=== PATIENT | female | born 1995 | race Caucasian/White ===

== ENCOUNTER 2018-03-23 12:16 | Emergency (ER) | payer BC ==
[~2018-03-23] VITALS: Ht 165.1 cm; Wt 63.6 kg
[2018-03-23 14:08] LABS: BASO % 0.4 % (0.0-1.0); EOS % 0.5 % (0.0-3.0); HEMATOCRIT 44.3 % (36.0-47.0); HEMOGLOBIN 15.2 g/dl (12.0-15.5); LYMPH # 2.3 10^3/uL (1.5-6.5); LYMPH % 26.5 % (24.0-44.0); MEAN CORPUSCULAR HEMOGLOBIN 30.9 pg (27.0-33.0); MEAN CORPUSCULAR HGB CONC 34.3 g/dl (32.0-36.5); MONO # 0.5 10^3/uL (0.0-0.8); MONO % 6.1 % (0.0-5.0); NEUTROPHILS # 5.6 10^3/uL (1.8-7.7); NEUTROPHILS % 66.3 % (36.0-66.0); PLATELET COUNT, AUTOMATED 279 10^3/uL (150-450); RED BLOOD COUNT 4.92 10^6/uL (4.00-5.40); WHITE BLOOD COUNT 8.5 10^3/uL (4.0-10.0)
--- NOTE | 2018-03-23 14:18 | REP ---
Chest two views HISTORY: Chest pain Comparison: None The lungs are clear. The heart is normal in size. The pulmonary vasculature is normal in appearance. The bony structure is intact. IMPRESSION: No acute disease. Electronically Signed by Sriram Tavares MD 03/23/2018 02:10 P
[2018-03-23 14:50] LABS: HCG, SERUM QUALITATIVE NEGATIVE (NEGATIVE)
[2018-03-23 15:16] LABS: ERYTHROCYTE SEDIMENTATION RATE 2 mm/hr (0-20)
[2018-03-23 15:44] LABS: ALBUMIN 4.4 GM/DL (3.2-5.2); ALT/SGPT 26 U/L (12-78); BILIRUBIN,DIRECT 0.1 MG/DL (0.0-0.2); BILIRUBIN,TOTAL 0.3 MG/DL (0.2-1.0); BLOOD UREA NITROGEN 12 MG/DL (7-18); C REACTIVE PROTEIN QUANTITATIV < 0.30 MG/DL (0.00-0.30); CALCIUM LEVEL 9.2 MG/DL (8.5-10.1); CARBON DIOXIDE LEVEL 24 MEQ/L (21-32); CHLORIDE LEVEL 106 MEQ/L (98-107); CK-MB VALUE MASS < 1.0 NG/ML (<3.6); CPK CREATINE PHOSPHOKINASE 85 U/L (26-192); CREATININE FOR GFR 0.84 MG/DL (0.55-1.30); GLUCOSE, FASTING 88 MG/DL (70-100); LIPASE 210 U/L (73-393); MB/CK RELATIVE INDEX 1.18 (< OR =4); POTASSIUM SERUM 4.3 MEQ/L (3.5-5.1); SODIUM LEVEL 139 MEQ/L (136-145); TOTAL PROTEIN 8.1 GM/DL (6.4-8.2); TROPONIN I < 0.02 NG/ML (< 0.10)
[2018-03-23 16:05] VITALS: BP 122/68
--- NOTE | 2018-03-24 09:01 | ECGEPIP ---
Stationary ECG Study [facility] - ED Test Date: 2018-03-23 Pat Name: ANDREA BOLAND Department: Room: - Gender: F Dairy Clerk: tk : 1995 Requested By: BYRON VERGARA Order Number: [id number] Reading MD: Zuri Lo Measurements Intervals [place] Rate: 87 P: 44 [place]: 104 QRS: 46 QRSD: 103 T: -6 QT: 371 QTc: 446 Interpretive Statements SINUS RHYTHM WITH SHORT [place] INTERVAL MODERATE ST DEPRESSION NO PRIOR FOR COMPARISON Electronically Signed On 03-24-2018 9:01:21 EST by Zuri Lo
== END 2018-03-23 16:06 | disposition home or self-care (01) ==
LOC: M ED 12:16
DX: R07.89 Other chest pain (principal); F43.10 Post-traumatic stress disorder, unspecified; F41.9 Anxiety disorder, unspecified; F32.9 Major depressive disorder, single episode, unspecified; Z82.49 Family history of ischemic heart disease and other diseases of the circulatory system; Z88.0 Allergy status to penicillin; Z88.5 Allergy status to narcotic agent; Z91.89 Other specified personal risk factors, not elsewhere classified

== ENCOUNTER → 2018-04-26 | Outpatient (REF) | payer BC ==
[2018-04-26 20:47] LABS: BACTERIA, URINE AUTO 1+ (NEGATIVE); RBC, URINE AUTO 0 /HPF (0-3); SQUAMOUS EPITHELIAL CELL UR AU 1 /HPF (0-6); WBC, URINE AUTO 0 /HPF (0-3)
[2018-04-26 22:05] LABS: CHLAMYDIA DNA AMPLIFICATION NEGATIVE (NEGATIVE); GC DNA AMPLIFICATION NEGATIVE (NEGATIVE)
== END ==
LOC: M LAB REF 19:12
PROVIDERS: ATTEND Physician Assistant
DX: R30.0 Dysuria (principal)

== ENCOUNTER → 2018-11-24 | Outpatient (REF) | payer OTHER ==
[~2018-11-24] MED LIST: ACET1TAB55 PO; PRENTAB9 PO
== END ==
LOC: M SFHCLERA 10:22
PROVIDERS: ATTEND Nurse Practitioner Family
DX: J02.9 Acute pharyngitis, unspecified (principal)

== ENCOUNTER 2018-12-02 12:43 | Emergency (ER) | payer OTHER ==
[~2018-12-02] VITALS: Ht 167.6 cm; Wt 75.0 kg
[2018-12-02 13:16] LABS: BASO % 0.5 % (0.0-1.0); EOS # 0.1 10^3/uL (0.0-0.5); EOS % 0.7 % (0.0-3.0); HEMATOCRIT 43.6 % (36.0-47.0); HEMOGLOBIN 14.9 g/dl (12.0-15.5); LYMPH # 2.5 10^3/uL (1.5-5.0); LYMPH % 29.9 % (24.0-44.0); MEAN CORPUSCULAR HGB CONC 34.2 g/dl (32.0-36.5); MEAN CORPUSCULAR VOLUME 90.8 fl (80.0-96.0); MONO # 0.6 10^3/uL (0.0-0.8); MONO % 6.9 % (0.0-5.0); NEUTROPHILS # 5.3 10^3/uL (1.5-8.5); NEUTROPHILS % 61.8 % (36.0-66.0); PLATELET COUNT, AUTOMATED 329 10^3/uL (150-450); WHITE BLOOD COUNT 8.5 10^3/uL (4.0-10.0)
--- NOTE | 2018-12-02 14:14 | REP ---
Vaginal bleeding. PRIORS: None. Transvesical and transvaginal imaging was obtained. The uterus measures 7.1 x 4.4 x 4.8 cm. Within the endometrial cavity, there is an anechoic structure with increased echoes surrounding it, consistent with a decidual reaction. The mean gestational sac diameter is consistent with a 5 week 3 day gestational age. A tiny anechoic structure is seen within the gestational sac, consistent with a yolk sac. Doppler interrogation shows no evidence of cardiac activity. The right ovary measures 3.2 x 1.7 x 2.1 cm and is within normal limits with a 2 cm sized dominant follicle. The right ovarian RI is 0.45. The left ovary measures 2.5 x 1.5 x 1.2 cm and is within normal limits. Left ovarian RI is 0.54. There is a trace amount of free fluid in the pelvis, which is most probably physiologic. IMPRESSION: Early OB ultrasound, as described above. Electronically Signed by Kane Jasso DO 12/02/2018 03:20 P
[2018-12-02 14:21] LABS: BLOOD UREA NITROGEN 13 MG/DL (7-18); CALCIUM LEVEL 9.4 MG/DL (8.5-10.1); CARBON DIOXIDE LEVEL 27 MEQ/L (21-32); CHLORIDE LEVEL 103 MEQ/L (98-107); CREATININE FOR GFR 0.84 MG/DL (0.55-1.30); GLOMERULAR FILTRATION RATE > 60.0 (>60); GLUCOSE, FASTING 92 MG/DL (70-100); HCG, SERUM QUANTITATIVE 1986 MIU/ML; POTASSIUM SERUM 4.1 MEQ/L (3.5-5.1); SODIUM LEVEL 137 MEQ/L (136-145)
[2018-12-02 14:45] VITALS: BP 130/82
[2018-12-02 17:03] LABS: CHLAMYDIA DNA AMPLIFICATION NEGATIVE (NEGATIVE); GC DNA AMPLIFICATION NEGATIVE (NEGATIVE)
[2018-12-02] MEDS ORDERED: PRENTAB9 PO (18:34)
[2018-12-02] MEDS ORDERED: ACET1TAB55 PO (18:37)
== END 2018-12-02 15:29 | disposition home or self-care (01) ==
LOC: M ED 12:43
DX: O20.0 Threatened abortion (principal); Z3A.01 Less than 8 weeks gestation of pregnancy; Z88.0 Allergy status to penicillin; Z88.5 Allergy status to narcotic agent; Z91.041 Radiographic dye allergy status

== ENCOUNTER 2018-12-02 17:59 | Emergency (ER) | payer OTHER ==
[~2018-12-02] VITALS: Ht 167.6 cm; Wt 75.0 kg
[2018-12-02] MEDS ORDERED: PRENTAB9 PO (18:34)
[2018-12-02] MEDS ORDERED: ACET1TAB55 PO (18:37)
[2018-12-02 19:15] VITALS: BP 137/80
== END 2018-12-02 19:22 | disposition home or self-care (01) ==
LOC: M ED 17:59
DX: O20.0 Threatened abortion (principal); Z88.0 Allergy status to penicillin; Z88.5 Allergy status to narcotic agent; Z91.041 Radiographic dye allergy status

== ENCOUNTER 2018-12-08 21:48 | Emergency (ER) | payer OTHER ==
[~2018-12-08] VITALS: Ht 167.6 cm; Wt 72.7 kg
[2018-12-08 22:23] LABS: BASO # 0.1 10^3/uL (0.0-0.2); BASO % 0.6 % (0.0-1.0); EOS # 0.2 10^3/uL (0.0-0.5); EOS % 1.7 % (0.0-3.0); HEMOGLOBIN 14.3 g/dl (12.0-15.5); LYMPH # 3.7 10^3/uL (1.5-5.0); LYMPH % 42.1 % (24.0-44.0); MEAN CORPUSCULAR VOLUME 91.1 fl (80.0-96.0); MONO # 0.8 10^3/uL (0.0-0.8); MONO % 9.6 % (0.0-5.0); NEUTROPHILS % 45.8 % (36.0-66.0); PLATELET COUNT, AUTOMATED 329 10^3/uL (150-450); RED BLOOD COUNT 4.61 10^6/uL (4.00-5.40); WHITE BLOOD COUNT 8.7 10^3/uL (4.0-10.0)
--- NOTE | 2018-12-08 23:21 | REPVR ---
PROCEDURE INFORMATION: Exam: US , Transvaginal Exam date and time: 12/08/2018 10:43 PM Clinical history: 23 years old, female; Lmp or gestational age (in weeks): 10/14/18; Other: Vaginal bleeding for approx 1 week TECHNIQUE: Imaging protocol: Real-time transvaginal obstetrical ultrasound of the maternal pelvis and a first trimester with image documentation. Transvaginal imaging was used for better evaluation of the fetus and adnexa. COMPARISON: No relevant prior studies available. FINDINGS: GESTATION: Gestation: No gestational sac demonstrated. This patient would be 8 weeks using LMP of 10/14/2018 MATERNAL: Uterus: Uterus measures 8.1 x 3.5 x 4.4 cm. Endometrial echocomplex measures 3.5 mm. Right adnexa: Right ovary measures 2.9 but 1.9 x 2 cm. Normal flow. Resistive index 0.56 Left adnexa: Left ovary measures 2.4 x 1.7 x 1.3 cm. Normal flow. Resistive index 0.5. Intraperitoneal: Minimal free fluid in the cul-de-sac. IMPRESSION: Empty uterus in a patient with vaginal bleeding with an estimated gestational age of 8 weeks based on LMP. Finding may indicate very early IUP prior to visualization of a gestational sac or fetus. Correlation with serial beta-hCG levels and follow ultrasound recommended in order to exclude ectopic verses very early or early failure. Electronically signed by: Eze Crawford On 12/08/2018 23:20:51 PM
[2018-12-09 00:23] VITALS: BP 130/6
== END 2018-12-09 00:24 | disposition home or self-care (01) ==
LOC: M ED 21:48
DX: O03.9 Complete or unspecified spontaneous abortion without complication (principal); E28.2 Polycystic ovarian syndrome; F33.9 Major depressive disorder, recurrent, unspecified; F41.9 Anxiety disorder, unspecified; F43.10 Post-traumatic stress disorder, unspecified; Z3A.08 8 weeks gestation of pregnancy; Z88.0 Allergy status to penicillin; Z88.5 Allergy status to narcotic agent; Z88.8 Allergy status to other drugs, medicaments and biological substances

== ENCOUNTER 2019-05-29 09:11 | Emergency (ER) | payer BC, OTHER ==
[~2019-05-29] VITALS: Ht 165.1 cm; Wt 75.0 kg
[2019-05-29] MEDS ORDERED: phenergan (09:19)
[2019-05-29 13:19] VITALS: BP 113/66
== END 2019-05-29 13:21 | disposition home or self-care (01) ==
LOC: M ED 09:11
DX: O99.350 Diseases of the nervous system complicating pregnancy, unspecified trimester (principal); R56.9 Unspecified convulsions; Z3A.25 25 weeks gestation of pregnancy; Z88.0 Allergy status to penicillin; Z88.6 Allergy status to analgesic agent; Z88.8 Allergy status to other drugs, medicaments and biological substances

== ENCOUNTER 2019-06-07 15:51 | Outpatient (CLI) | payer BC, OTHER ==
[~2019-06-07] VITALS: Ht 165.1 cm; Wt 79.2 kg
[~2019-06-07 15:51] MED LIST changes: +phenergan
[2019-06-07 16:24] VITALS: BP 141/69
[2019-06-07 16:44] VITALS: BP 130/76
--- NOTE | 2019-06-07 17:09 | IPN ---
DATE: 06/07/2019 A 23-year-old 3, para 0-0-2-0 female at 26 weeks gestation presents with 2 weeks of lower abdominal cramping. Pain starts in her midabdomen and radiates down low near the groin. It has gotten worse in the last 2 days. The pain is worse when she is standing upright. It is improved when she is laying down. She denies pain with urination. She just moved here from [place]. She has not had care in 6 weeks. OBJECTIVE: Blood pressure 141/69, pulse 84. She is in no apparent distress. Head and neck exam: Normal. Lungs: Clear. Heart: Regular rate and rhythm. Abdomen: Nontender, gravid. heart tones: Category 1. Contractions: None. Sterile Vaginal Exam: Long, closed, posterior. Positive tenderness over pubic bone to palpation. ASSESSMENT: A 23-year-old 3, para 0-0-2-0 female at 26 plus weeks gestation, presents with abdominal pain. The biggest cause of pain is pubic joint diastasis. PLAN: Patient will rest, take Tylenol as needed. She will followup with Dr. Amaro on 06/26/2019 as scheduled.
[2019-06-08] MEDS ORDERED: ACET-897 PO (05:05)
[2019-06-08] MEDS ORDERED: PYRI1TAB5 PO (08:08)
== END 2019-06-07 17:04 | disposition home or self-care (01) ==
LOC: M LDO 15:51
PROVIDERS: ATTEND Specialist
DX: O26.892 Other specified pregnancy related conditions, second trimester (principal); R10.2 Pelvic and perineal pain; Z3A.26 26 weeks gestation of pregnancy
CPT/HCPCS: 59025; G0378; G0463

== ENCOUNTER 2019-06-08 04:37 | Outpatient (CLI) | payer BC, OTHER ==
[~2019-06-08] VITALS: Ht 165.1 cm; Wt 79.8 kg
[2019-06-08 04:56] VITALS: BP 129/85
[2019-06-08] MEDS ORDERED: ACET-897 PO (05:05)
[2019-06-08] MEDS ORDERED: LACTATED RINGER'S 1000 ML IV STA (06:02)
[2019-06-08] MEDS ORDERED: LR 1,000 ML IV SCH (06:02)
[2019-06-08 06:16] LABS: BASO % 0.3 % (0.0-1.0); EOS # 0.1 10^3/uL (0.0-0.5); EOS % 0.7 % (0.0-3.0); HEMATOCRIT 33.7 % (36.0-47.0); HEMOGLOBIN 11.6 g/dl (12.0-15.5); LYMPH # 2.5 10^3/uL (1.5-5.0); LYMPH % 16.4 % (24.0-44.0); MEAN CORPUSCULAR HGB CONC 34.4 g/dl (32.0-36.5); MEAN CORPUSCULAR VOLUME 92.8 fl (80.0-96.0); MONO # 1.3 10^3/uL (0.0-0.8); MONO % 8.5 % (0.0-5.0); NEUTROPHILS % 73.3 % (36.0-66.0); PLATELET COUNT, AUTOMATED 272 10^3/uL (150-450); RED BLOOD COUNT 3.63 10^6/uL (4.00-5.40)
--- NOTE | 2019-06-08 06:50 | REPVR ---
PROCEDURE INFORMATION: Exam: US Retroperitoneal Limited, Kidneys Exam date and time: 06/08/2019 6:34 AM Age: 23 years old Clinical indication: Abdominal pain; ; Additional info: Hematuria, abdominal pain TECHNIQUE: Imaging protocol: Real-time ultrasound of the retroperitoneum with image documentation. Examination was focused on the kidneys. COMPARISON: No relevant prior studies available. FINDINGS: Right kidney: The right kidney measures 10.4 cm in sagittal dimension. There is no renal mass. There is no hydronephrosis. Left kidney: The left kidney measures 10.9 cm in sagittal dimension. There is mild hydronephrosis which may be physiologic. There is no renal mass or perinephric collection. Bladder: The bladder is decompressed. IMPRESSION: Mild left hydronephrosis which may be physiologic, but correlation with clinical history recommended. Electronically signed by: Santi James On 06/08/2019 06:50:01 AM
[2019-06-08] MEDS ORDERED: cefTRIAXone SOD 1 GM in D5W MINI-BAG PLUS 50 ML IV ONE (08:00)
[2019-06-08] MEDS ORDERED: PHENAZOPYRIDINE 100 MG TAB PO SCH (08:00)
[2019-06-08] MEDS ORDERED: PYRI1TAB5 PO (08:08)
[2019-06-08] MEDS ORDERED: PHENAZOPYRIDINE 100 MG TAB As Ordered ONE (08:57)
--- NOTE | 2019-06-08 11:02 | IPN ---
DATE OF EVALUATION: 06/08/2019 23-year-old, (G) 3, para (P) 0-0-2-0, female at 26 and 6/7 weeks gestation who presents with lower abdominal cramping. She feels the pain is in her urethra. She has urinary urgency, but voids very little if she tries to void. She was up most of the night with pain upon urination. She has mild abdominal cramping. She was reportedly treated intensely for urinary tract infections in [place]. However, she claims the infections never completely resolved. OBJECTIVE: Blood pressure 129/85. Pulse 120. Temperature 98. Respiratory rate 18. She is in no apparent distress. Head and Neck Exam: Normal. Lungs: Clear. Heart: Regular. Abdomen: Nontender, soft, gravid. heart tones Category 1. Contractions: None. Pelvic Exam: Patient refused. Extremities: Nontender. LABS: Urinalysis 2+ blood, 1+ leukocyte esterase, 2+ bacteria. ASSESSMENT: 23-year-old, G3, P0, female at 26 and 6/7 weeks gestation with probable urinary tract infection, possible renal nephrolithiasis. PLAN: Plan to obtain renal ultrasound. Will treat for presumed urinary tract infection (UTI) with IV Rocephin. Consider Pyridium to help with symptoms. Await results of urine culture.
== END 2019-06-08 10:30 | disposition home or self-care (01) ==
LOC: M LDO 04:37
PROVIDERS: ATTEND Specialist
DX: O26.892 Other specified pregnancy related conditions, second trimester (principal); R39.89 Other symptoms and signs involving the genitourinary system; N13.39 Other hydronephrosis; Z3A.26 26 weeks gestation of pregnancy
CPT/HCPCS: 76775; 81001; 85025; 87086; 96374; G0378; G0463; J0696

== ENCOUNTER 2019-06-11 21:24 | Outpatient (CLI) | payer BC, OTHER ==
[~2019-06-11] VITALS: Ht 165.1 cm; Wt 80.5 kg
[~2019-06-11 21:24] MED LIST changes: +ACET-897 PO; +PYRI1TAB5 PO
[2019-06-11 21:46] VITALS: BP 133/94
--- NOTE | 2019-06-11 23:36 | REPVR ---
PROCEDURE INFORMATION: Exam: US Abdomen Complete Exam date and time: 06/11/2019 11:15 PM Age: 23 years old Clinical indication: Abdominal pain; Acute; ; Additional info: Severe luq pain with hisotry of pancreatitis TECHNIQUE: Imaging protocol: Real-time ultrasound of the abdomen with image documentation. COMPARISON: RENAL US 06/08/2019 6:18 AM FINDINGS: Liver: The liver demonstrates no focal defects. Gallbladder: Status post cholecystectomy. Common bile duct: The common bile duct measures 3 mm. Pancreas: The pancreas is normal. Right kidney: The right kidney is normal measuring 10.8 cm with no hydronephrosis. Left kidney: The left kidney measures 11.0 cm with mild hydronephrosis. There is a nonobstructing left renal calculus. Spleen: The spleen is normal measuring 9.8 cm. Bladder: The visualized urinary bladder is incompletely filled. Inferior vena cava: Single intrauterine fetus with heartbeat 147 bpm. IMPRESSION: 1. Single live intrauterine fetus. 2. Status post cholecystectomy. 3. Mild left hydronephrosis with nonobstructing left renal calculus. 4. Otherwise negative abdominal sonogram. Electronically signed by: Jeramy Rousseau On 06/11/2019 23:36:51 PM
[2019-06-11] MEDS ORDERED: traMADol 50 MG TAB PO ONE (23:45)
[2019-06-11] MEDS ORDERED: PROMETHAZINE 25 MG TAB PO ONE (23:45)
[2019-06-12 03:19] VITALS: BP 124/73
[2019-06-12 07:15] VITALS: BP 135/77
[2019-06-12 07:40] VITALS: BP 138/81
[2019-06-12] MEDS ORDERED: traMADol 50 MG TAB PO ONE ×2 (09:00→15:30)
[2019-06-12] MEDS ORDERED: TAMSULOSIN 0.4 MG CAP PO SCH (09:00)
[2019-06-12] MEDS ORDERED: PROMETHAZINE 25 MG TAB PO ONE ×2 (09:00→16:30)
--- NOTE | 2019-06-12 09:25 | IPNPDOC ---
Text Note Date of Service The patient was seen on 06/12/19. NOTE Subjective: Patient is a at 27.3 weeks gestation with an DANIELA of 09/08/19. She has an appointment with Dr. Amaro in the first week in June. She has been in and out of L&D 4 times in the last week. She presents with complaints of severe LUQ pain that has been occurring for some time but started to get severe yesterday. She reports pain to be a 10/10 and can be some what managed with Phenergan, Ultram, and Tylenol. When she arrived to unit her pain was a 4 out of 10 but when she moves she reports it to be a 7/10. She reports pain is worse when she eats and she can't eat without getting the severe pain and nausea. She is also complaining of LLQ pain as cramping and left flank pain. The flank pain she reports is uncomfortable and is about a 4 but at times it gets to a 10. She was diagnosed yesterday with mild hydronephrosis with kidney stones that are not obstructive in her left kidney. Patient was able to eat a regular breakfast this morning and keep it down. She has received 2 doses of pain medication. Medical history: pancreatitis due to cholelithiasis, kidney stones, PCOS, CHTN but not on medication, asthma but not using an inhaler, heart murmur Surgical history: D&C for missed AB, gallbladder, wisdom teeth Family history: melanoma, HTN, brain tumor, breast cancer, cervical cancer. Social history: Just moved from [place]. Denies being a smoker. Denies history of alcohol or drug abuse. Objective: VS and ultrasounds: see below. FHR 130, moderate variability no decelerations. Contractions none. A+Ox3. Respiratory rate is regular with no use of accessory muscles. Abdomen: Fundus size is appropriate for gestation. Non- tender to palpation. +CVA tenderness left sided. Assessment: IUP at 27.3, kidney stones, LUQ pain, left sided flank pain and LLQ pain. Plan: Patient has multiple allergies and adverse reactions to medications and has declined most medications that were recommended to help with her pain. She was reordered Ultram 100 mg and Phenergan 25 mg PO to help with nausea and pain. Flomax ordered. Patient declined it as she states it causes her to pass out. Will continue to monitor for improvement. VS,Fishbone, I+O VS, Fishbone, I+O Vital Signs Date Time Temp Pulse Resp B/P (MAP) Pulse Ox O2 Delivery O2 Flow Rate FiO2 06/12/19 08:22 18 Room Air 06/12/19 07:40 106 138/81 (100) 06/12/19 07:15 98.6 06/12/19 03:19 98 NAME: ANDREA CLIFFORD DATE OF : 1995 BUSINESS NUMBER: [id number] AGE: 23 SEX: F REPORT #: [id number] ROOM: [facility] TECHNOLOGIST: [facility] DOCTOR: CARLOS ALBERTO ROQUE CNM Ordered for Date&Time: 06/11/19 914 cc: [~ rep ct ivnm] Service Date&Time: 06/11/19 7959 EXAMINATION REQUESTED: ABD COMPLETE US REASON FOR PATIENT VISIT: ABD PAIN REASON FOR EXAMINATION: severe LUQ pain with hisotry of pancreatitis PROCEDURE INFORMATION: Exam: US Abdomen Complete Exam date and time: 06/11/2019 11:15 PM Age: 23 years old Clinical indication: Abdominal pain; Acute; ; Additional info: Severe luq pain with hisotry of pancreatitis TECHNIQUE: Imaging protocol: Real-time ultrasound of the abdomen with image documentation. COMPARISON: RENAL US 06/08/2019 6:18 AM FINDINGS: Liver: The liver demonstrates no focal defects. Gallbladder: Status post cholecystectomy. Common bile duct: The common bile duct measures 3 mm. Pancreas: The pancreas is normal. Right kidney: The right kidney is normal measuring 10.8 cm with no hydronephrosis. Left kidney: The left kidney measures 11.0 cm with mild hydronephrosis. There is a nonobstructing left renal calculus. Spleen: The spleen is normal measuring 9.8 cm. Bladder: The visualized urinary bladder is incompletely filled. Inferior vena cava: Single intrauterine fetus with heartbeat 147 bpm. IMPRESSION: 1. Single live intrauterine fetus. 2. Status post cholecystectomy. 3. Mild left hydronephrosis with nonobstructing left renal calculus. 4. Otherwise negative abdominal sonogram. Electronically signed by: Domnigo Rousseau On 06/11/2019 23:36:51 PM DD: DOMINGO ROUSSEAU MD 06/11/19 4926 DT: VR 06/11/196 DS: LISA 06/11/196 cc: [~ rep ct ivnm] Service Date&Time: 06/08/19 0634 EXAMINATION REQUESTED: RENAL US REASON FOR PATIENT VISIT: PAIN IN URETHRA REASON FOR EXAMINATION: hematuria, abdominal pain PROCEDURE INFORMATION: Exam: US Retroperitoneal Limited, Kidneys Exam date and time: 06/08/2019 6:34 AM Age: 23 years old Clinical indication: Abdominal pain; ; Additional info: Hematuria, abdominal pain TECHNIQUE: Imaging protocol: Real-time ultrasound of the retroperitoneum with image documentation. Examination was focused on the kidneys. COMPARISON: No relevant prior studies available. FINDINGS: Right kidney: The right kidney measures 10.4 cm in sagittal dimension. There is no renal mass. There is no hydronephrosis. Left kidney: The left kidney measures 10.9 cm in sagittal dimension. There is mild hydronephrosis which may be physiologic. There is no renal mass or perinephric collection. Bladder: The bladder is decompressed. IMPRESSION: Mild left hydronephrosis which may be physiologic, but correlation with clinical history recommended. Electronically signed by: Santi James On 06/08/2019 06:50:01 AM CARLOS ALBERTO ROQUE CNM Jun 12, 2019 09:25
[2019-06-12 10:06] VITALS: BP 127/73
[2019-06-12] MEDS ORDERED: LACTATED RINGER'S 1000 ML IV STA (14:50)
[2019-06-12] MEDS ORDERED: LR 1,000 ML IV SCH (14:50)
[2019-06-12] MEDS ORDERED: traMADol 50 MG TAB PO PRN (15:00)
[2019-06-12] MEDS ORDERED: PROMETHAZINE INJ 25 MG/ML VIAL (J2550) IV PRN (15:00)
[2019-06-12 17:47] VITALS: BP 149/83
[2019-06-12 19:20] VITALS: BP 125/80
[2019-06-12] MEDS ORDERED: TRAM50TA2 PO (20:27)
[2019-06-12] MEDS ORDERED: PROM12.56 PO (20:29)
== END 2019-06-12 20:41 | disposition home or self-care (01) ==
LOC: M LDO 21:24
PROVIDERS: ATTEND Advanced Practice Midwife
DX: O26.892 Other specified pregnancy related conditions, second trimester (principal); Z3A.27 27 weeks gestation of pregnancy; R10.32 Left lower quadrant pain; N13.30 Unspecified hydronephrosis; N20.0 Calculus of kidney; O99.282 Endocrine, nutritional and metabolic diseases complicating pregnancy, second trimester; E28.2 Polycystic ovarian syndrome; Z90.49 Acquired absence of other specified parts of digestive tract; Z79.899 Other long term (current) drug therapy; Z91.041 Radiographic dye allergy status; Z88.0 Allergy status to penicillin; Z88.5 Allergy status to narcotic agent; Z88.3 Allergy status to other anti-infective agents; Z91.013 Allergy to seafood; Z91.048 Other nonmedicinal substance allergy status; Z88.8 Allergy status to other drugs, medicaments and biological substances
CPT/HCPCS: 59025; 76700; G0378; G0463

== ENCOUNTER → 2019-06-28 | Outpatient (CLI) | payer BC, OTHER ==
[~2019-06-28] MED LIST changes: +PROM12.56 PO; +TRAM50TA2 PO
[2019-06-28 14:04] LABS: HEMOGLOBIN 11.8 g/dl (12.0-15.5); MEAN CORPUSCULAR HEMOGLOBIN 30.9 pg (27.0-33.0); MEAN CORPUSCULAR HGB CONC 33.7 g/dl (32.0-36.5); MEAN CORPUSCULAR VOLUME 91.6 fl (80.0-96.0); PLATELET COUNT, AUTOMATED 297 10^3/uL (150-450); RED BLOOD COUNT 3.82 10^6/uL (4.00-5.40); WHITE BLOOD COUNT 16.4 10^3/uL (4.0-10.0)
[2019-06-28 14:10] LABS: CREATININE 24 HOUR, URINE 980.9 MG/24HR (600-1800); CREATININE, URINE 85.3 MG/DL; TOTAL PROTEIN 24 HOUR URINE 264.5 MG/24HR (50-150)
[2019-06-28 14:23] LABS: ALBUMIN 2.9 GM/DL (3.2-5.2); ALT/SGPT 18 U/L (12-78); BILIRUBIN,TOTAL 0.2 MG/DL (0.2-1.0); BLOOD UREA NITROGEN 8 MG/DL (7-18); CALCIUM LEVEL 9.1 MG/DL (8.5-10.1); CARBON DIOXIDE LEVEL 24 MEQ/L (21-32); CHLORIDE LEVEL 107 MEQ/L (98-107); GLOMERULAR FILTRATION RATE > 60.0 (>60); GLUCOSE CHALLENGE TEST 1 HOUR 99 MG/DL (LESS THAN 140); GLUCOSE, FASTING 99 MG/DL (70-100); POTASSIUM SERUM 3.7 MEQ/L (3.5-5.1); SODIUM LEVEL 138 MEQ/L (136-145); TOTAL PROTEIN 6.8 GM/DL (6.4-8.2)
== END ==
LOC: M LAB 12:17
PROVIDERS: ATTEND Obstetrics & Gynecology
DX: Z34.83 Encounter for supervision of other normal pregnancy, third trimester (principal)

== ENCOUNTER → 2019-07-18 | Outpatient (CLI) | payer BC, OTHER | LOC: M LABSMTC 11:53 | PROVIDERS: ATTEND Family Medicine | DX: Z11.59 Encounter for screening for other viral diseases (principal); Z20.828 Contact with and (suspected) exposure to other viral communicable diseases ==

== ENCOUNTER → 2019-08-07 | Outpatient (REF) | payer BC | LOC: M LAB REF 16:32 | PROVIDERS: ATTEND Obstetrics & Gynecology | DX: Z34.83 Encounter for supervision of other normal pregnancy, third trimester (principal) ==

== ENCOUNTER → 2019-08-15 | Outpatient (REF) | payer BC | LOC: M LAB REF 16:02 | PROVIDERS: ATTEND Obstetrics & Gynecology | DX: N39.0 Urinary tract infection, site not specified (principal) ==

== ENCOUNTER 2019-09-13 15:18 | Inpatient (IN) | payer BC, OTHER ==
[~2019-09-13] VITALS: Ht 165.1 cm; Wt 94.9 kg
[2019-09-13] VITALS (35 sets, daily range): BP systolic 97–137; BP diastolic 50–86
[2019-09-13] MEDS ORDERED: LACTATED RINGER'S 1000 ML IV STA (15:28)
[2019-09-13] MEDS ORDERED: LR 1,000 ML IV ONE (15:30)
[2019-09-13] MEDS: LR 1,000 ML IV SCH ×4 (16:17→22:02)
[2019-09-13] MEDS ORDERED: OXYTOCIN 30 UNITS IN 0.9% NaCl 500ML IV BAG (J2590) As Ordered ONE (16:49)
[2019-09-13] MEDS ORDERED: OXYTOCIN DRIP 30 UNITS in IV 1 EA IV SCH (17:00)
[2019-09-13] MEDS ORDERED: BUTORPHANOL 2 MG/ML INJ (J0595) IV ONE (17:00)
[2019-09-13] MEDS ORDERED: PROMETHAZINE INJ 25 MG/ML VIAL (J2550) IM ONE (17:00)
[2019-09-13 19:22] LABS: HEMATOCRIT 36.1 % (36.0-47.0); HEMOGLOBIN 11.9 g/dl (12.0-15.5); MEAN CORPUSCULAR HEMOGLOBIN 29.7 pg (27.0-33.0); PLATELET COUNT, AUTOMATED 232 10^3/uL (150-450); RED BLOOD COUNT 4.01 10^6/uL (4.00-5.40); WHITE BLOOD COUNT 15.2 10^3/uL (4.0-10.0)
[2019-09-13] MEDS ORDERED: FENTANYL 2MCG/ML ROPIVACAINE 0.2% IN 0.9% NACL 100ML IVBAG As Ordered ONE (20:25)
[2019-09-13] MEDS ORDERED: REFRIGERATOR IV KEYS XX PRN (21:53)
[2019-09-13] MEDS ORDERED: EPIDURAL COMMENT XX SCH (21:53)
[2019-09-13] MEDS ORDERED: ePHEDrine SULFATE 25 MG/5 ML(5MG/ML) SYRINGE IV PRN (21:53)
[2019-09-13] MEDS ORDERED: EPIDURAL/PCA KEYS XX PRN (21:53)
[2019-09-13] MEDS ORDERED: diphenhydrAMINE 50MG/ML VIAL (J1200) IV PRN (21:53)
[2019-09-13] MEDS ORDERED: ONDANSETRON 4MG/2ML VIAL IV PRN (21:53)
[2019-09-13] MEDS ORDERED: LACTATED RINGER'S 1000 ML IV PRN (21:53)
[2019-09-13] MEDS ORDERED: NALOXONE INJ 0.4MG/1ML VIAL (J2310 PER 1MG) IV PRN (21:53)
[2019-09-14] VITALS (43 sets, daily range): BP systolic 100–154; BP diastolic 50–80
[2019-09-14] MEDS ORDERED: FENTANYL 2MCG/ML ROPIVACAINE 0.2% IN 0.9% NACL 100ML IVBAG As Ordered ONE (03:39)
[2019-09-14] MEDS: FENTANYL/ROPIVACAINE/NACL BAG 100 ML EPIDURAL SCH ×2 (03:47→09:08)
[2019-09-14] MEDS: LR 1,000 ML IV SCH (05:18)
[2019-09-14 11:25] LABS: CORD GAS ABE A -5.6; CORD GAS HCO3 A 22.5 MEQ/L; CORD GAS O2 SAT A 16.3 %; CORD GAS PCO2 A 54.7 mmHg; CORD GAS PH A 7.233 UNITS; CORD GAS PO2 A 13.3 mmHg; CORD GAS SBC A 18.2 MEQ/L; CORD GAS TCO2 A 24.2 MEQ/L
[2019-09-14] MEDS ORDERED: OXYTOCIN DRIP 30 UNITS in IV 1 EA IV SCH (11:25)
[2019-09-14 11:26] LABS: CORD GAS ABE V -3.9; CORD GAS HCO3 V 22.4 MEQ/L; CORD GAS O2 SAT V 54.1 %; CORD GAS PCO2 V 45.2 mmHg; CORD GAS PH V 7.313 UNITS; CORD GAS SBC V 20.3 MEQ/L; CORD GAS TCO2 V 23.8 MEQ/L
[2019-09-14] MEDS ORDERED: ACETAMINOPHEN TAB 650MG DOSE (2X325MG) PO PRN (11:30)
[2019-09-14] MEDS ORDERED: RHOGAM 300 MCG (1500 IU) INJ (J2790) IM SCH (11:30)
[2019-09-14] MEDS ORDERED: METHYLERGONOVINE MALEATE 0.2 MG TAB PO PRN (11:30)
[2019-09-14] MEDS ORDERED: MEASLES,MUMPS,RUBELLA VACCINE INJ (MMR-II) (90707) SC SCH (11:30)
[2019-09-14] MEDS ORDERED: DIBUCAINE 1% OINTMENT 30GM TOP PRN (11:30)
[2019-09-14] MEDS ORDERED: IBUPROFEN 600MG TAB PO PRN (11:30)
[2019-09-14] MEDS ORDERED: MOM 30ML SUSPENSION UDC PO PRN (11:30)
[2019-09-14] MEDS ORDERED: DOCUSATE SODIUM 100 MG CAP PO PRN (11:30)
[2019-09-14] MEDS ORDERED: ANUSOL HC CREAM 30GM TOP PRN (11:30)
[2019-09-14] MEDS: IBUPROFEN 800 MG TAB PO PRN ×2 (11:51→20:55)
[2019-09-14] MEDS: ACETAMINOPHEN 500 MG TAB PO PRN (17:50)
[2019-09-14] MEDS: DOCUSATE SODIUM 100 MG CAP PO SCH (20:20)
[2019-09-15] MEDS: ACETAMINOPHEN 500 MG TAB PO PRN ×3 (01:10→21:11)
[2019-09-15] MEDS: IBUPROFEN 800 MG TAB PO PRN ×2 (05:59→14:07)
[2019-09-15 06:00] VITALS: BP 122/60
--- NOTE | 2019-09-15 07:21 | IPNPDOC ---
Text Note Date of Service The patient was seen on 09/15/19. NOTE PP#1 Feels well. Adequate pain management. . Voiding VSS, afebrile, normotensive Breasts soft, nipples intact Fundus firm, NT, down 1 FB Lochia rubra light without odor Perineum intact PP#1 Routine care. Anticipate D/C in am VS,Fishbone, I+O VS, Fishbone, I+O Vital Signs Date Time Temp Pulse Resp B/P (MAP) Pulse Ox O2 Delivery O2 Flow Rate FiO2 09/15/19 06:00 97.8 95 18 122/60 (80) I&O- Last 24 Hours up to 6 AM 09/15/19 06:00 Intake Total 2032.3 ml Output Total 2200 ml Balance -167.7 ml Zina Washburn CNM Sep 15, 2019 07:21
[2019-09-15 08:05] VITALS: BP 122/60
--- NOTE | 2019-09-15 09:48 | HPE ---
DATE OF ADMISSION: 09/13/2019 Tr is a 23-year-old female 3, para 0-0-2-0 with an estimated date of confinement (EDC) of 09/11/2019, estimated gestational age (EGA) 40-2/7 weeks gestation who is being admitted after presenting to the office with complaint of contractions and bleeding. Upon evaluation, she was found to be in labor. At this point, a decision was made for admission. Her record reviewed. The patient is a late transfer to our office at approximately 28 weeks gestation. Her care with us was essentially unremarkable. lab: Blood type is A+, rubella immune, hepatitis negative, HIV negative, GC/chlamydia negative, 1-hour sugar testing was within normal limits. Her GBS is negative. PAST MEDICAL HISTORY: The patient gave a history of questionable high blood pressure, but has not been on antihypertensive meds all throughout the and did well. The patient also gave a vague history of possible seizures. Upon further evaluation, she was not found to have a seizure disorder and has not been on any meds. The patient does have a history of asthma for which she has not been hospitalized during this and not taking any medication. PAST SURGICAL HISTORY: Significant for cholecystectomy, dilation and curettage (D and C), wisdom tooth extraction. SOCIAL HISTORY: She is . Denies any alcohol, drug or cigarette smoking. FAMILY HISTORY: Significant for high blood pressure. MEDICATIONS: vitamin. ALLERGIES: To PENICILLIN, SHELLFISH, IODINE, CONTRAST DYE and METOCLOPRAMIDE. PHYSICAL EXAMINATION: Normal appearing female in no acute distress. Abdomen: Soft, nontender, nondistended. Extremities: No clubbing, cyanosis or edema. Vaginal exam: 3-4 cm dilated, 80% effaced, fetus at -2 station and vertex position. Tracing reviewed, category one tracing, contractions every 3-5 minutes. ASSESSMENT; Intrauterine at 40-2/7 weeks gestation, in labor, GBS negative. PLAN: Admit to labor and delivery. Routine labs sent. Pain management discussed. The patient wants no pain meds at this point; will continue to monitor. Anticipate delivery.
[2019-09-15] MEDS: DOCUSATE SODIUM 100 MG CAP PO SCH ×2 (10:16→21:10)
[2019-09-15] MEDS: PRENATAL VITAMINS CHEWABLE TABLET PO SCH (10:16)
[2019-09-15 18:01] VITALS: BP 123/83
[2019-09-16] MEDS: ACETAMINOPHEN 500 MG TAB PO PRN (05:48)
[2019-09-16 06:00] VITALS: BP 120/76
[2019-09-16] MEDS: PRENATAL VITAMINS CHEWABLE TABLET PO SCH (08:31)
[2019-09-16] MEDS: DOCUSATE SODIUM 100 MG CAP PO SCH (08:31)
[2019-09-16] MEDS: IBUPROFEN 800 MG TAB PO PRN (13:21)
--- NOTE | 2019-09-16 16:52 | DN ---
DATE: 09/14/2019 Tr is a 23-year-old female, 3, para 0-0-2-0, who was admitted at 40-2/7 weeks gestation. She progressed to fully dilated after Pitocin augmentation and artificial rupture of membranes. She then pushed and delivered a live female infant in a left occiput anterior position. scores 8 and 9. weight 8 pounds 5 ounces. Placenta delivered spontaneously intact. Three-vessel cord. Perineum, vagina and cervix inspected. Second-degree midline perineal laceration noted which was repaired using 2-0 Chromic. Estimated blood loss 300 mL. Both mother and baby in stable condition.
== END 2019-09-16 18:25 | disposition home or self-care (01) | DRG 560 ==
LOC: M LDI 15:18 → M OBS 09-14 13:42
PROVIDERS: ADMIT Obstetrics & Gynecology; ATTEND Obstetrics & Gynecology
PROC: 10E0XZZ Delivery of Products of Conception, External Approach (ICD-10-PCS; principal; 2019-09-14)
PROC: 0KQM0ZZ Repair Perineum Muscle, Open Approach (ICD-10-PCS; 2019-09-14)
PROC: 10907ZC Drainage of Amniotic Fluid, Therapeutic from Products of Conception, Via Natural or Artificial Opening (ICD-10-PCS; 2019-09-14)
DX: O48.0 Post-term pregnancy (principal); O70.1 Second degree perineal laceration during delivery; Z37.0 Single live birth; Z3A.40 40 weeks gestation of pregnancy

== ENCOUNTER 2019-12-05 13:12 | Emergency (ER) | payer BC, OTHER ==
[~2019-12-05] VITALS: Ht 165.1 cm; Wt 83.2 kg
[2019-12-05 13:12] VITALS: BP 153/81
[~2019-12-05 13:12] MED LIST changes: +CLEO300C2 PO
[2019-12-05] MEDS ORDERED: AZIT-12 PO (14:23)
== END 2019-12-05 14:29 | disposition home or self-care (01) ==
LOC: M ED 13:12
DX: J01.90 Acute sinusitis, unspecified (principal); I10 Essential (primary) hypertension; J45.909 Unspecified asthma, uncomplicated; E28.2 Polycystic ovarian syndrome; Z88.0 Allergy status to penicillin; Z88.2 Allergy status to sulfonamides; Z88.8 Allergy status to other drugs, medicaments and biological substances; Z88.6 Allergy status to analgesic agent; Z91.013 Allergy to seafood; Z91.048 Other nonmedicinal substance allergy status

== ENCOUNTER → 2020-02-11 | Outpatient (REF) | payer BC, OTHER ==
[~2020-02-11] MED LIST changes: +AZIT-12 PO
[2020-02-11 12:27] LABS: BASO % 0.4 % (0.0-1.0); EOS # 0.1 10^3/uL (0.0-0.5); EOS % 1.4 % (0.0-3.0); HEMATOCRIT 42.6 % (36.0-47.0); HEMOGLOBIN 14.1 g/dl (12.0-15.5); LYMPH # 2.4 10^3/uL (1.5-5.0); LYMPH % 33.9 % (24.0-44.0); MEAN CORPUSCULAR HEMOGLOBIN 29.3 pg (27.0-33.0); MEAN CORPUSCULAR HGB CONC 33.1 g/dl (32.0-36.5); MEAN CORPUSCULAR VOLUME 88.4 fl (80.0-96.0); MONO # 0.5 10^3/uL (0.0-0.8); MONO % 6.9 % (0.0-5.0); NEUTROPHILS % 57.3 % (36.0-66.0); PLATELET COUNT, AUTOMATED 319 10^3/uL (150-450); RED BLOOD COUNT 4.82 10^6/uL (4.00-5.40)
[2020-02-11 13:02] LABS: ERYTHROCYTE SEDIMENTATION RATE 7 mm/hr (0-20)
[2020-02-11 13:19] LABS: ALT/SGPT 30 U/L (12-78); BILIRUBIN,TOTAL 0.3 MG/DL (0.2-1.0); BLOOD UREA NITROGEN 13 MG/DL (7-18); CALCIUM LEVEL 9.2 MG/DL (8.5-10.1); CARBON DIOXIDE LEVEL 26 MEQ/L (21-32); CHLORIDE LEVEL 106 MEQ/L (98-107); CREATININE FOR GFR 0.93 MG/DL (0.55-1.30); GLOMERULAR FILTRATION RATE > 60.0 (>60); GLUCOSE, FASTING 92 MG/DL (70-100); POTASSIUM SERUM 4.2 MEQ/L (3.5-5.1); RHEUMATOID FACTOR QUANT < 10.0 IU/ML (<15.0); SODIUM LEVEL 138 MEQ/L (136-145); THYROID STIMULATING HORMONE 0.972 uIU/ML (0.358-3.740); TOTAL PROTEIN 7.5 GM/DL (6.4-8.2)
[2020-02-13 16:14] LABS: ANTINUCLEAR ANTIBODIES DIRECT Negative (Negative); CYCLIC CITRULLINATED PEPTIDE 5 units (0-19); Lyme Disease IgG Ab 18 kDa Ban Absent (.); Lyme Disease IgG Ab 23 kDa Ban Absent (.); Lyme Disease IgG Ab 28 kDa Ban Absent (.); Lyme Disease IgG Ab 30 kDa Ban Absent (.); Lyme Disease IgG Ab 39 kDa Ban Absent (.); Lyme Disease IgG Ab 41 kDa Ban Absent (.); Lyme Disease IgG Ab 45 kDa Ban Absent (.); Lyme Disease IgG Ab 58 kDa Ban Absent (.); Lyme Disease IgG Ab 66 kDa Ban Absent (.); Lyme Disease IgG Ab 93 kDa Ban Absent (.); Lyme Disease IgG West Blot Int Negative (.); Lyme Disease IgG/IgM Antibodie <0.91 ISR (0.00-0.90); Lyme Disease IgM Ab 23 kDa Ban Absent (.); Lyme Disease IgM Ab 39 kDa Ban Absent (.); Lyme Disease IgM Ab 41 kDa Ban Absent (.); Lyme Disease IgM Ab Quantitati 1.72 index (0.00-0.79); Lyme Disease IgM West Blot Int Negative (.)
== END ==
LOC: M LAB REF 11:28
PROVIDERS: ATTEND Physician Assistant
DX: R19.7 Diarrhea, unspecified (principal); R76.8 Other specified abnormal immunological findings in serum; R53.83 Other fatigue; M12.9 Arthropathy, unspecified

== ENCOUNTER → 2020-03-06 | Outpatient (REF) | payer OTHER | LOC: M LAB REF 16:30 | PROVIDERS: ATTEND Physician Assistant | DX: R30.9 Painful micturition, unspecified (principal) ==

== ENCOUNTER 2020-03-07 09:47 | Emergency (ER) | payer OTHER ==
[~2020-03-07] VITALS: Ht 165.1 cm; Wt 80.7 kg
[2020-03-07 10:48] LABS: BASO % 0.5 % (0.0-1.0); EOS # 0.1 10^3/uL (0.0-0.5); EOS % 0.9 % (0.0-3.0); HEMATOCRIT 43.2 % (36.0-47.0); HEMOGLOBIN 14.2 g/dl (12.0-15.5); MEAN CORPUSCULAR HEMOGLOBIN 28.6 pg (27.0-33.0); MEAN CORPUSCULAR HGB CONC 32.9 g/dl (32.0-36.5); MEAN CORPUSCULAR VOLUME 86.9 fl (80.0-96.0); MONO # 0.4 10^3/uL (0.0-0.8); MONO % 6.7 % (0.0-5.0); NEUTROPHILS % 60.6 % (36.0-66.0); PLATELET COUNT, AUTOMATED 313 10^3/uL (150-450); RED BLOOD COUNT 4.97 10^6/uL (4.00-5.40); WHITE BLOOD COUNT 6.6 10^3/uL (4.0-10.0)
[2020-03-07 11:08] LABS: ALT/SGPT 55 U/L (12-78); BILIRUBIN,DIRECT 0.1 MG/DL (0.0-0.2); BILIRUBIN,TOTAL 0.4 MG/DL (0.2-1.0); BLOOD UREA NITROGEN 8 MG/DL (7-18); CARBON DIOXIDE LEVEL 24 MEQ/L (21-32); CHLORIDE LEVEL 108 MEQ/L (98-107); GLOMERULAR FILTRATION RATE > 60.0 (>60); GLUCOSE, FASTING 95 MG/DL (70-100); HCG, SERUM QUALITATIVE NEGATIVE (NEGATIVE); LIPASE 178 U/L (73-393); POTASSIUM SERUM 4.2 MEQ/L (3.5-5.1); SODIUM LEVEL 139 MEQ/L (136-145); TOTAL PROTEIN 7.7 GM/DL (6.4-8.2)
--- NOTE | 2020-03-07 12:01 | REP ---
INDICATION: r flank pain into lower abd. COMPARISON: None. TECHNIQUE: Abdomen and pelvis CT without IV or bowel contrast. FINDINGS: There is a nonobstructive 9 mm calculus in the right renal lower pole. There are no left renal calculi. There is no hydronephrosis/hydroureter on the right or the left. There is no pararenal stranding on the right or the left. The the visualized lung anderson are unremarkable. The unenhanced hepatic parenchyma is homogeneous. There are surgical clips in the gallbladder fossa. The pancreas and spleen are normal size and unremarkable. The adrenals are unremarkable. The abdominal aorta is unremarkable. There is no periaortic adenopathy or mass. The bowel and mesentery are unremarkable. There are no inflammatory changes in the mesentery. There is no ascites. Pelvis: The appendix is obscured by bowel loops and is not identified as a distinct structure. However, there is no pericecal inflammation or abscess. No mesenteric adenopathy is identified. The uterus, adnexa and bladder are unremarkable. There is no pelvic adenopathy or ascites. The pelvic bowel loops are unremarkable. IMPRESSION: There is a nonobstructive right renal calculus. No ureteral calculi. No hydronephrosis. Cholecystectomy. The pancreas is obscured by bowel loops. However, there is no pericecal inflammation or abscess. There is no ascites. No adenopathy. Uterus and adnexa are unremarkable. Bowel and mesentery are unremarkable. Otherwise, essentially negative abdominal/pelvis CT without IV contrast. <Electronically signed by Nikos Buchanan > 03/07/20 [id number]
[2020-03-07 13:23] VITALS: BP 106/62
== END 2020-03-07 13:43 | disposition home or self-care (01) ==
LOC: M ED 09:47
DX: N20.0 Calculus of kidney (principal); J45.909 Unspecified asthma, uncomplicated; E28.2 Polycystic ovarian syndrome; F33.9 Major depressive disorder, recurrent, unspecified; F41.9 Anxiety disorder, unspecified; K21.9 Gastro-esophageal reflux disease without esophagitis; Z88.0 Allergy status to penicillin; Z88.5 Allergy status to narcotic agent; Z88.8 Allergy status to other drugs, medicaments and biological substances; Z91.018 Allergy to other foods; Z91.041 Radiographic dye allergy status; Z91.048 Other nonmedicinal substance allergy status

== ENCOUNTER → 2020-04-02 | Outpatient (REF) | payer OTHER ==
[~2020-04-02] MED LIST changes: +ASPE4PAD TOP; +PANT20TA6 PO
[2020-04-02 13:32] LABS: BASO % 0.4 % (0.0-1.0); EOS # 0.1 10^3/uL (0.0-0.5); EOS % 1.1 % (0.0-3.0); HEMATOCRIT 41.5 % (36.0-47.0); LYMPH # 2.2 10^3/uL (1.5-5.0); LYMPH % 39.4 % (24.0-44.0); MEAN CORPUSCULAR HEMOGLOBIN 29.6 pg (27.0-33.0); MEAN CORPUSCULAR HGB CONC 33.7 g/dl (32.0-36.5); MEAN CORPUSCULAR VOLUME 87.7 fl (80.0-96.0); MONO # 0.4 10^3/uL (0.0-0.8); NEUTROPHILS # 2.9 10^3/uL (1.5-8.5); NEUTROPHILS % 51.9 % (36.0-66.0); PLATELET COUNT, AUTOMATED 275 10^3/uL (150-450); RED BLOOD COUNT 4.73 10^6/uL (4.00-5.40); WHITE BLOOD COUNT 5.5 10^3/uL (4.0-10.0)
[2020-04-04 16:09] LABS: Lyme Disease IgG Ab 18 kDa Ban Absent (.); Lyme Disease IgG Ab 23 kDa Ban Absent (.); Lyme Disease IgG Ab 28 kDa Ban Absent (.); Lyme Disease IgG Ab 30 kDa Ban Absent (.); Lyme Disease IgG Ab 39 kDa Ban Absent (.); Lyme Disease IgG Ab 41 kDa Ban Absent (.); Lyme Disease IgG Ab 45 kDa Ban Absent (.); Lyme Disease IgG Ab 58 kDa Ban Absent (.); Lyme Disease IgG Ab 66 kDa Ban Absent (.); Lyme Disease IgG Ab 93 kDa Ban Absent (.); Lyme Disease IgG West Blot Int Negative (.); Lyme Disease IgG/IgM Antibodie <0.91 ISR (0.00-0.90); Lyme Disease IgM Ab 23 kDa Ban Absent (.); Lyme Disease IgM Ab 39 kDa Ban Absent (.); Lyme Disease IgM Ab 41 kDa Ban Absent (.); Lyme Disease IgM Ab Quantitati 1.38 index (0.00-0.79); Lyme Disease IgM West Blot Int Negative (.)
== END ==
LOC: M LAB REF 11:27
PROVIDERS: ATTEND Physician Assistant
DX: Z03.89 Encounter for observation for other suspected diseases and conditions ruled out (principal)

== ENCOUNTER 2020-04-03 14:19 | Emergency (ER) | payer OTHER ==
[~2020-04-03] VITALS: Ht 165.1 cm; Wt 78.6 kg
[~2020-04-03 14:19] MED LIST changes: -ASPE4PAD TOP; -PANT20TA6 PO
--- OUTSIDE RECORDS SUMMARY | 2020-04-03 14:25 | CCD ---
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 Role Phone Jadyn Chelly Unavailable PROBLEMS No Information ALLERGIES Allergen (clinical drug ingredient) Drug/Non Drug Allergy do cumented on EMR Reaction Allergy Type Onset Date Status Shellfish Anaphylaxis Non Drug Allergy Active amoxicillin Amoxicillin([facility] Code:[address]-28) Anaphylaxis Drug Chavez rgy Active Contrast Allergy PreMed Pack([facility] Code:[address]-78) A naphylaxis Drug Allergy Active povidone-iodine Betadine(ND Code:[address]-44) Anaphylaxis Drug All ergy Active Gluten Unknown Non Drug Allergy Active Penicillin (For Allergies Use Only) Anaphylaxis Drug Aller gy Active ENCOUNTERS from 1995 to 2020-04-01 Encounter Location Date Provider Diagnosis [facility] [address] [place] [address] Mar Chelly Salamanca IMMUNIZATIONS No Information SOCIAL HISTORY Tobacco Use: Social History Observation Description Date Details (start date - stop date) Sex Assigned At : Social History Observation Description Sex Assigned At Unknown Tobacco Use: Question Answer Notes Are you a: never smoker REASON FOR REFERRAL No Information VITAL SIGNS No information MEDICATIONS Medication SIG (Take, Route, Frequency, Duration) Notes Start Da te End Date Status - 1 tablet Orally Once a day for 30 day(s) Active PROCEDURES No Information RESULTS No Results REASON FOR VISIT Cancel appointment Goals Section No Information Health Concerns No Information MEDICAL EQUIPMENT No Information MENTAL STATUS No Information FUNCTIONAL STATUS No Information ASSESSMENTS No Information PLAN OF TREATMENT No Information Insurance Providers Payer Name Payer Address Payer Phone Insured Name Patient Relati onship to Insured Coverage Start Date Coverage End Date [facility] [id number] [facility] [id number]
--- OUTSIDE RECORDS SUMMARY | 2020-04-03 14:25 | CCD ---
Author Organization Unknown Address [address] [place] [id number] Phone [phone] Care Team Providers Care Licensed Dispensing Optician Name Role Phone Jennifer Barclay Unavailable Unavailable Allergies Code Code System Name Reaction Severity Status Onset RxNorm Betadine Anaphylaxis Severe Active Iodinated Contrast Media Anaphylaxis Severe Active Nsaids (Non- steroidal Anti-inflammatory Drug) Nausea Moderate to Severe Active Penicillins Anaphylaxis Severe Active 9229 RxNorm Reglan Bradycardia Severe Active Shellfish Derived Anaphylaxis Severe Active Medications Name Status Start Date Stop Date azithromycin 250 mg tablet TAKE 2 TABLETS BY MOUTH ON DAY 1 AND THEN TAKE 1 TABLET BY MOUTH ONCE A DAY ON DAY 2 THROUGH DAY 5 Completed 01/31/2020 Joanie (28) Active Not available clindamycin HCl 300 mg capsule TAKE 1 CAPSULE BY MOUTH THREE TIMES DAILY Completed 01/31/2020 esomeprazole magnesium 40 mg capsule,del ayed release TAKE 1 CAPSULE BY MOUTH ONCE DAILY Completed 10/2020 famotidine 20 mg tablet TAKE 1 TABLET BY MOUTH TWICE DAILY Active Not available ibuprofen Active Not available meclizine 12.5 mg tablet Completed nitrofurantoin monohydrate/macrocrystals 100 mg capsule Complete d 01/31/2020 ondansetron 4 mg disintegrating tablet Completed 01/31/2020 ondansetron HCl 4 mg tablet Completed 01/19 phenazopyridine 200 mg tablet Completed promethazine 12.5 mg tablet TAKE 1 TABLET BY MOUTH EVERY 6 TO 8 HOURS NEEDED FOR MOTION SICKNESS Completed 01/31/2020 sulfamethoxazole 800 mg-trimethoprim 160 mg tablet Completed 01/31/2020 tramadol 50 mg tablet Completed 01/31/2020 Tylenol Extra Strength 500 mg tablet Completed 03/28/2020 Problems Name Status Onset Date Source Mixed Anxiety and Depressive Disorder Active 10/11/[address] Concept Unknown 10/11/2018 History Finding of Frequency of Menstruation Active 10/11/2018 History Cyst of Ovary Active 01/31/2020 Procedures Date Name Performed by Extraction of [place] Notes: X 4 Information not available Cholecystectomy Information not avai lable Results Lab Results Date Name Specimen Result Interpretation Description Value Range Status Address 03/07/2020 CBC W/ Auto Diff Normal White Blood Count 6.6 10 4.0-10.0 10 [facility]: [address] [place] [address] Normal Red Blood Count 4.97 10 4.00-5.40 10 [facility]: [address] [place] [address] Normal Hemoglobin 14.2 g/dL 12.0-15.5 g/dL [facility]: [address] [place] [address] Normal Hematocrit 43.2 % 36.0-47.0 % [facility]: [address] [place] [address] Normal Mean Corpuscular Volume 86.9 fL 80.0 -96.0 fL [facility]: [address] [place] [address] Normal Mean Corpuscular Hemoglobin 28.6 pg 27.0-33.0 pg [facility]: [address] [place] [address] Normal Mean Corpuscular HGB Conc 32.9 g/dL 32.0-36.5 g/dL [facility]: [address] [place] [address] Normal Red Cell Distribution Width 11.9 % 1 1.5-14.5 % [facility]: [address] [place] [address] Normal Platelet Count, Automated 313 10 150 -450 10 [facility]: 0 [facility] Normal Neutrophils % 60.6 % 36.0-66.0 % [facility]: [address] [facility] Normal Lymph % 31.0 % 24.0-44.0 % [facility]: [address] [facility] High Butler % 6.7 % 0.0-5.0 % [facility]: [address] [place] [address] Normal Eos % 0.9 % 0.0-3.0 % [facility]: [address] [place] [address] Normal Baso % 0.5 % 0.0-1.0 % [facility]: [address] [facility] Normal Immature Granulocyte % 0.3 % 0-3.0 % [facility]: [address] [facility] Normal Nucleated Red Blood Cell % 0.0 % 0- 0 % [facility]: [address] [facility] Normal Neutrophils # 4.0 10 1.5-8.5 10 [facility]: [address] [facility] Normal Lymph # 2.0 10 1.5-5.0 10 [facility]: [address] [facility] Normal Butler # 0.4 10 0.0-0.8 10 [facility]: 0 [facility] Normal Eos # 0.1 10 0.0-0.5 10 [facility]: [address] [facility] Normal Baso # 0.0 10 0.0-0.2 10 [facility]: 0 [facility] 03/07/2020 Hepatic Function Panel, Serum Normal AST/SG OT 22 U/L 7-37 U/L [facility]: 0 [facility] Normal ALT/SGPT 55 U/L 12-78 U/L [facility]: 0 [facility] Normal Alkaline Phosphatase 88 U/L 45-117 U /L [facility]: 0 [facility] Normal Bilirubin,total 0.4 mg/dL 0.2-1.0 mg /dL [facility]: 0 [facility] Normal Bilirubin,direct 0.1 mg/dL 0.0-0.2 m g/dL [facility]: [address] [facility] Normal Total Protein 7.7 gm/dL 6.4-8.2 gm/d L [facility]: 0 [facility] Normal Albumin 4.0 gm/dL 3.2-5.2 gm/dL [facility]: 0 [facility] Low Albumin/globulin Ratio 1.1 1.2-2. 2 [facility]: 0 [facility] 03/07/2020 BMP, Serum or Plasma Normal Glucose, Fastin g 95 mg/dL 70-100 mg/dL [facility]: 83 0 [facility] Normal Blood Urea Nitrogen 8 mg/dL 7-18 mg/ dL [facility]: [address] [facility] Normal Creatinine for GFR 0.90 mg/dL 0.55-1 .30 mg/dL [facility]: [address] [facility] Normal Glomerular Filtration Rate > 60.0 >6 0 [facility]: [address] [facility] Normal Sodium Level 139 mEq/L 136-145 mEq/L [facility]: [address] [facility] Normal Potassium Serum 4.2 mEq/L 3.5-5.1 mE q/L [facility]: [address] [facility] High Chloride Level 108 mEq/L 98-107 mEq/ L [facility]: [address] [facility] Normal Carbon Dioxide Level 24 mEq/L 21-32 mEq/L [facility]: [address] [facility] Low Anion Gap 7 mEq/L 8-16 mEq/L [facility]: [address] [facility] Normal Calcium Level 9.0 mg/dL 8.5-10.1 mg/ dL [facility]: [address] [facility] 03/07/2020 Lipase, Serum or Plasma Normal Lipase 178 U/L 73-393 U/L [facility]: [address] [facility] 03/07/2020 beta-HCG, Qualitative, Serum or Plasma Normal HCG, Serum Qualitative negative negative [facility]: [address] [facility] 03/07/2020 UA W/ Reflex to Culture Normal Appearance, Urine Rfx clear clear [facility]: 83 0 [facility] Normal Color, Urine Rfx yellow yellow [facility]: [address] [facility] Normal pH,urine Rfx 5.0 units 5.0-9.0 units [facility]: [address] [facility] Normal Specific [place] Ur Auto Rfx 1.014 1.002-1.035 [facility]: [address] [facility] Normal Protein, Urine Auto Rfx negative mg/ dL negative mg/dL [facility]: [address] [facility] Normal Glucose, Urine (UA) Auto Rfx n egative mg/dL negative mg/dL [facility]: [address] [facility] Normal Ketone, Urine Auto Rfx negative mg/d L negative mg/dL [facility]: [address] [facility] Normal Urobilinogen, Urine Auto Rfx 0.2 mg/ dL 0.0-2.0 mg/dL [facility]: [address] [facility] Normal Bilirubin, Urine Auto Rfx negative n egative [facility]: [address] [facility] Normal Nitrite, Urine Auto Rfx negative neg ative [facility]: [address] [facility] High Leukocyte Esterase Ur Auto Rfx trace negative [facility]: [address] [facility] Normal Blood, Urine Blood Rfx negative nega tive [facility]: [address] [facility] Normal WBC, Urine Auto Rfx 3 /hpf 0-3 /hpf [facility]: [address] [facility] Normal RBC, Urine Auto Rfx 1 /hpf 0-3 /hpf [facility]: [address] [facility] Normal Bacteria, Urine Auto Rfx negative ne gative [facility]: [address] [facility] Normal Squam Epithelial Cell Ur Aurfx 1 /hp f 0-6 /hpf [facility]: [address] [facility] Normal Hyaline Cast, Urine Auto Rfx 0 /lpf 0-1 /lpf [facility]: [address] [facility] 03/07/2020 Culture, Urine URINE,CLEAN CATCH No observation recorded. [facility]: [address] [facility] 03/06/2020 Culture, Urine URINE,CLEAN CATCH No observation recorded. [facility]: [address] [facility] 03/06/2020 Urinalysis, Dipstick, Auto Bilirubin ne g [facility]: [address] [facility] Blood neg [facility] us Medical: [address] [facility] Glucose neg Main [facility] Medical: [address] [facility] Ketone neg [facility] pus Medical: [address] [facility] Leukocytes +1 [facility] Medical: [address] [facility] Nitrite neg [facility] Medical: [address] [facility] Ph 6.0 [facility] s Medical: [address] [facility] Protein +- Main [facility] Medical: [address] [facility] Specific [place] 1.030 [facility] Medical: [address] [facility] Urobilinogen neg Ma in [facility]: [address] [facility] 02/11/2020 CBC W/ Auto Diff Blood venous Normal White Blood C ount 7.0 10 4.0-10.0 10 [facility]: 83 0 [facility] Blood venous Normal Red Blood Count 4.82 10 4.00- 5.40 10 [facility]: [address] [facility] Blood venous Normal Hemoglobin 14.1 g/dL 12.0-15. 5 g/dL [facility]: [address] [facility] Blood venous Normal Hematocrit 42.6 % 36.0-47.0 % [facility]: [address] [facility] Blood venous Normal Mean Corpuscular Volume 88.4 fL 80.0-96.0 fL [facility]: [address] [facility] Blood venous Normal Mean Corpuscular Hemoglob in 29.3 pg 27.0-33.0 pg [facility]: [address] [facility] Blood venous Normal Mean Corpuscular HGB Conc 33.1 g/dL 32.0-36.5 g/dL [facility]: [address] [facility] Blood venous Normal Red Cell Distribution Wid th 11.9 % 11.5-14.5 % [facility]: [address] [facility] Blood venous Normal Platelet Count, Automated 319 10 150-450 10 [facility]: [address] [place] [address] Blood venous Normal Neutrophils % 57.3 % 36.0-66. 0 % [facility]: [address] [place] [address] Blood venous Normal Lymph % 33.9 % 24.0-44.0 % [facility]: [address] [place] [address] Blood venous High [place] % 6.9 % 0.0-5.0 % [facility]: [address] [place] [address] Blood venous Normal Eos % 1.4 % 0.0-3.0 % [facility]: [address] [place] [address] Blood venous Normal Baso % 0.4 % 0.0-1.0 % [facility]: [address] [place] [address] Blood venous Normal Immature Granulocyte % 0.1 % 0-3.0 % [facility]: [address] [place] [address] Blood venous Normal Nucleated Red Blood Cell % 0. 0 % 0-0 % [facility]: [address] [place] [address] Blood venous Normal Neutrophils # 4.0 10 1.5-8.5 10 [facility]: [address] [place] [address] Blood venous Normal Lymph # 2.4 10 1.5-5.0 10 [facility]: [address] [place] [address] Blood venous Normal Butler # 0.5 10 0.0-0.8 10 [facility]: [address] [place] [address] Blood venous Normal Eos # 0.1 10 0.0-0.5 10 [facility]: [address] [place] [address] Blood venous Normal Baso # 0.0 10 0.0-0.2 10 [facility]: [address] [place] [address] 02/11/2020 ESR (Erythrocyte Sedimentation Rate), Blood Blood venous Normal Erythrocyte Sedimentation Rate 7 mm/HR 0-20 mm/HR [facility]: [address] [place] [address] 02/11/2020 CMP, Serum or Plasma Blood venous Normal Glu cose, Fasting 92 mg/dL 70-100 mg/dL [facility] Ce nter: [address] [place], [place] [id number] Blood venous Normal Blood Urea Nitrogen 13 mg/dL 7-18 mg/dL [facility]: [address] [facility] Blood venous Normal Creatinine for GFR 0.93 mg/dL 0.55-1.30 mg/dL [facility]: [address] [facility] Blood venous Normal Glomerular Filtration Rate > 60.0 >60 [facility]: [address] [facility] Blood venous Normal Sodium Level 138 mEq/L 136-14 5 mEq/L [facility]: [address] [facility] Blood venous Normal Potassium Serum 4.2 mEq/L 3.5 -5.1 mEq/L [facility]: [address] [facility] Blood venous Normal Chloride Level 106 mEq/L 98-1 07 mEq/L [facility]: [address] [facility] Blood venous Normal Carbon Dioxide Level 26 mEq/L 21-32 mEq/L [facility]: [address] [facility] Blood venous Low Anion Gap 6 mEq/L 8-16 mEq/L [facility]: [address] [facility] Blood venous Normal Calcium Level 9.2 mg/dL 8.5-1 0.1 mg/dL [facility]: [address] [facility] Blood venous Normal AST/SGOT 13 U/L 7-37 U/L [facility]: [address] [facility] Blood venous Normal ALT/SGPT 30 U/L 12-78 U/L [facility]: [address] [facility] Blood venous Normal Alkaline Phosphatase 90 U/L 4 5-117 U/L [facility]: [address] [facility] Blood venous Normal Bilirubin,total 0.3 mg/dL 0.2 -1.0 mg/dL [facility]: [address] [facility] Blood venous Normal Total Protein 7.5 gm/dL 6.4-8 .2 gm/dL [facility]: [address] [facility] Blood venous Normal Albumin 4.0 gm/dL 3.2-5.2 gm/ dL [facility]: [address] [place] [address] Blood venous Low Albumin/globulin Ratio 1.1 1.2-2.2 [facility] Center: [address] [place] [address] 02/11/2020 TSH, Serum or Plasma Blood venous Normal Thyroid Stimulating Hormone 0.972 uIU/mL 0.358-3.740 uIU/mL [facility] ical Center: [address] [place] [address] 02/11/2020 Rf (Rheumatoid Factor), Serum Blood venous Normal Rheumatoid Factor Quant < 10.0 IU/mL <15.0 IU/mL [facility]: [address] [place] [address] 02/11/2020 C Reactive Protein, QN, Serum or Plasma Normal C Reactive Protein Quantitativ 0.30 mg/dL 0.00-0.30 mg/dL [facility]: [address] [place] [address] 02/11/2020 Cyclic Citrullinated Peptide Normal Cyclic Citrullinated Peptide 5 units 0-19 units [facility]: [address] [place] [address] 02/11/2020 Lyme Disease Igg+igm Ab, Serum Normal Lyme Disease IgG/IgM Antibodie <0.91 isr 0.00-0.90 isr [facility] Center: [address] [place] [address] High Lyme Disease IgM Ab Quantitati 1.72 index 0.00-0.79 index [facility]: [address] [place] [address] Normal Lyme Disease IgG Ab 93 kDa Ban absen t . [facility]: 0 [facility] Normal Lyme Disease IgG Ab 66 kDa Ban absen t . [facility]: 0 [facility] Normal Lyme Disease IgG Ab 58 kDa Ban absen t . [facility]: 0 [facility] Normal Lyme Disease IgG Ab 45 kDa Ban absen t . [facility]: [address] [place] [address] Normal Lyme Disease IgG Ab 41 kDa Ban absen t . [facility]: 0 [facility] Normal Lyme Disease IgG Ab 39 kDa Ban absen t . [facility]: [address] [place] [address] Normal Lyme Disease IgG Ab 30 kDa Ban absen t . [facility]: [address] [facility] Normal Lyme Disease IgG Ab 28 kDa Ban absen t . [facility]: [address] [facility] Normal Lyme Disease IgG Ab 23 kDa Ban absen t . [facility]: [address] [facility] Normal Lyme Disease IgG Ab 18 kDa Ban absen t . [facility]: [address] [facility] Normal Lyme Disease IgG [place] Int negat wayne . [facility]: [address] [facility] Normal Lyme Disease IgM Ab 41 kDa Ban absen t . [facility]: [address] [facility] Normal Lyme Disease IgM Ab 39 kDa Ban absen t . [facility]: [address] [facility] Normal Lyme Disease IgM Ab 23 kDa Ban absen t . [facility]: [address] [facility] Normal Lyme Disease IgM [place] Int negat wayne . [facility]: [address] [facility] 02/11/2020 LIU (Antinuclear Antibodies) Screen, Serum Blood venous Normal Antinuclear Antibodies Direct negative negative [facility]: [address] [facility] Past Encounters 04/02/2020 Jennifer Barclay PA-C: [address] [place] [phone], Ph. 03/28/2020 Nausea; Kidney Stone; Diarrhea Jennifer Barclay PA-C: [address] [place] [id number], Ph. 03/06/2020 Adult Health Examination; Mixed Anxiety and Depressive Disorder; Gastroesophageal Reflux Disease without Esophagitis; Dysuria Jennifer Barclay PA-C: [address] [place] [address], Ph. 02/11/2020 Jennifer Barclay PA-C: [address] [place] [phone], Ph. 01/31/2020 Diarrhea; Pruritic Rash; Anti-nuclear Factor Positive; Fatigue; Arthropathy; Gastroesophageal Reflux Disease without Esophagitis; Administration of Influenza Vaccine; Generalized Anxiety Disorder Jennifer Barclay PA-C: [address] [place] [address], Ph. Social History Tobacco Smoking Status Never Smoker Vaccine List Vaccine Type influenza, injectable, quadrivalent, pre servative free 01/31/20200.5 mL Plan of Care Reminders Provider Appointments None recorded. Lab None recorded. Referral None recorded. Procedures None recorded. Surgeries None recorded. Imaging None recorded. Vitals 03/28/2020 08:20AM ESTABLISHED [id number] Height Weight BMI Blood Pressure 65 in 173 lbs 16 oz 29 kg/m2 125/86 mm[Hg] 03/06/2020 01:00PM ANNUAL EXAM Height Weight BMI Blood Pressure 65 in 178 lbs 16 oz 29.8 kg/m2 110/81 mm[Hg] 01/31/2020 12:40PM ANNUAL EXAM Height Weight BMI Blood Pressure 65 in 183 lbs 2 oz 30.5 kg/m2 124/78 mm[Hg] 10/11/2018 Height Weight Blood Pressure 66 in 171 lbs 121/75 mm[Hg]
--- OUTSIDE RECORDS SUMMARY | 2020-04-03 14:25 | CCD ---
Author Organization Unknown Address [address] [place] [id number] Phone [phone] Care Team Providers Care Iphone Developer Name Role Phone Jennifer Barclay Unavailable Unavailable [...] Procedures Date Name Performed by Extraction of [place] Notes: X 4 Information not available Cholecystectomy Information not avai lable Results Lab Results Date Name Specimen Result Interpretation Description Value Range Status Address 03/07/2020 CBC W/ Auto Diff Normal White Blood Count 6.6 10 4.0-10.0 10 [facility]: [address] [place] [address] Normal Red Blood Count 4.97 10 4.00-5.40 10 [facility]: [address] [place] [address] Normal Hemoglobin 14.2 g/dL 12.0-15.5 g/dL [facility]: [address] [place] [address] Normal Hematocrit 43.2 % 36.0-47.0 % [facility]: [address] [place] [address] Normal Mean Corpuscular Volume 86.9 fL 80.0 -96.0 fL [facility]: [address] [place] [address] Normal Mean Corpuscular Hemoglobin 28.6 pg 27.0-33.0 pg [facility]: [address] [place] [address] Normal Mean Corpuscular HGB Conc 32.9 g/dL 32.0-36.5 g/dL [facility]: [address] [place] [address] Normal Red Cell Distribution Width 11.9 % 1 1.5-14.5 % [facility]: [address] [place] [address] Normal Platelet Count, Automated 313 10 150 -450 10 [facility]: 0 [facility] Normal Neutrophils % 60.6 % 36.0-66.0 % [facility]: [address] [facility] Normal Lymph % 31.0 % 24.0-44.0 % [facility]: [address] [facility] High [place] % 6.7 % 0.0-5.0 % [facility]: [address] [place] [address] Normal Eos % 0.9 % 0.0-3.0 % [facility]: [address] [place] [address] Normal Baso % 0.5 % 0.0-1.0 % [facility]: [address] [facility] Normal Immature Granulocyte % 0.3 % 0-3.0 % [facility]: [address] [facility] Normal Nucleated Red Blood Cell % 0.0 % 0- 0 % [facility]: 8[address] [facility] Normal Neutrophils # 4.0 10 1.5-8.5 10 [facility]: [address] [facility] Normal Lymph # 2.0 10 1.5-5.0 10 [facility]: [address] [facility] Normal [place] # 0.4 10 0.0-0.8 10 [facility]: 0 [facility] Normal Eos # 0.1 10 0.0-0.5 10 [facility]: [address] [facility] Normal Baso # 0.0 10 0.0-0.2 10 [facility]: 0 [facility] 03/07/2020 Hepatic Function Panel, Serum Normal AST/SG OT 22 U/L 7-37 U/L [facility]: 0 [facility] Normal ALT/SGPT 55 U/L 12-78 U/L [facility]: 0 [facility] Normal Alkaline Phosphatase 88 U/L 45-117 U /L [facility]: 0 [facility] Normal Bilirubin,total 0.4 mg/dL 0.2-1.0 mg /dL [facility]: 0 [facility] Normal Bilirubin,direct 0.1 mg/dL 0.0-0.2 m g/dL [facility]: [address] [facility] Normal Total Protein 7.7 gm/dL 6.4-8.2 gm/d L [facility]: 0 [facility] Normal Albumin 4.0 gm/dL 3.2-5.2 gm/dL [facility]: 0 [facility] Low Albumin/globulin Ratio 1.1 1.2-2. 2 [facility]: 0 [facility] 03/07/2020 BMP, Serum or Plasma Normal Glucose, Fastin g 95 mg/dL 70-100 mg/dL [facility]: 83 0 [facility] Normal Blood Urea Nitrogen 8 mg/dL 7-18 mg/ dL [facility]: [address] [facility] Normal Creatinine for GFR 0.90 mg/dL 0.55-1 .30 mg/dL [facility]: [address] [facility] Normal Glomerular Filtration Rate > 60.0 >6 0 [facility]: [address] [facility] Normal Sodium Level 139 mEq/L 136-145 mEq/L [facility]: [address] [facility] Normal Potassium Serum 4.2 mEq/L 3.5-5.1 mE q/L [facility]: [address] [facility] High Chloride Level 108 mEq/L 98-107 mEq/ L [facility]: [address] [facility] Normal Carbon Dioxide Level 24 mEq/L 21-32 mEq/L [facility]: [address] [facility] Low Anion Gap 7 mEq/L 8-16 mEq/L [facility]: [address] [facility] Normal Calcium Level 9.0 mg/dL 8.5-10.1 mg/ dL [facility]: [address] [facility] 03/07/2020 Lipase, Serum or Plasma Normal Lipase 178 U/L 73-393 U/L [facility]: [address] [facility] 03/07/2020 beta-HCG, Qualitative, Serum or Plasma Normal HCG, Serum Qualitative negative negative [facility]: [address] [facility] 03/07/2020 UA W/ Reflex to Culture Normal Appearance, Urine Rfx clear clear [facility]: 83 0 [facility] Normal Color, Urine Rfx yellow yellow [facility]: [address] [facility] Normal pH,urine Rfx 5.0 units 5.0-9.0 units [facility]: [address] [facility] Normal Specific [place] Ur Auto Rfx 1.014 1.002-1.035 [facility]: [address] [facility] Normal Protein, Urine Auto Rfx negative mg/ dL negative mg/dL [facility]: [address] [facility] Normal Glucose, Urine (UA) Auto Rfx n egative mg/dL negative mg/dL [facility]: [address] [facility] Normal Ketone, Urine Auto Rfx negative mg/d L negative mg/dL [facility]: [address] [facility] Normal Urobilinogen, Urine Auto Rfx 0.2 mg/ dL 0.0-2.0 mg/dL [facility]: [address] [facility] Normal Bilirubin, Urine Auto Rfx negative n egative [facility]: [address] [facility] Normal Nitrite, Urine Auto Rfx negative neg ative [facility]: [address] [facility] High Leukocyte Esterase Ur Auto Rfx trace negative [facility]: [address] [facility] Normal Blood, Urine Blood Rfx negative nega tive [facility]: [address] [facility] Normal WBC, Urine Auto Rfx 3 /hpf 0-3 /hpf [facility]: [address] [facility] Normal RBC, Urine Auto Rfx 1 /hpf 0-3 /hpf [facility]: [address] [facility] Normal Bacteria, Urine Auto Rfx negative ne gative [facility]: [address] [facility] Normal Squam Epithelial Cell Ur Aurfx 1 /hp f 0-6 /hpf [facility]: [address] [facility] Normal Hyaline Cast, Urine Auto Rfx 0 /lpf 0-1 /lpf [facility]: [address] [facility] 03/07/2020 Culture, Urine URINE,CLEAN CATCH No observation recorded. [facility]: [address] [facility] 03/06/2020 Culture, Urine URINE,CLEAN CATCH No observation recorded. [facility]: [address] [facility] 03/06/2020 Urinalysis, Dipstick, Auto Bilirubin ne g [facility]: [address] [facility] Blood neg [facility] us Medical: [address] [facility] Glucose neg [facility]: [address] [facility] Ketone neg [facility] pus Medical: [address] [facility] Leukocytes +1 [facility] Medical: [address] [facility] Nitrite neg [facility] Medical: [address] [facility] Ph 6.[facility] Medical: 238 [facility] Protein +- [facility]: [address] [facility] Specific [place] 1.030 [facility] Medical: [address] [facility] Urobilinogen neg [facility]: [address] [facility] 02/11/2020 CBC W/ Auto Diff Blood venous Normal White Blood C ount 7.0 10 4.0-10.0 10 [facility]: 83 0 [facility] Blood venous Normal Red Blood Count 4.82 10 4.00- 5.40 10 [facility]: [address] [facility] Blood venous Normal Hemoglobin 14.1 g/dL 12.0-15. 5 g/dL [facility]: [address] [facility] Blood venous Normal Hematocrit 42.6 % 36.0-47.0 % [facility]: [address] [facility] Blood venous Normal Mean Corpuscular Volume 88.4 fL 80.0-96.0 fL [facility]: [address] [facility] Blood venous Normal Mean Corpuscular Hemoglob in 29.3 pg 27.0-33.0 pg [facility]: [address] [facility] Blood venous Normal Mean Corpuscular HGB Conc 33.1 g/dL 32.0-36.5 g/dL [facility]: [address] [facility] Blood venous Normal Red Cell Distribution Wid th 11.9 % 11.5-14.5 % [facility]: [address] [facility] Blood venous Normal Platelet Count, Automated 319 10 150-450 10 [facility]: [address] [place] [address] Blood venous Normal Neutrophils % 57.3 % 36.0-66. 0 % [facility]: [address] [place] [address] Blood venous Normal Lymph % 33.9 % 24.0-44.0 % [facility]: [address] [place] [address] Blood venous High [place] % 6.9 % 0.0-5.0 % [facility]: [address] [place] [address] Blood venous Normal Eos % 1.4 % 0.0-3.0 % [facility]: [address] [place] [address] Blood venous Normal Baso % 0.4 % 0.0-1.0 % [facility]: [address] [place] [address] Blood venous Normal Immature Granulocyte % 0.1 % 0-3.0 % [facility]: [address] [place] [address] Blood venous Normal Nucleated Red Blood Cell % 0. 0 % 0-0 % [facility]: [address] [place] [address] Blood venous Normal Neutrophils # 4.0 10 1.5-8.5 10 [facility]: [address] [place] [address] Blood venous Normal Lymph # 2.4 10 1.5-5.0 10 [facility]: [address] [place] [address] Blood venous Normal [place] # 0.5 10 0.0-0.8 10 [facility]: [address] [place] [address] Blood venous Normal Eos # 0.1 10 0.0-0.5 10 [facility]: [address] [place] [address] Blood venous Normal Baso # 0.0 10 0.0-0.2 10 [facility]: [address] [place] [address] 02/11/2020 ESR (Erythrocyte Sedimentation Rate), Blood Blood venous Normal Erythrocyte Sedimentation Rate 7 mm/HR 0-20 mm/HR [facility]: [address] [place] [address] 02/11/2020 CMP, Serum or Plasma Blood venous Normal Glu cose, Fasting 92 mg/dL 70-100 mg/dL [facility] Ce nter: [address] [place], [place] [address] Blood venous Normal Blood Urea Nitrogen 13 mg/dL 7-18 mg/dL [facility]: [address] [facility] Blood venous Normal Creatinine for GFR 0.93 mg/dL 0.55-1.30 mg/dL [facility]: [address] [facility] Blood venous Normal Glomerular Filtration Rate > 60.0 >60 [facility]: [address] [facility] Blood venous Normal Sodium Level 138 mEq/L 136-14 5 mEq/L [facility]: [address] [facility] Blood venous Normal Potassium Serum 4.2 mEq/L 3.5 -5.1 mEq/L [facility]: [address] [facility] Blood venous Normal Chloride Level 106 mEq/L 98-1 07 mEq/L [facility]: [address] [facility] Blood venous Normal Carbon Dioxide Level 26 mEq/L 21-32 mEq/L [facility]: [address] [facility] Blood venous Low Anion Gap 6 mEq/L 8-16 mEq/L [facility]: [address] [facility] Blood venous Normal Calcium Level 9.2 mg/dL 8.5-1 0.1 mg/dL [facility]: [address] [facility] Blood venous Normal AST/SGOT 13 U/L 7-37 U/L [facility]: [address] [facility] Blood venous Normal ALT/SGPT 30 U/L 12-78 U/L [facility]: [address] [facility] Blood venous Normal Alkaline Phosphatase 90 U/L 4 5-117 U/L [facility]: [address] [facility] Blood venous Normal Bilirubin,total 0.3 mg/dL 0.2 -1.0 mg/dL [facility]: [address] [facility] Blood venous Normal Total Protein 7.5 gm/dL 6.4-8 .2 gm/dL [facility]: [address] [facility] Blood venous Normal Albumin 4.0 gm/dL 3.2-5.2 gm/ dL [facility]: [address] [place] [address] Blood venous Low Albumin/globulin Ratio 1.1 1.2-2.2 [facility] Center: [address] [place] [address] 02/11/2020 TSH, Serum or Plasma Blood venous Normal Thyroid Stimulating Hormone 0.972 uIU/mL 0.358-3.740 uIU/mL [facility] ical Center: [address] [place] [address] 02/11/2020 Rf (Rheumatoid Factor), Serum Blood venous Normal Rheumatoid Factor Quant < 10.0 IU/mL <15.0 IU/mL [facility] Center: [address] [place] [address] 02/11/2020 C Reactive Protein, QN, Serum or Plasma Normal C Reactive Protein Quantitativ 0.30 mg/dL 0.00-0.30 mg/dL [facility] Center: [address] [place] [address] 02/11/2020 Cyclic Citrullinated Peptide Normal Cyclic Citrullinated Peptide 5 units 0-19 units [facility] Center: [address] [place] [address] 02/11/2020 Lyme Disease Igg+igm Ab, Serum Normal Lyme Disease IgG/IgM Antibodie <0.91 isr 0.00-0.90 isr [facility] Center: [address] [place] [address] High Lyme Disease IgM Ab Quantitati 1.72 index 0.00-0.79 index [facility]: [address] [place] [address] Normal Lyme Disease IgG Ab 93 kDa Ban absen t . [facility]: 0 [facility] Normal Lyme Disease IgG Ab 66 kDa Ban absen t . [facility]: 0 [facility] Normal Lyme Disease IgG Ab 58 kDa Ban absen t . [facility]: 0 [facility] Normal Lyme Disease IgG Ab 45 kDa Ban absen t . [facility]: [address] [place] [address] Normal Lyme Disease IgG Ab 41 kDa Ban absen t . [facility]: 0 [facility] Normal Lyme Disease IgG Ab 39 kDa Ban absen t . [facility]: [address] [place] [address] Normal Lyme Disease IgG Ab 30 kDa Ban absen t . [facility]: [address] [facility] Normal Lyme Disease IgG Ab 28 kDa Ban absen t . [facility]: [address] [facility] Normal Lyme Disease IgG Ab 23 kDa Ban absen t . [facility]: [address] [facility] Normal Lyme Disease IgG Ab 18 kDa Ban absen t . [facility]: [address] [facility] Normal Lyme Disease IgG [place] Int negat wayne . [facility]: [address] [facility] Normal Lyme Disease IgM Ab 41 kDa Ban absen t . [facility]: [address] [facility] Normal Lyme Disease IgM Ab 39 kDa Ban absen t . [facility]: [address] [facility] Normal Lyme Disease IgM Ab 23 kDa Ban absen t . [facility]: [address] [facility] Normal Lyme Disease IgM [place] Int negat wayne . [facility]: [address] [facility] 02/11/2020 LIU (Antinuclear Antibodies) Screen, Serum Blood venous Normal Antinuclear Antibodies Direct negative negative [facility]: [address] [facility] Past Encounters 03/28/2020 Nausea; Kidney Stone; Diarrhea Jennifer Barclay PA-C: [address] [place] [phone], Ph. 03/06/2020 Adult Health Examination; Mixed Anxiety and Depressive Disorder; Gastroesophageal Reflux Disease without Esophagitis; Dysuria Jennifer Barclay PA-C: [address] [place] [address], Ph. 02/11/2020 Jennifer Barclay PA-C: [address] [place] [address], Ph. 01/31/2020 Diarrhea; Pruritic Rash; Anti-nuclear Factor Positive; Fatigue; Arthropathy; Gastroesophageal Reflux Disease without Esophagitis; Administration of Influenza Vaccine; Generalized Anxiety Disorder Jennifer Barclay PA-C: [address] [place] [address], Ph. Social History Tobacco Smoking Status Never Smoker Vaccine List Vaccine Type influenza, injectable, quadrivalent, pre servative free 01/31/20200.5 mL Plan of Care Reminders Provider Appointments None recorded. Lab None recorded. Referral None recorded. Procedures None recorded. Surgeries None recorded. Imaging None recorded. Vitals 03/28/2020 08:20AM ESTABLISHED [id number] Height Weight BMI Blood Pressure 65 in [...]
--- OUTSIDE RECORDS SUMMARY | 2020-04-03 14:26 | CCD ---
Author Organization Unknown Address [address] [place] [address] Phone [phone] Care Team Providers Care Label Cutter Name Role Phone Jennifer Barclay Unavailable Unavailable Allergies Code Code System Name Reaction Severity Status Onset RxNorm Betadine Anaphylaxis Severe Active Iodinated Contrast Media Anaphylaxis Severe Active Nsaids (Non- steroidal Anti-inflammatory Drug) Nausea Moderate to Severe Active Penicillins Anaphylaxis Severe Active 30 RxNorm Reglan Bradycardia Severe Active Shellfish Derived Anaphylaxis Severe Active Medications Name Status Start Date Stop Date azithromycin 250 mg tablet TAKE 2 TABLETS BY MOUTH ON DAY 1 AND THEN TAKE 1 TABLET BY MOUTH ONCE A DAY ON DAY 2 THROUGH DAY 5 Completed 01/31/2020 clindamycin HCl 300 mg capsule TAKE 1 CAPSULE BY MOUTH THREE TIMES DAILY Completed 01/31/2020 famotidine 20 mg tablet Take 1 tablet twice a day by oral route. Active Not available meclizine 12.5 mg tablet Completed 020 nitrofurantoin monohydrate/macrocrystals 100 mg capsule Complete d [...] 01/31/2020 Tylenol Extra Strength 500 mg tablet Active Not available Problems Name Status Onset Date Source Mixed Anxiety and Depressive Disorder Active 10/11/[address] Concept Unknown 10/11/2018 History Finding of Frequency of Menstruation Active 10/11/2018 History Cyst of Ovary Active 01/31/2020 Procedures Date Name Performed by Extraction of [place] Notes: X 4 Information not available Cholecystectomy Information not avai lable Results Lab Results None recorded. Past Encounters 01/31/2020 Diarrhea; Pruritic Rash; Anti-nuclear Factor Positive; Fatigue; Arthropathy; Gastroesophageal Reflux Disease without Esophagitis; Administration of Influenza Vaccine; Generalized Anxiety Disorder Jennifer Barclay PA-C: [address] [place] [address], Ph. Social History Tobacco Smoking Status Never Smoker Vaccine List Vaccine Type influenza, injectable, quadrivalent, pre servative free 01/31/20200.5 mL Plan of Care Reminders Provider Appointments None recorded. Lab None recorded. Referral None recorded. Procedures None recorded. Surgeries None recorded. Imaging None recorded. Vitals 01/31/2020 12:40PM ANNUAL EXAM Height Weight BMI Blood Pressure 65 in 183 lbs 2 oz 30.5 kg/m2 124/78 mm[Hg] 10/11/2018 Height Weight Blood Pressure 66 in 171 lbs 121/75 mm[Hg]
--- OUTSIDE RECORDS SUMMARY | 2020-04-03 14:26 | CCD ---
Author Organization Unknown Address [address] [place] [id number] Phone [phone] Care Team Providers Care Turn Down Worker Name Role Phone Jennifer Barclay Unavailable Unavailable [...] esomeprazole magnesium 40 mg capsule,del ayed release Take 1 capsule every day by oral route. Active Not available famotidine 20 mg tablet TAKE 1 TABLET BY MOUTH TWICE DAILY Active Not available meclizine 12.5 mg tablet [...] Procedures Date Name Performed by Extraction of [place] Notes: X 4 Information not available Cholecystectomy Information not avai lable Results Lab Results Date Name Specimen Result Interpretation Description Value Range Status Address 02/11/2020 CBC W/ Auto Diff Blood venous Normal White Blood C ount 7.0 10 4.0-10.0 10 [facility]: 83 0 [facility] Blood venous Normal Red Blood Count 4.82 10 4.00- 5.40 10 [facility]: [address] [place] [address] Blood venous Normal Hemoglobin 14.1 g/dL 12.0-15. 5 g/dL [facility]: [address] [place] [address] Blood venous Normal Hematocrit 42.6 % 36.0-47.0 % [facility]: [address] [place] [address] Blood venous Normal Mean Corpuscular Volume 88.4 fL 80.0-96.0 fL [facility]: [address] [place] [address] venous Normal Mean Corpuscular Hemoglob in 29.3 pg 27.0-33.0 pg [facility]: [address] [place] [address] Blood venous Normal Mean Corpuscular HGB Conc 33.1 g/dL 32.0-36.5 g/dL [facility]: [address] [place] [address] Blood venous Normal Red Cell Distribution Wid th 11.9 % 11.5-14.5 % [facility]: [address] [place] [address] Blood venous Normal Platelet Count, Automated 319 10 150-450 10 [facility]: 0 [facility] Blood venous Normal Neutrophils % 57.3 % 36.0-66. 0 % [facility]: [address] [place] [address] Blood venous Normal Lymph % 33.9 % 24.0-44.0 % [facility]: [address] [place] [address] Blood venous High [place] % 6.9 % 0.0-5.0 % [facility]: [address] [place] [address] Blood venous Normal Eos % 1.4 % 0.0-3.0 % [facility]: [address] [place] [address] Blood venous Normal Baso % 0.4 % 0.0-1.0 % [facility]: [address] [place] [address] Blood venous Normal Immature Granulocyte % 0.1 % 0-3.0 % [facility]: [address] [place] [address] Blood venous Normal Nucleated Red Blood Cell % 0. 0 % 0-0 % [facility]: [address] [place] [address] Blood venous Normal Neutrophils # 4.0 10 1.5-8.5 10 [facility]: [address] [place] [address] Blood venous Normal Lymph # 2.4 10 1.5-5.0 10 [facility]: [address] [place] [address] Blood venous Normal [place] # 0.5 10 0.0-0.8 10 [facility]: [address] [place] [address] Blood venous Normal Eos # 0.1 10 0.0-0.5 10 [facility]: [address] [place] [address] Blood venous Normal Baso # 0.0 10 0.0-0.2 10 [facility]: [address] [place] [address] 02/11/2020 ESR (Erythrocyte Sedimentation Rate), Blood Blood venous Normal Erythrocyte Sedimentation Rate 7 mm/HR 0-20 mm/HR [facility]: [address] [place] [address] 02/11/2020 CMP, Serum or Plasma Blood venous Normal Glu cose, Fasting 92 mg/dL 70-100 mg/dL [facility] nter: [address] [place] [address] Blood venous Normal Blood Urea Nitrogen 13 mg/dL 7-18 mg/dL [facility]: [address] [place] [address] Blood venous Normal Creatinine for GFR 0.93 mg/dL 0.55-1.30 mg/dL [facility]: [address] [place] [address] Blood venous Normal Glomerular Filtration Rate > 60.0 >60 [facility]: [address] [place] [address] Blood venous Normal Sodium Level 138 mEq/L 136-14 5 mEq/L [facility]: [address] [place] [address] Blood venous Normal Potassium Serum 4.2 mEq/L 3.5 -5.1 mEq/L [facility]: [address] [place] [address] Blood venous Normal Chloride Level 106 mEq/L 98-1 07 mEq/L [facility]: 0 [facility] Blood venous Normal Carbon Dioxide Level 26 mEq/L 21-32 mEq/L [facility]: [address] [place] [address] Blood venous Low Anion Gap 6 mEq/L 8-16 mEq/L [facility]: [address] [place] [address] Blood venous Normal Calcium Level 9.2 mg/dL 8.5-1 0.1 mg/dL [facility]: [address] [place] [address] Blood venous Normal AST/SGOT 13 U/L 7-37 U/L [facility]: [address] [place] [address] Blood venous Normal ALT/SGPT 30 U/L 12-78 U/L [facility]: [address] [place] [address] Blood venous Normal Alkaline Phosphatase 90 U/L 4 5-117 U/L [facility]: [address] [place] [address] Blood venous Normal Bilirubin,total 0.3 mg/dL 0.2 -1.0 mg/dL [facility]: [address] [place] [address] Blood venous Normal Total Protein 7.5 gm/dL 6.4-8 .2 gm/dL [facility]: [address] [place] [address] Blood venous Normal Albumin 4.0 gm/dL 3.2-5.2 gm/ dL [facility]: [address] [place] [address] Blood venous Low Albumin/globulin Ratio 1.1 1.2-2.2 [facility]: [address] [place] [address] 02/11/2020 TSH, Serum or Plasma Blood venous Normal Thyroid Stimulating Hormone 0.972 uIU/mL 0.358-3.740 uIU/mL [facility] ical Center: [address] [place] [address] 02/11/2020 Rf (Rheumatoid Factor), Serum Blood venous Normal Rheumatoid Factor Quant < 10.0 IU/mL <15.0 IU/mL [facility] Center: [address] [place] [address] 02/11/2020 C Reactive Protein, QN, Serum or Plasma Normal C Reactive Protein Quantitativ 0.30 mg/dL 0.00-0.30 mg/dL [facility] Center: [address] [facility] 02/11/2020 Cyclic Citrullinated Peptide Normal Cyclic Citrullinated Peptide 5 units 0-19 units [facility] Center: [address] [facility] 02/11/2020 Lyme Disease Igg+igm Ab, Serum Normal Lyme Disease IgG/IgM Antibodie <0.91 isr 0.00-0.90 isr [facility] Center: [address] [facility] High Lyme Disease IgM Ab Quantitati 1.72 index 0.00-0.79 index [facility]: [address] [facility] Normal Lyme Disease IgG Ab 93 kDa Ban absen t . [facility]: [address] [facility] Normal Lyme Disease IgG Ab 66 kDa Ban absen t . [facility]: [address] [facility] Normal Lyme Disease IgG Ab 58 kDa Ban absen t . [facility]: [address] [facility] Normal Lyme Disease IgG Ab 45 kDa Ban absen t . [facility]: [address] [facility] Normal Lyme Disease IgG Ab 41 kDa Ban absen t . [facility]: [address] [facility] Normal Lyme Disease IgG Ab 39 kDa Ban absen t . [facility]: [address] [facility] Normal Lyme Disease IgG Ab 30 kDa Ban absen t . [facility]: [address] [facility] Normal Lyme Disease IgG Ab 28 kDa Ban absen t . [facility]: [address] [facility] Normal Lyme Disease IgG Ab 23 kDa Ban absen t . [facility]: [address] [facility] Normal Lyme Disease IgG Ab 18 kDa Ban absen t . [facility]: [address] [facility] Normal Lyme Disease IgG [place] Int negat wayne . [facility]: [address] [facility] Normal Lyme Disease IgM Ab 41 kDa Ban absen t . [facility]: [address] [facility] Normal Lyme Disease IgM Ab 39 kDa Marguerite harding . [facility]: [address] [facility] Normal Lyme Disease IgM Ab 23 kDa Marguerite harding . [facility]: [address] [facility] Normal Lyme Disease IgM [place] Int negat wayne . [facility]: [address] [facility] 02/11/2020 LIU (Antinuclear Antibodies) Screen, Serum Blood venous Normal Antinuclear Antibodies Direct negative negative [facility]: [address] [facility] Past Encounters 03/06/2020 Adult Health Examination; Mixed Anxiety and Depressive Disorder; Gastroesophageal Reflux Disease without Esophagitis; Dysuria Jennifer Barclay PA-C: [address] [place] [address], Ph. 02/11/2020 Jennifer Barclay PA-C: [address] [place] [address], Ph. 01/31/2020 Diarrhea; Pruritic Rash; Anti-nuclear Factor Positive; Fatigue; Arthropathy; Gastroesophageal Reflux Disease without Esophagitis; Administration of Influenza Vaccine; Generalized Anxiety Disorder Jennifer Barclay PA-C: [address] [place] [address], Ph. Social History Tobacco Smoking Status Never Smoker Vaccine List Vaccine Type influenza, injectable, quadrivalent, pre servative free 01/31/20200.5 mL Plan of Care Reminders Provider Appointments None recorded. Lab None recorded. Referral None recorded. Procedures None recorded. Surgeries None recorded. Imaging None recorded. Vitals 03/06/2020 01:00PM ANNUAL EXAM Height Weight BMI Blood Pressure 65 in 178 lbs 16 oz 29.8 kg/m2 110/81 mm[Hg] 01/31/2020 12:40PM ANNUAL EXAM Height Weight BMI Blood Pressure 65 in 183 lbs 2 oz 30.5 kg/m2 124/78 mm[Hg] 10/11/2018 Height Weight Blood Pressure 66 in 171 lbs 121/75 mm[Hg]
--- OUTSIDE RECORDS SUMMARY | 2020-04-03 14:26 | CCD ---
Author Author [facility] Organization [facility] Address Unknown Phone Unavailable Care Team Providers Care Gaming Table Operator Name Role Phone Man Barclay PA Unavailable Unavailable Scordo, M Jennifer PA Unavailable Unavailable Scordo, M Jennifer PA Unavailable Unavailable Scordo, M Jennifer PA Unavailable Unavailable Scordo, M Jennifer PA Unavailable Unavailable Scordo, M Jennifer PA Unavailable Unavailable Scordo, M Jennifer PA Unavailable Unavailable Scordo, M Jennifer PA Unavailable Unavailable Scordo, M Jennifer PA Unavailable Unavailable Scordo, M Jennifer PA Unavailable Unavailable Scordo, M Jennifer PA Unavailable Unavailable Scordo, M Jennifer PA Unavailable Unavailable Scordo, M Jennifer PA Unavailable Unavailable Scordo, M Jennifer PA Unavailable Unavailable Scordo, M Jennifer PA Unavailable Unavailable Scordo, M Jennifer PA Unavailable Unavailable Scordo, M Jennifer PA Unavailable Unavailable Scordo, M Jennifer PA Unavailable Unavailable Scordo, M Jennifer PA Unavailable Unavailable Scordo, M Jennifer PA Unavailable Unavailable Scordo, M Jennifer PA Unavailable Unavailable Scordo, M Jennifer PA Unavailable Unavailable Scordo, M Jennifer PA Unavailable Unavailable Scordo, M Jennifer PA Unavailable Unavailable Scordo, M Jennifer PA Unavailable Unavailable Scordo, M Jennifer PA Unavailable Unavailable Scordo, M Jennifer PA Unavailable Unavailable Scordo, M Jennifer PA Unavailable Unavailable Scordo, M Jennifer PA Unavailable Unavailable Scordo, M Jennifer PA Unavailable Unavailable Scordo, M Jennifer PA Unavailable Unavailable Scordo, M Jennifer PA Unavailable Unavailable Scordo, M Jennifer PA Unavailable Unavailable Scordo, M Jennifer PA Unavailable Unavailable Scordo, M Jennifer PA Unavailable Unavailable Scordo, M Jennifer PA Unavailable Unavailable Scordo, M Jennifer PA Unavailable Unavailable Scordo, M Jennifer PA Unavailable Unavailable Scordo, M Jennifer PA Unavailable Unavailable Scordo, M Jennifer PA Unavailable Unavailable Fallon Ochoa SUPERCHARGE REPAIR SUPERVISOR SUPERCHARGE REPAIR SUPERVISOR Unavailable Unavailable Dodard, Ghassan DO Unavailable Unavailable Dodard, Ghassan DO Unavailable Unavailable Dodard, Ghassan DO Unavailable Unavailable Dodard, Ghassan DO Unavailable Unavailable Dodard, Ghassan DO Unavailable Unavailable Dodard, Ghassan DO Unavailable Unavailable Dodard, Ghassan DO Unavailable Unavailable Dodard, Ghassan DO Unavailable Unavailable Dodard, Ghassan DO Unavailable Unavailable Dodard, Ghassan DO Unavailable Unavailable Dodard, Ghassan DO Unavailable Unavailable Dodard, Ghassan DO Unavailable Unavailable Dodard, Ghassan DO Unavailable Unavailable Dodard, Ghassan DO Unavailable Unavailable Dodard, Ghassan DO Unavailable Unavailable Dodard, Ghassan DO Unavailable Unavailable Dodard, Ghassan DO Unavailable Unavailable Dodard, Ghassan DO Unavailable Unavailable Dodard, Ghassan DO Unavailable Unavailable Dodard, Ghassan DO Unavailable Unavailable Dodard, Ghassan DO Unavailable Unavailable Dodard, Ghassan DO Unavailable Unavailable Dodard, Ghassan DO Unavailable Unavailable Dodard, Ghassan DO Unavailable Unavailable Dodard, Ghassan DO Unavailable Unavailable Dodard, Ghassan DO Unavailable Unavailable Dodard, Ghassan DO Unavailable Unavailable Dodard, Ghassan DO Unavailable Unavailable Dodard, Ghassan DO Unavailable Unavailable Dodard, Ghassan DO Unavailable Unavailable Dodard, Ghassan DO Unavailable Unavailable Dodard, Ghassan DO Unavailable Unavailable Dodard, Ghassan DO Unavailable Unavailable Dodard, Ghassan DO Unavailable Unavailable Dodard, Ghassan DO Unavailable Unavailable Dodard, Ghassan DO Unavailable Unavailable Dodard, Ghassan DO Unavailable Unavailable Dodard, Ghassan DO Unavailable Unavailable Dodard, Ghassan DO Unavailable Unavailable Dodard, Ghassan DO Unavailable Unavailable Dodard, Ghassan DO Unavailable Unavailable Dodard, Ghassan DO Unavailable Unavailable Dodard, Ghassan DO Unavailable Unavailable Dodard, Ghassan DO Unavailable Unavailable Re-disclosure Warning The records that you are about to access may contain information from federally-assisted alcohol or drug abuse programs. If such information is present, then the following federally mandated warning applies: This information has been disclosed to you from records protected by federal confidentiality rules (42 CFR part 2). The federal rules prohibit you from making any further disclosure of this information unless further disclosure is expressly permitted by the written consent of the person to whom it pertains or as otherwise permitted by 42 CFR part 2. A general authorization for the release of medical or other information is NOT sufficient for this purpose. The Federal rules restrict any use of the information to criminally investigate or prosecute any alcohol or drug abuse patient.The records that you are about to access may contain highly sensitive health information, the redisclosure of which is protected by Article 27-F of the [facility] Public Health law. If you continue you may have access to information: Regarding HIV / AIDS; Provided by facilities licensed or operated by the [facility] Office of Mental Health; or Provided by the [facility] Office for People With Developmental Disabilities. If such information is present, then the following [facility] mandated warning applies: This information has been disclosed to you from confidential records which are protected by state law. State law prohibits you from making any further disclosure of this information without the specific written consent of the person to whom it pertains, or as otherwise permitted by law. Any unauthorized further disclosure in violation of state law may result in a fine or residential sentence or both. A general authorization for the release of medical or other information is NOT sufficient authorization for further disc losure. Family History Family Member Name Family Member Gender Family Member Status Date o f Status Description Data Source(s) Unknown Unknown Problem [facility] ([facility]) Encounters Encounter Providers Location Date Indications Data Source(s ) Jennifer Barclay PA-C: [address], [place] [address], Ph. Attender: Jennifer [facility] 04/02/2020 12:00:00 AM EST [facility] Unknown [address] [facility] [address] 04/01/2020 12:00:00 AM EST [facility] ([facility]) Jennifer Barclay PA-C: [address], [place] [address], Ph. Attender: Jennifer [facility] 03/28/2020 12:00:00 AM EST [facility]) Jennifer Barclay PA-C: [address], [place] [address], Ph. Attender: Jennifer [facility] 03/28/2020 12:00:00 AM EST [facility]) Jennifer Barclay PA-C: [address], [place] [address], Ph. Attender: Jennifer [facility] 03/06/2020 12:00:00 AM EST [facility]) Jennifer Barclay PA-C: [address], [place] [address], Ph. Attender: Jennifer [facility] 03/06/2020 12:00:00 AM EST [facility]) Jennifer Barclay PA-C: [address], [place] [address], Ph. Attender: Jennifer [facility] 03/06/2020 12:00:00 AM EST [facility]) Jennifer Barclay PA-C: [address], [place] [address], Ph. Attender: Jennifer [facility] 02/11/2020 12:00:00 AM EST [facility]) Jennifer Barclay PA-C: [address], [place] [address], Ph. Attender: Jennifer [facility] 02/11/2020 12:00:00 AM EST [facility]) Jennifer Barclay PA-C: [address], [place] [address], Ph. Attender: Jennifer [facility] 02/11/2020 12:00:00 AM EST [facility]) Jennifer Barclay PA-C: [address], [place] [address], Ph. Attender: Jennifer [facility] 02/11/2020 12:00:00 AM EST [facility] ([facility]) Jennfier Barclay PA-C: [address], [place] [address], Ph. Attender: Jennifer [facility] 01/31/2020 12:00:00 AM EST [facility]) Jennifer Barclay PA-C: [address], [place] [address], Ph. Attender: Jennifer [facility] 01/31/2020 12:00:00 AM EST [facility] ([facility]) Jennifer Barclay PA-C: [address] [place] [address], Ph. Attender: Jennifer [facility] 01/31/2020 12:00:00 AM EST [facility]) Jennifer Barclay PA-C: [address] [place] [place] [address], Ph. Attender: Jennifer [facility] 01/31/2020 12:00:00 AM EST [facility] ([facility]) Jennifer Barclay PA-C: [address], [place] [address], Ph. Attender: Jennifer [facility] 01/31/2020 12:00:00 AM EST [facility] ([facility]) Outpatient Attender: URSULA VERGARA FP 01/01/2020 10:24:00 AM EDT [facility] Outpatient Attender: URSULA HOLDER 09/13/2019 12:02:15 AM EDT [facility] Outpatient Referrer: Ghassan Amaro DO 09/06/2019 08:39:00 AM EDT [facility] Outpatient Referrer: Ghassan Amaro DO 08/28/2019 09:54:00 AM EDT [facility] Outpatient Referrer: Ghassan Amaro DO 08/28/2019 09:54:00 AM EDT [facility] Outpatient Referrer: Ghassan Amaro DO 08/28/2019 09:53:00 AM EDT [facility] Outpatient Referrer: Ghassan Amaro DO 08/28/2019 09:53:00 AM EDT [facility] Outpatient Referrer: Ghassan Amaro DO 08/28/2019 09:51:00 AM EDT [facility] Outpatient Referrer: Ghassan Amaro DO 08/28/2019 09:51:00 AM EDT [facility] Outpatient Referrer: Ghassan Amaro DO 08/28/2019 09:51:00 AM EDT [facility] Referrer: Ghassan Amaro DO 08/28/2019 09:50:00 AM EDT [facility] Referrer: Ghassan Amaro DO 08/21/2019 11:57:00 AM EDT [facility]patient 06/28/2019 05:26:00 AM EDT [facility] 06/14/2019 05:26:00 AM EDT [facility] Immunizations Vaccine Date Status Description Data Source(s) New in 2011. IIV4 01/31/2020 02:40:00 PM EST completed 0.5 mL [facility] ([facility]) New in 2011. IIV4 01/31/2020 02:40:00 PM EST completed 0.5 mL [facility] ([facility]) New in 2011. IIV4 01/31/2020 02:40:00 PM EST completed 0.5 mL [facility] ([facility]) New in 2011. IIV4 01/31/2020 02:40:00 PM EST completed 0.5 mL [facility] ([facility]) New in 2011. IIV4 01/31/2020 02:40:00 PM EST completed .5 mL [facility] ([facility]) Medications Medication Brand Name Start Date Product Form Dose Route Admi nistrative Instructions Pharmacy Instructions Status Indications Reaction Description Data Source(s) Promethazine Hydrochloride 12.5 MG Oral Tablet promethazine 12.5 mg tablet TAKE 1 TABLET BY MOUTH EVERY 6 TO 8 HOURS NEEDED FOR MOTION SICKNESS promethazine 12.5 mg tablet TAKE 1 TABLET BY MOUTH EVERY 6 TO 8 HOURS NEEDED FOR MOTION SICKNESS completed prome thazine hydrochloride 12.5 MG Oral Tablet [facility] ([facility]) Ondansetron 4 MG Oral Tablet ondansetron HCl 4 mg tabl et ondansetron HCl 4 mg tablet completed ondansetron 4 M G Oral Tablet [facility] ([facility]) Promethazine Hydrochloride 12.5 MG Oral Tablet promethazine 12.5 mg tablet TAKE 1 TABLET BY MOUTH EVERY 6 TO 8 HOURS NEEDED FOR MOTION SICKNESS promethazine 12.5 mg tablet TAKE 1 TABLET BY MOUTH EVERY 6 TO 8 HOURS NEEDED FOR MOTION SICKNESS completed prome thazine hydrochloride 12.5 MG Oral Tablet [facility] ([facility]) Phenazopyridine hydrochloride 200 MG Oral Tablet phena zopyridine 200 mg tablet phenazopyridine 200 mg tablet complete d phenazopyridine hydrochloride 200 MG Oral Tablet [facility] ([facility]) tramadol hydrochloride 50 MG Oral Tablet tramadol 50 m g tablet tramadol 50 mg tablet completed tramadol hydroc hloride 50 MG Oral Tablet [facility]) Acetaminophen 500 MG Oral Tablet [Tylenol] Tylenol Ext ra Strength 500 mg tablet Tylenol Extra Strength 500 mg tablet c ompleted acetaminophen 500 MG Oral Tablet [Tylenol] [facility] ([facility]) Ondansetron 4 MG Disintegrating Oral Tab let ondansetron 4 mg disintegrating tablet ondansetron 4 mg disintegrating tablet completed ondansetron 4 MG Disintegrating Oral Tablet [facility] ([facility]) Phenazopyridine hydrochloride 200 MG Oral Tablet phena zopyridine 200 mg tablet phenazopyridine 200 mg tablet complete d phenazopyridine hydrochloride 200 MG Oral Tablet [facility] ([facility]) Ondansetron 4 MG Disintegrating Oral Tab let ondansetron 4 mg disintegrating tablet ondansetron 4 mg disintegrating tablet completed ondansetron 4 MG Disintegrating Oral Tablet [facility] ([facility]) Ondansetron 4 MG Disintegrating Oral Tab let ondansetron 4 mg disintegrating tablet ondansetron 4 mg disintegrating tablet completed ondansetron 4 MG Disintegrating Oral Tablet [facility] ([facility]) Azithromycin 250 MG Oral Tablet azithrom ycin 250 mg tablet TAKE 2 TABLETS BY MOUTH ON DAY 1 AND THEN TAKE 1 TABLET BY MOUTH ONCE A DAY ON DAY 2 THROUGH DAY 5 azithromycin 250 mg tablet TAKE 2 TABLET S BY MOUTH ON DAY 1 AND THEN TAKE 1 TABLET BY MOUTH ONCE A DAY ON DAY 2 THROUGH DAY 5 completed azithromycin 250 MG Oral Tablet [place] ([facility]) tramadol hydrochloride 50 MG Oral Tablet tramadol 50 m g tablet tramadol 50 mg tablet completed tramadol hydroc hloride 50 MG Oral Tablet [facility] ([facility]) Meclizine Hydrochloride 12.5 MG Oral Tablet meclizine 12.5 mg tablet meclizine 12.5 mg tablet completed meclizine hydrochloride 12.5 MG Oral Tablet [facility] ([facility]) Clindamycin 300 MG Oral Capsule clindamy martina HCl 300 mg capsule TAKE 1 CAPSULE BY MOUTH THREE TIMES DAILY clindamycin HCl 300 mg capsule TAKE 1 CA PSULE BY MOUTH THREE TIMES DAILY completed clin damycin 300 MG Oral Capsule [facility] ([facility]) NITROFURANTOIN, MACROCRYSTALS 25 MG / Ni trofurantoin, Monohydrate 75 MG Oral Capsule nitrofurantoin monohydrate/macrocrystals 100 mg capsule nitrofurantoin monohydrate/macrocrystals 100 mg capsule completed nitrofurantoin, macrocrystals 25 MG / nitrofurantoin, monohydrate 75 MG Oral Capsule [place] ([facility]) Esomeprazole 40 MG Delayed Release Oral Capsule esomeprazole magnesium 40 mg capsule,delayed release TAKE 1 CAPSULE BY MOUTH ONCE DAILY esomeprazole magnesium 40 mg capsule,delayed release TAKE 1 CAPSULE BY MOUTH ONCE DAILY completed esomeprazole 40 MG Del ayed Release Oral Capsule [facility] ([facility]) NITROFURANTOIN, MACROCRYSTALS 25 MG / Ni trofurantoin, Monohydrate 75 MG Oral Capsule nitrofurantoin monohydrate/macrocrystals 100 mg capsule nitrofurantoin monohydrate/macrocrystals 100 mg capsule completed nitrofurantoin, macrocrystals 25 MG / nitrofurantoin, monohydrate 75 MG Oral Capsule [facility] ([facility]) Promethazine Hydrochloride 12.5 MG Oral Tablet promethazine 12.5 mg tablet TAKE 1 TABLET BY MOUTH EVERY 6 TO 8 HOURS NEEDED FOR MOTION SICKNESS promethazine 12.5 mg tablet TAKE 1 TABLET BY MOUTH EVERY 6 TO 8 HOURS NEEDED FOR MOTION SICKNESS completed prome thazine hydrochloride 12.5 MG Oral Tablet [facility] ([facility]) Clindamycin 300 MG Oral Capsule clindamy martina HCl 300 mg capsule TAKE 1 CAPSULE BY MOUTH THREE TIMES DAILY clindamycin HCl 300 mg capsule TAKE 1 CA PSULE BY MOUTH THREE TIMES DAILY completed clin damycin 300 MG Oral Capsule [facility] ([facility]) Clindamycin 300 MG Oral Capsule clindamy martina HCl 300 mg capsule TAKE 1 CAPSULE BY MOUTH THREE TIMES DAILY clindamycin HCl 300 mg capsule TAKE 1 CA PSULE BY MOUTH THREE TIMES DAILY completed clin damycin 300 MG Oral Capsule [facility] ([facility]) tramadol hydrochloride 50 MG Oral Tablet tramadol 50 m g tablet tramadol 50 mg tablet completed tramadol hydroc hloride 50 MG Oral Tablet [facility] ([facility]) Sulfamethoxazole 800 MG / Trimethoprim 1 60 MG Oral Tablet sulfamethoxazole 800 mg-trimethoprim 160 mg tablet sulfamethoxazole 800 mg-trimethoprim 160 mg tablet completed sulfame thoxazole 800 MG / trimethoprim 160 MG Oral Tablet [facility] ([facility]) Sulfamethoxazole 800 MG / Trimethoprim 1 60 MG Oral Tablet sulfamethoxazole 800 mg-trimethoprim 160 mg tablet sulfamethoxazole 800 mg-trimethoprim 160 mg tablet completed sulfame thoxazole 800 MG / trimethoprim 160 MG Oral Tablet [place] ([facility]) Clindamycin 300 MG Oral Capsule clindamy martina HCl 300 mg capsule TAKE 1 CAPSULE BY MOUTH THREE TIMES DAILY clindamycin HCl 300 mg capsule TAKE 1 CA PSULE BY MOUTH THREE TIMES DAILY completed clin damycin 300 MG Oral Capsule [facility] ([facility]) Azithromycin 250 MG Oral Tablet azithrom ycin 250 mg tablet TAKE 2 TABLETS BY MOUTH ON DAY 1 AND THEN TAKE 1 TABLET BY MOUTH ONCE A DAY ON DAY 2 THROUGH DAY 5 azithromycin 250 mg tablet TAKE 2 TABLET S BY MOUTH ON DAY 1 AND THEN TAKE 1 TABLET BY MOUTH ONCE A DAY ON DAY 2 THROUGH DAY 5 completed azithromycin 250 MG Oral Tablet [place] ([facility]) tramadol hydrochloride 50 MG Oral Tablet tramadol 50 m g tablet tramadol 50 mg tablet completed tramadol hydroc hloride 50 MG Oral Tablet [facility]) Phenazopyridine hydrochloride 200 MG Oral Tablet phena zopyridine 200 mg tablet phenazopyridine 200 mg tablet complete d phenazopyridine hydrochloride 200 MG Oral Tablet [place] ([facility]) Sulfamethoxazole 800 MG / Trimethoprim 1 60 MG Oral Tablet sulfamethoxazole 800 mg-trimethoprim 160 mg tablet sulfamethoxazole 800 mg-trimethoprim 160 mg tablet completed sulfame thoxazole 800 MG / trimethoprim 160 MG Oral Tablet [place] ([facility]) Ondansetron 4 MG Disintegrating Oral Tab let ondansetron 4 mg disintegrating tablet ondansetron 4 mg disintegrating tablet completed ondansetron 4 MG Disintegrating Oral Tablet [facility] ([facility]) NITROFURANTOIN, MACROCRYSTALS 25 MG / Ni trofurantoin, Monohydrate 75 MG Oral Capsule nitrofurantoin monohydrate/macrocrystals 100 mg capsule nitrofurantoin monohydrate/macrocrystals 100 mg capsule completed nitrofurantoin, macrocrystals 25 MG / nitrofurantoin, monohydrate 75 MG Oral Capsule [facility] ([facility]) Ondansetron 4 MG Oral Tablet ondansetron HCl 4 mg tabl et ondansetron HCl 4 mg tablet completed ondansetron 4 M G Oral Tablet [facility]) Sulfamethoxazole 800 MG / Trimethoprim 1 60 MG Oral Tablet sulfamethoxazole 800 mg-trimethoprim 160 mg tablet sulfamethoxazole 800 mg-trimethoprim 160 mg tablet completed sulfame thoxazole 800 MG / trimethoprim 160 MG Oral Tablet [facility] ([facility]) Ondansetron 4 MG Oral Tablet ondansetron HCl 4 mg tabl et ondansetron HCl 4 mg tablet completed ondansetron 4 M G Oral Tablet [facility]) Azithromycin 250 MG Oral Tablet azithrom ycin 250 mg tablet TAKE 2 TABLETS BY MOUTH ON DAY 1 AND THEN TAKE 1 TABLET BY MOUTH ONCE A DAY ON DAY 2 THROUGH DAY 5 azithromycin 250 mg tablet TAKE 2 TABLET S BY MOUTH ON DAY 1 AND THEN TAKE 1 TABLET BY MOUTH ONCE A DAY ON DAY 2 THROUGH DAY 5 completed azithromycin 250 MG Oral Tablet [place] ([facility]) Azithromycin 250 MG Oral Tablet azithrom ycin 250 mg tablet TAKE 2 TABLETS BY MOUTH ON DAY 1 AND THEN TAKE 1 TABLET BY MOUTH ONCE A DAY ON DAY 2 THROUGH DAY 5 azithromycin 250 mg tablet TAKE 2 TABLET S BY MOUTH ON DAY 1 AND THEN TAKE 1 TABLET BY MOUTH ONCE A DAY ON DAY 2 THROUGH DAY 5 completed azithromycin 250 MG Oral Tablet [facility] ([facility]) Meclizine Hydrochloride 12.5 MG Oral Tablet meclizine 12.5 mg tablet meclizine 12.5 mg tablet completed meclizine hydrochloride 12.5 MG Oral Tablet [place] ([facility]) Clindamycin 300 MG Oral Capsule clindamy amrtina HCl 300 mg capsule TAKE 1 CAPSULE BY MOUTH THREE TIMES DAILY clindamycin HCl 300 mg capsule TAKE 1 CA PSULE BY MOUTH THREE TIMES DAILY completed clin damycin 300 MG Oral Capsule [facility] ([facility]) Azithromycin 250 MG Oral Tablet azithrom ycin 250 mg tablet TAKE 2 TABLETS BY MOUTH ON DAY 1 AND THEN TAKE 1 TABLET BY MOUTH ONCE A DAY ON DAY 2 THROUGH DAY 5 azithromycin 250 mg tablet TAKE 2 TABLET S BY MOUTH ON DAY 1 AND THEN TAKE 1 TABLET BY MOUTH ONCE A DAY ON DAY 2 THROUGH DAY 5 completed azithromycin 250 MG Oral Tablet [place] ([facility]) Ondansetron 4 MG Disintegrating Oral Tab let ondansetron 4 mg disintegrating tablet ondansetron 4 mg disintegrating tablet completed ondansetron 4 MG Disintegrating Oral Tablet [facility]) Sulfamethoxazole 800 MG / Trimethoprim 1 60 MG Oral Tablet sulfamethoxazole 800 mg-trimethoprim 160 mg tablet sulfamethoxazole 800 mg-trimethoprim 160 mg tablet completed sulfame thoxazole 800 MG / trimethoprim 160 MG Oral Tablet [place] ([facility]) Ondansetron 4 MG Oral Tablet ondansetron HCl 4 mg tabl et ondansetron HCl 4 mg tablet completed ondansetron 4 M G Oral Tablet [facility] ([facility]) Meclizine Hydrochloride 12.5 MG Oral Tablet meclizine 12.5 mg tablet meclizine 12.5 mg tablet completed meclizine hydrochloride 12.5 MG Oral Tablet [place] ([facility]) Phenazopyridine hydrochloride 200 MG Oral Tablet phena zopyridine 200 mg tablet phenazopyridine 200 mg tablet complete d phenazopyridine hydrochloride 200 MG Oral Tablet [place] ([facility]) Ondansetron 4 MG Oral Tablet ondansetron HCl 4 mg tabl et ondansetron HCl 4 mg tablet completed ondansetron 4 M G Oral Tablet [facility] ([facility]) Meclizine Hydrochloride 12.5 MG Oral Tablet meclizine 12.5 mg tablet meclizine 12.5 mg tablet completed meclizine hydrochloride 12.5 MG Oral Tablet [place] ([facility]) tramadol hydrochloride 50 MG Oral Tablet tramadol 50 m g tablet tramadol 50 mg tablet completed tramadol hydroc hloride 50 MG Oral Tablet [facility] ([facility]) Esomeprazole 40 MG Delayed Release Oral Capsule esomeprazole magnesium 40 mg capsule,delayed release TAKE 1 CAPSULE BY MOUTH ONCE DAILY esomeprazole magnesium 40 mg capsule,delayed release TAKE 1 CAPSULE BY MOUTH ONCE DAILY completed esomeprazole 40 MG Del ayed Release Oral Capsule [facility] ([facility]) Meclizine Hydrochloride 12.5 MG Oral Tablet meclizine 12.5 mg tablet meclizine 12.5 mg tablet completed meclizine hydrochloride 12.5 MG Oral Tablet [facility] ([facility]) Acetaminophen 500 MG Oral Tablet [Tylenol] Tylenol Ext ra Strength 500 mg tablet Tylenol Extra Strength 500 mg tablet c ompleted acetaminophen 500 MG Oral Tablet [Tylenol] [facility] ([facility]) Promethazine Hydrochloride 12.5 MG Oral Tablet promethazine 12.5 mg tablet TAKE 1 TABLET BY MOUTH EVERY 6 TO 8 HOURS NEEDED FOR MOTION SICKNESS promethazine 12.5 mg tablet TAKE 1 TABLET BY MOUTH EVERY 6 TO 8 HOURS NEEDED FOR MOTION SICKNESS completed prome thazine hydrochloride 12.5 MG Oral Tablet [facility] ([facility]) NITROFURANTOIN, MACROCRYSTALS 25 MG / Ni trofurantoin, Monohydrate 75 MG Oral Capsule nitrofurantoin monohydrate/macrocrystals 100 mg capsule nitrofurantoin monohydrate/macrocrystals 100 mg capsule completed nitrofurantoin, macrocrystals 25 MG / nitrofurantoin, monohydrate 75 MG Oral Capsule [facility] ([facility]) NITROFURANTOIN, MACROCRYSTALS 25 MG / Ni trofurantoin, Monohydrate 75 MG Oral Capsule nitrofurantoin monohydrate/macrocrystals 100 mg capsule nitrofurantoin monohydrate/macrocrystals 100 mg capsule completed nitrofurantoin, macrocrystals 25 MG / nitrofurantoin, monohydrate 75 MG Oral Capsule [facility] ([facility]) Phenazopyridine hydrochloride 200 MG Oral Tablet phena zopyridine 200 mg tablet phenazopyridine 200 mg tablet complete d phenazopyridine hydrochloride 200 MG Oral Tablet [facility] ([facility]) Promethazine Hydrochloride 12.5 MG Oral Tablet promethazine 12.5 mg tablet TAKE 1 TABLET BY MOUTH EVERY 6 TO 8 HOURS NEEDED FOR MOTION SICKNESS promethazine 12.5 mg tablet TAKE 1 TABLET BY MOUTH EVERY 6 TO 8 HOURS NEEDED FOR MOTION SICKNESS completed prome thazine hydrochloride 12.5 MG Oral Tablet [facility] ([facility]) Insurance Providers Payer name Policy type / Coverage type Policy ID Covered constitution party ID Covered constitution party's relationship to khalil Policy Khalil Plan Information [facility] [id number] SP [id number] [facility] [id number] S [id number] [place] HUMANA [id number] 2 [id number] [place] PPO 302/307 [id number] MO2 [id number] [place] HUMANA [id number] 2 [id number] [place] P [id number] M [id number] HUMANA [place] O [id number] S [id number] EXCELLUS BCBS B [id number] O YND [id number] EAST HUMANA [id number] HU2 [id number] [place]AST HUMANA [id number] HU2 [id number] [place] PPO 302/307 [id number] MO2 [id number] [place] P [id number] S [id number] [place] Commercial [id number] Family Dependent [id number] ACTIVE DUTY [id number] 2 [id number] Blue Cross Blue Shield Commercial [id number] Family Depend ent [id number] EXCELLUS H [id number] Child [id number] EXCELLUS BCBS PI PI EXCELLUS BCBS [id number] CDF YND [id number] EXCELLUS BCBS [id number] CDF YND [id number] EXCELLUS BCBS [id number] CDF YND [id number] Excellus Blue Cross [id number] Blue Cross/Shield [id number] ID IDENTIFICATION [id number] Other In surance [id number] EXCELLUS BLUE CROSS BLUE SHIELD HEA [id number] S [id number] Blue Cross Blue Shield Commercial [id number] Family Depend ent [id number] Blue Cross Blue Shield Commercial [id number] Family Depend ent [id number] EXCELLUS H [id number] Child [id number] Blue Cross Blue Shield Commercial [id number] Family Depend ent [id number] Blue Cross Blue Shield Commercial [id number] Family Depend ent [id number] Blue Cross Blue Shield Commercial [id number] Family Depend ent [id number] Blue Cross Blue Shield Commercial [id number] Family Depend ent [id number] Blue Shield [employer] [id number] 19 [id number] EXCELLUS BCBS [id number] CDF YND [id number] EXCELLUS BCBS [id number] CDF YND [id number] Blue Cross Blue Shield Commercial [id number] Family Depend ent [id number] Blue Cross Blue Shield Commercial Family Dependent Blue Shield of [facility] [id number] 19 [id number] BLUE CROSS O [id number] M [id number] Blue Shield of [facility] UNAVAILABLE 19 UNAVAILABLE Problems, Conditions, and Diagnoses Code Display Name Description Problem Type Effective Dates Data Source(s) [id number] Cyst of ovary Cyst of Ovary Problem 01/31/2020 12:00:00 AM EST [facility] ([facility]) [id number] Cyst of ovary Cyst of Ovary Problem 01/31/2020 12:00:00 AM EST [facility] ([facility]) [id number] Cyst of ovary Cyst of Ovary Problem 01/31/2020 12:00:00 AM EST [facility] ([facility]) [id number] Cyst of ovary Cyst of Ovary Problem 01/31/2020 12:00:00 AM EST [facility] ([facility]) [id number] Cyst of ovary Cyst of Ovary Problem 01/31/2020 12:00:00 AM EST [facility] ([facility]) [id number] SNOMED CT Concept SNOMED CT Concept Problem 10/11 12:00:00 AM EDT - 01/31/2020 12:00:00 AM EST [facility] ([facility]) [id number] SNOMED CT Concept SNOMED CT Concept Problem 10/11 12:00:00 AM EDT - 01/31/2020 12:00:00 AM EST [facility] ([facility]) [id number] SNOMED CT Concept SNOMED CT Concept Problem 10/11 12:00:00 AM EDT - 01/31/2020 12:00:00 AM EST [facility] ([facility]) [id number] SNOMED CT Concept SNOMED CT Concept Problem 10/11 12:00:00 AM EDT - 01/31/2020 12:00:00 AM [facility] ([facility]) [id number] SNOMED CT Concept SNOMED CT Concept Problem 10/11 12:00:00 AM EDT - 01/31/2020 12:00:00 AM [facility] ([facility]) Results ID Date Data Source [id number] 03/07/2020 11:55:00 AM [facility] ([facility]) Name Value Range Interpretation Code Description Data Maritza rce(s) Supporting Document(s) ID Date Data Source [id number] 03/07/2020 11:55:00 AM [facility] ([facility]) Name Value Range Interpretation Code Description Data Maritza rce(s) Supporting Document(s) appearance, urine rfx clear clear normal Appearance, Ur ine Rfx [place] ([facility]) specific gravity ur auto rfx 1.002-1.035 normal Specif ic [place] Ur Auto Rfx [place] ([facility]) pH,urine rfx 5.0 units 5.0-9.0 normal pH,urine Rfx [place] ([facility]) color, urine rfx yellow yellow normal Color, Urine Rfx AT [place] ([facility]) protein, urine auto rfx negative negative normal Protein, Uri ne Auto Rfx [place] ([facility]) glucose, urine (UA) auto rfx negative negative normal Glucose, Urine (UA) Auto Rfx [place] ([facility]) ketone, urine auto rfx negative negative normal Ketone, Urine Auto Rfx [place] ([facility]) bilirubin, urine auto rfx negative negative normal Bilirubin, Urine Auto Rfx [place] ([facility]) urobilinogen, urine auto rfx 0.2 mg/dL 0.0-2.0 normal Urobilinogen, Urine Auto Rfx [place] ([facility]) nitrite, urine auto rfx negative negative normal Nitrite, Uri ne Auto Rfx [facility] ([facility]) blood, urine blood rfx negative negative normal Blood, Urine Blood Rfx [facility] ([facility]) leukocyte esterase ur auto rfx trace negative Above high normal Leukocyte Esterase Ur Auto Rfx [facility] ([facility]) WBC, urine auto rfx 3 /hpf 0-3 normal WBC, Urine Auto Rfx [facility] ([facility]) squam epithelial cell ur aurfx 1 /hpf 0-6 normal Squam Epithelial Cell Ur Aurfx [facility] ([facility]) RBC, urine auto rfx 1 /hpf 0-3 normal RBC, Urine Auto Rfx [place] ([facility]) bacteria, urine auto rfx negative negative normal Bacteria, U rine Auto Rfx [place] ([facility]) hyaline cast, urine auto rfx 0 /lpf 0-1 normal Hyaline Cast, Urine Auto Rfx [place] ([facility]) ID Date Data Source [id number] 03/07/2020 11:55:00 AM EST [place] ([facility]) Name Value Range Interpretation Code Description Data Maritza rce(s) Supporting Document(s) ID Date Data Source [id number] 03/07/2020 11:55:00 AM EST [place] ([facility]) Name Value Range Interpretation Code Description Data Maritza rce(s) Supporting Document(s) appearance, urine rfx clear clear normal Appearance, Ur ine Rfx [place] ([facility]) pH,urine rfx 5.0 units 5.0-9.0 normal pH,urine Rfx [facility] ([facility]) specific gravity ur auto rfx 1.002-1.035 normal Specif ic [place] Ur Auto Rfx [place] ([facility]) color, urine rfx yellow yellow normal Color, Urine Rfx AT [place] ([facility]) glucose, urine (UA) auto rfx negative negative normal Glucose, Urine (UA) Auto Rfx [place] ([facility]) protein, urine auto rfx negative negative normal Protein, Uri ne Auto Rfx [facility] ([facility]) ketone, urine auto rfx negative negative normal Ketone, Urine Auto Rfx [facility] ([facility]) bilirubin, urine auto rfx negative negative normal Bilirubin, Urine Auto Rfx [facility] ([facility]) nitrite, urine auto rfx negative negative normal Nitrite, Uri ne Auto Rfx [facility] ([facility]) urobilinogen, urine auto rfx 0.2 mg/dL 0.0-2.0 normal Urobilinogen, Urine Auto Rfx [facility] ([facility]) leukocyte esterase ur auto rfx trace negative Above high normal Leukocyte Esterase Ur Auto Rfx [facility] ([facility]) blood, urine blood rfx negative negative normal Blood, Urine Blood Rfx [place] ([facility]) RBC, urine auto rfx 1 /hpf 0-3 normal RBC, Urine Auto Rfx [place] ([facility]) WBC, urine auto rfx 3 /hpf 0-3 normal WBC, Urine Auto Rfx [place] ([facility]) bacteria, urine auto rfx negative negative normal Bacteria, U rine Auto Rfx [facility] ([facility]) squam epithelial cell ur aurfx 1 /hpf 0-6 normal Squam Epithelial Cell Ur Aurfx [facility] ([facility]) hyaline cast, urine auto rfx 0 /lpf 0-1 normal Hyaline Cast, Urine Auto Rfx [place] ([facility]) ID Date Data Source [id number] 03/07/2020 10:29:00 AM EST [place] ([facility]) Name Value Range Interpretation Code Description Data Maritza rce(s) Supporting Document(s) HCG, serum qualitative negative negative normal HCG, Serum Qu alitative [place] ([facility]) ID Date Data Source [id number] 03/07/2020 10:29:00 AM EST [place] ([facility]) Name Value Range Interpretation Code Description Data Maritza rce(s) Supporting Document(s) lipase 178 U/L 73-393 normal Lipase [place] ([facility]) ID Date Data Source [id number] 03/07/2020 10:29:00 AM EST [facility] ([facility]) Name Value Range Interpretation Code Description Data Maritza rce(s) Supporting Document(s) glucose, fasting 95 mg/dL 70-100 normal Glucose, Fasting AT [place] ([facility]) blood urea nitrogen 8 mg/dL 7-18 normal Blood Urea Nitro gen [facility] ([facility]) sodium level 139 mEq/L 136-145 normal Sodium Level [facility] ([facility]) creatinine for GFR 0.90 mg/dL 0.55-1.30 normal Creatinine for GF R [facility] ([facility]) glomerular filtration rate > 60.0 >60 normal Glomerula r Filtration Rate [facility] ([facility]) chloride level 108 mEq/L 98-107 Above high normal Chloride Level [facility] ([facility]) potassium serum 4.2 mEq/L 3.5-5.1 normal Potassium Serum [facility] ([facility]) carbon dioxide level 24 mEq/L 21-32 normal Carbon Dioxide Level [facility] ([facility]) anion gap 7 mEq/L 8-16 Below low normal Anion Gap [facility] ( [facility]) calcium level 9.0 mg/dL 8.5-10.1 normal Calcium Level [place] ( [facility]) ID Date Data Source [id number] 03/07/2020 10:29:00 AM EST [facility] ([facility]) Name Value Range Interpretation Code Description Data Maritza rce(s) Supporting Document(s) AST/SGOT 22 U/L 7-37 normal AST/SGOT [facility] ([facility]) bilirubin,total 0.4 mg/dL 0.2-1.0 normal Bilirubin,total [facility] ([facility]) alkaline phosphatase 88 U/L 45-117 normal Alkaline Phosph atase [facility] ([facility]) ALT/SGPT 55 U/L 12-78 normal ALT/SGPT [facility] ([facility]) total protein 7.7 gm/dL 6.4-8.2 normal Total Protein [facility] ( [facility]) bilirubin,direct 0.1 mg/dL 0.0-0.2 normal Bilirubin,direct AT [place] ([facility]) albumin 4.0 gm/dL 3.2-5.2 normal Albumin [facility] ([facility]) albumin/globulin ratio 1.2-2.2 Below low normal Albumin /globulin Ratio [facility] ([facility]) ID Date Data Source [id number] 03/07/2020 10:29:00 AM EST [facility] ([facility]) Name Value Range Interpretation Code Description Data Maritza rce(s) Supporting Document(s) white blood count 6.6 10 4.0-10.0 normal White Blood Count [facility] ([facility]) hemoglobin 14.2 g/dL 12.0-15.5 normal Hemoglobin [facility] ([facility]) red blood count 4.97 10 4.00-5.40 normal Red Blood Count [facility] mean corpuscular volume 86.9 fL 80.0-96.0 normal Mean Corpusc ular Volume [facility] ([facility]) hematocrit 43.2 % 36.0-47.0 normal Hematocrit [facility] ([facility]) red cell distribution width 11.9 % 11.5-14.5 normal Red Cell Distribution Width [facility] ([facility]) mean corpuscular hemoglobin 28.6 pg 27.0-33.0 normal Mean Corpuscular Hemoglobin [facility] ([facility]) mean corpuscular HGB conc 32.9 g/dL 32.0-36.5 normal Mean Corpu scular HGB Conc [facility] ([facility]) neutrophils % 60.6 % 36.0-66.0 normal Neutrophils % [facility] ( [facility]) platelet count, automated 313 10 150-450 normal Platelet C ount, Automated [facility] ([facility]) mono % 6.7 % 0.0-5.0 Above high normal [place] % [facility] ([facility]) lymph % 31.0 % 24.0-44.0 normal Lymph % [facility] ([facility]) immature granulocyte % 0.3 % 0-3.0 normal Immature Gran ulocyte % [facility] ([facility]) eos % 0.9 % 0.0-3.0 normal Eos % [facility] ([facility]) baso % 0.5 % 0.0-1.0 normal Baso % [facility] ([facility]) nucleated red blood cell % 0.0 % 0-0 normal Nucleated Red Blood Cell % [facility] ([facility]) neutrophils # 4.0 10 1.5-8.5 normal Neutrophils # [facility] ( [facility]) eos # 0.1 10 0.0-0.5 normal Eos # [facility] ([facility]) mono # 0.4 10 0.0-0.8 normal [place] # [facility] ([facility]) lymph # 2.0 10 1.5-5.0 normal Lymph # [facility] ([facility]) baso # 0.0 10 0.0-0.2 normal Baso # [facility] ([facility]) ID Date Data Source [id number] 03/07/2020 10:29:00 AM EST [place] ([facility]) Name Value Range Interpretation Code Description Data Maritza rce(s) Supporting Document(s) HCG, serum qualitative negative negative normal HCG, Serum Qu alitative [place] ([facility]) ID Date Data Source [id number] 03/07/2020 10:29:00 AM EST [facility] ([facility]) Name Value Range Interpretation Code Description Data Maritza rce(s) Supporting Document(s) lipase 178 U/L 73-393 normal Lipase [facility] ([facility]) ID Date Data Source [id number] 03/07/2020 10:29:00 AM EST [facility] ([facility]) Name Value Range Interpretation Code Description Data Maritza rce(s) Supporting Document(s) glucose, fasting 95 mg/dL 70-100 normal Glucose, Fasting AT [facility] ([facility]) blood urea nitrogen 8 mg/dL 7-18 normal Blood Urea Nitro gen [facility] ([facility]) creatinine for GFR 0.90 mg/dL 0.55-1.30 normal Creatinine for GF R [facility] ([facility]) glomerular filtration rate > 60.0 >60 normal [place] r Filtration Rate [facility] ([facility]) sodium level 139 mEq/L 136-145 normal Sodium Level [facility] ([facility]) potassium serum 4.2 mEq/L 3.5-5.1 normal Potassium Serum [facility] ([facility]) carbon dioxide level 24 mEq/L 21-32 normal Carbon Dioxide Level [facility] ([facility]) chloride level 108 mEq/L 98-107 Above high normal Chloride Level [facility] ([facility]) anion gap 7 mEq/L 8-16 Below low normal Anion Gap [facility] ( [facility]) calcium level 9.0 mg/dL 8.5-10.1 normal Calcium Level [facility] ( [facility]) ID Date Data Source [id number] 03/07/2020 10:29:00 AM EST [facility] ([facility]) Name Value Range Interpretation Code Description Data Maritza rce(s) Supporting Document(s) AST/SGOT 22 U/L 7-37 normal AST/SGOT [facility] ([facility]) alkaline phosphatase 88 U/L 45-117 normal Alkaline Phosph atase [facility] ([facility]) ALT/SGPT 55 U/L 12-78 normal ALT/SGPT [facility] ([facility]) bilirubin,total 0.4 mg/dL 0.2-1.0 normal Bilirubin,total [facility] ([facility]) bilirubin,direct 0.1 mg/dL 0.0-0.2 normal Bilirubin,direct AT [place] [facility]) total protein 7.7 gm/dL 6.4-8.2 normal Total Protein [facility] ( [facility]) albumin 4.0 gm/dL 3.2-5.2 normal Albumin [facility] ([facility]) albumin/globulin ratio 1.2-2.2 Below low normal Albumin /globulin Ratio [facility] ([facility]) ID Date Data Source [id number] 03/07/2020 10:29:00 AM EST [facility] ([facility]) Name Value Range Interpretation Code Description Data Maritza rce(s) Supporting Document(s) white blood count 6.6 10 4.0-10.0 normal White Blood Count [facility] ([facility]) red blood count 4.97 10 4.00-5.40 normal Red Blood Count [facility] ([facility]) hemoglobin 14.2 g/dL 12.0-15.5 normal Hemoglobin [facility] ([facility]) mean corpuscular volume 86.9 fL 80.0-96.0 normal Mean Corpusc ular Volume [place] ([facility]) hematocrit 43.2 % 36.0-47.0 normal Hematocrit [facility] ([facility]) mean corpuscular hemoglobin 28.6 pg 27.0-33.0 normal Mean Corpuscular Hemoglobin [facility] ([facility]) mean corpuscular HGB conc 32.9 g/dL 32.0-36.5 normal Mean Corpu scular HGB Conc [facility] ([facility]) red cell distribution width 11.9 % 11.5-14.5 normal Red Cell Distribution Width [facility] ([facility]) platelet count, automated 313 10 150-450 normal Platelet C ount, Automated [facility] ([facility]) neutrophils % 60.6 % 36.0-66.0 normal Neutrophils % [facility] ( [facility]) mono % 6.7 % 0.0-5.0 Above high normal [place] % [facility] ([facility]) lymph % 31.0 % 24.0-44.0 normal Lymph % [facility] ([facility]) baso % 0.5 % 0.0-1.0 normal Baso % [facility] ([facility]) eos % 0.9 % 0.0-3.0 normal Eos % [facility] ([facility]) nucleated red blood cell % 0.0 % 0-0 normal Nucleated Red Blood Cell % [facility] ([facility]) immature granulocyte % 0.3 % 0-3.0 normal Immature Gran ulocyte % [facility] ([facility]) lymph # 2.0 10 1.5-5.0 normal Lymph # [facility] ([facility]) neutrophils # 4.0 10 1.5-8.5 normal Neutrophils # [facility] ( [facility]) eos # 0.1 10 0.0-0.5 normal Eos # [facility] ([facility]) baso # 0.0 10 0.0-0.2 normal Baso # [facility] ([facility]) mono # 0.4 10 0.0-0.8 normal [place] # [facility] ([facility]) ID Date Data Source [id number] 03/06/2020 04:21:00 PM EST [facility] ([facility]) Name Value Range Interpretation Code Description Data Maritza rce(s) Supporting Document(s) bilirubin neg Bilirubin [facility] ([facility]) glucose neg Glucose [facility] ([facility]) leukocytes Leukocytes [facility] ([facility]) ketone neg Ketone [facility] ([facility]) blood neg Blood [place] ([facility]) protein +- Protein [place] ([facility]) pH Ph [facility] ([facility]) nitrite neg Nitrite [facility] ([facility]) urobilinogen neg Urobilinogen [facility] ([facility]) specific gravity Specific [place] AT [place] ([facility]) ID Date Data Source [id number] 03/06/2020 04:21:00 PM EST [facility] ([facility]) Name Value Range Interpretation Code Description Data Maritza rce(s) Supporting Document(s) bilirubin neg Bilirubin [facility] ([facility]) ketone neg Ketone [facility] ([facility]) blood neg Blood [place] ([facility]) glucose neg Glucose [place] ([facility]) pH Ph [facility] ([facility]) leukocytes Leukocytes [facility] ([facility]) nitrite neg Nitrite [facility] ([facility]) specific gravity Specific [place] AT [facility] ([facility]) protein +- Protein [facility] ([facility]) urobilinogen neg Urobilinogen [facility] ([facility]) ID Date Data Source [id number] 03/06/2020 02:00:00 PM EST [facility] ([facility]) Name Value Range Interpretation Code Description Data Maritza rce(s) Supporting Document(s) ID Date Data Source [id number] 03/06/2020 02:00:00 PM EST [facility] ([facility]) Name Value Range Interpretation Code Description Data Maritza rce(s) Supporting Document(s) ID Date Data Source [id number] 02/11/2020 10:15:00 AM EST [facility] ([facility]) Name Value Range Interpretation Code Description Data Maritza rce(s) Supporting Document(s) rheumatoid factor quant < 10.0 <15.0 normal Rheumatoid F actor Quant [facility] ([facility]) ID Date Data Source [id number] 02/11/2020 10:15:00 AM EST [place] ([facility]) Name Value Range Interpretation Code Description Data Maritza rce(s) Supporting Document(s) thyroid stimulating hormone 0.972 uIU/mL 0.358-3.740 normal Thyroid Stimulating Hormone [facility] ([facility]) ID Date Data Source [id number] 02/11/2020 10:15:00 AM EST [place] ([facility]) Name Value Range Interpretation Code Description Data Maritza rce(s) Supporting Document(s) glucose, fasting 92 mg/dL 70-100 normal Glucose, Fasting AT [facility] ([facility]) blood urea nitrogen 13 mg/dL 7-18 normal Blood Urea Nitro gen [facility] ([facility]) glomerular filtration rate > 60.0 >60 normal [place]omer[place] r Filtration Rate [place] ([facility]) sodium level 138 mEq/L 136-145 normal Sodium Level [facility] (No [facility]) creatinine for GFR 0.93 mg/dL 0.55-1.30 normal Creatinine for GF R [facility] ([facility]) potassium serum 4.2 mEq/L 3.5-5.1 normal Potassium Serum [facility] ([facility]) carbon dioxide level 26 mEq/L 21-32 normal Carbon Dioxide Level [facility] ([facility]) chloride level 106 mEq/L 98-107 normal Chloride Level [facility] ([facility]) anion gap 6 mEq/L 8-16 Below low normal Anion Gap [facility] ( [facility]) calcium level 9.2 mg/dL 8.5-10.1 normal Calcium Level [place] ( [facility]) AST/SGOT 13 U/L 7-37 normal AST/SGOT [facility] ([facility]) alkaline phosphatase 90 U/L 45-117 normal Alkaline Phosph atase [facility] ([facility]) ALT/SGPT 30 U/L 12-78 normal ALT/SGPT [facility] ([facility]) albumin 4.0 gm/dL 3.2-5.2 normal Albumin [facility] ([facility]) bilirubin,total 0.3 mg/dL 0.2-1.0 normal Bilirubin,total [facility] ([facility]) albumin/globulin ratio 1.2-2.2 Below low normal Albumin /globulin Ratio [facility] ([facility]) total protein 7.5 gm/dL 6.4-8.2 normal Total Protein [facility] ( [facility]) ID Date Data Source [id number] 02/11/2020 10:15:00 AM [facility] Name Value Range Interpretation Code Description Data Maritza rce(s) Supporting Document(s) erythrocyte sedimentation rate 7 mm/HR 0-20 normal Erythrocyte Sedimentation Rate [facility] ([facility]) ID Date Data Source [id number] 02/11/2020 10:15:00 AM EST [place] ([facility]) Name Value Range Interpretation Code Description Data Maritza rce(s) Supporting Document(s) white blood count 7.0 10 4.0-10.0 normal White Blood Count [facility] ([facility] [facility] hemoglobin 14.1 g/dL 12.0-15.5 normal Hemoglobin [facility] ([facility]) red blood count 4.82 10 4.00-5.40 normal Red Blood Count [facility] NA ([facility]) hematocrit 42.6 % 36.0-47.0 normal Hematocrit [facility] ([facility]) mean corpuscular hemoglobin 29.3 pg 27.0-33.0 normal Mean Corpuscular Hemoglobin [facility] ([facility]) red cell distribution width 11.9 % 11.5-14.5 normal Red Cell Distribution Width [facility] ([facility]) mean corpuscular HGB conc 33.1 g/dL 32.0-36.5 normal Mean Corpu scular HGB Conc [facility] ([facility]) mean corpuscular volume 88.4 fL 80.0-96.0 normal Mean Corpusc ular Volume [place] ([facility]) neutrophils % 57.3 % 36.0-66.0 normal Neutrophils % [place] ( [facility]) platelet count, automated 319 10 150-450 normal Platelet C ount, Automated [facility]) lymph % 33.9 % 24.0-44.0 normal Lymph % [place] ([facility]) eos % 1.4 % 0.0-3.0 normal Eos % [facility] ([facility]) mono % 6.9 % 0.0-5.0 Above high normal Grainger % [facility] ([facility]) baso % 0.4 % 0.0-1.0 normal Baso % [place] ([facility]) nucleated red blood cell % 0.0 % 0-0 normal Nucleated Red Blood Cell % [facility] ([facility]) neutrophils # 4.0 10 1.5-8.5 normal Neutrophils # [facility] ( [facility]) immature granulocyte % 0.1 % 0-3.0 normal Immature Gran ulocyte % [facility] ([facility]) lymph # 2.4 10 1.5-5.0 normal Lymph # [facility] ([facility]) baso # 0.0 10 0.0-0.2 normal Baso # [facility] ([facility]) mono # 0.5 10 0.0-0.8 normal Grainger # [facility] ([facility]) eos # 0.1 10 0.0-0.5 normal Eos # [facility] ([facility]) ID Date Data Source [id number] 02/11/2020 10:15:00 AM EST [place] ([facility]) Name Value Range Interpretation Code Description Data Maritza rce(s) Supporting Document(s) antinuclear antibodies direct negative negative normal Antinuclear Antibodies Direct [place] ([facility]) ID Date Data Source [id number] 02/11/2020 10:15:00 AM EST [place] ([facility]) Name Value Range Interpretation Code Description Data Maritza rce(s) Supporting Document(s) lyme disease IgG Ab 93 kDa ban absent . normal Lyme Disease IgG Ab 93 kDa Ban [place] ([facility]) lyme disease IgM Ab quantitati 1.72 index 0.00-0.79 Above high normal Lyme Disease IgM Ab Quantitati [place] ([facility]) lyme disease IgG/IgM antibodie <0.91 0.00-0.90 normal Lyme Disease IgG/IgM Antibodie [place] ([facility]) lyme disease IgG Ab 66 kDa ban absent . normal Lyme Disease IgG Ab 66 kDa Ban [place] ([facility]) lyme disease IgG Ab 45 kDa ban absent . normal Lyme Disease IgG Ab 45 kDa Ban [place] ([facility]) lyme disease IgG Ab 39 kDa ban absent . normal Lyme Disease IgG Ab 39 kDa Ban [place] ([facility]) lyme disease IgG Ab 58 kDa ban absent . normal Lyme Disease IgG Ab 58 kDa Ban [place] ([facility]) lyme disease IgG Ab 41 kDa ban absent . normal Lyme Disease IgG Ab 41 kDa Ban [place] ([facility]) lyme disease IgG Ab 18 kDa ban absent . normal Lyme Disease IgG Ab 18 kDa Ban [place] ([facility]) lyme disease IgG Ab 23 kDa ban absent . normal Lyme Disease IgG Ab 23 kDa Ban [place] ([facility]) lyme disease IgG Ab 28 kDa ban absent . normal Lyme Disease IgG Ab 28 kDa Ban [place] ([facility]) lyme disease IgG Ab 30 kDa ban absent . normal Lyme Disease IgG Ab 30 kDa Ban [place] ([facility]) lyme disease IgG west blot int negative . normal Lyme Disease IgG West Blot Int [place] ([facility]) lyme disease IgM west blot int negative . normal Lyme Disease IgM West Blot Int [place] ([facility]) lyme disease IgM Ab 23 kDa ban absent . normal Lyme Disease IgM Ab 23 kDa Ban [place] ([facility]) lyme disease IgM Ab 41 kDa ban absent . normal Lyme Disease IgM Ab 41 kDa Ban [place] ([facility]) lyme disease IgM Ab 39 kDa ban absent . normal Lyme Disease IgM Ab 39 kDa Ban [place] ([facility]) ID Date Data Source [id number] 02/11/2020 10:15:00 AM EST [facility]) Name Value Range Interpretation Code Description Data Maritza rce(s) Supporting Document(s) cyclic citrullinated peptide 5 units 0-19 normal Cyclic Citrullinated Peptide [facility]) ID Date Data Source [id number] 02/11/2020 10:15:00 AM EST [facility]) Name Value Range Interpretation Code Description Data Maritza rce(s) Supporting Document(s) C reactive protein quantitativ 0.30 mg/dL 0.00-0.30 normal C Reactive Protein Quantitativ [facility]) ID Date Data Source [id number] 02/11/2020 10:15:00 AM EST [facility]) Name Value Range Interpretation Code Description Data Maritza rce(s) Supporting Document(s) rheumatoid factor quant < 10.0 <15.0 normal Rheumatoid F actor Quant [facility]) ID Date Data Source [id number] 02/11/2020 10:15:00 AM EST [place] ([facility]) Name Value Range Interpretation Code Description Data Maritza rce(s) Supporting Document(s) thyroid stimulating hormone 0.972 uIU/mL 0.358-3.740 normal Thyroid Stimulating Hormone [place] ([facility]) ID Date Data Source [id number] 02/11/2020 10:15:00 AM EST [place] ([facility]) Name Value Range Interpretation Code Description Data Maritza rce(s) Supporting Document(s) glucose, fasting 92 mg/dL 70-100 normal Glucose, Fasting AT [facility] ([facility]) blood urea nitrogen 13 mg/dL 7-18 normal Blood Urea Nitro gen [facility] ([facility]) sodium level 138 mEq/L 136-145 normal Sodium Level [facility] (No [facility]) potassium serum 4.2 mEq/L 3.5-5.1 normal Potassium Serum [facility] ([facility]) creatinine for GFR 0.93 mg/dL 0.55-1.30 normal Creatinine for GF R [facility] ([facility]) glomerular filtration rate > 60.0 >60 normal Glomerula r Filtration Rate [facility] ([facility]) anion gap 6 mEq/L 8-16 Below low normal Anion Gap [facility] ( [facility]) chloride level 106 mEq/L 98-107 normal Chloride Level [facility] ([facility]) carbon dioxide level 26 mEq/L 21-32 normal Carbon Dioxide Level [facility] ([facility]) AST/SGOT 13 U/L 7-37 normal AST/SGOT [place] ([facility]) calcium level 9.2 mg/dL 8.5-10.1 normal Calcium Level [facility] ( [facility]) ALT/SGPT 30 U/L 12-78 normal ALT/SGPT [facility] ([facility]) alkaline phosphatase 90 U/L 45-117 normal Alkaline Phosph atase [facility] ([facility]) bilirubin,total 0.3 mg/dL 0.2-1.0 normal Bilirubin,total [facility] ([facility]) total protein 7.5 gm/dL 6.4-8.2 normal Total Protein [facility] ( [facility]) albumin 4.0 gm/dL 3.2-5.2 normal Albumin [facility] ([facility]) albumin/globulin ratio 1.2-2.2 Below low normal Albumin /globulin Ratio [facility] ([facility]) ID Date Data Source [id number] 02/11/2020 10:15:00 AM EST [place] ([facility]) Name Value Range Interpretation Code Description Data Maritza rce(s) Supporting Document(s) erythrocyte sedimentation rate 7 mm/HR 0-20 normal Erythrocyte Sedimentation Rate [facility] ([facility]) ID Date Data Source [id number] 02/11/2020 10:15:00 AM EST [place] ([facility]) Name Value Range Interpretation Code Description Data Maritza rce(s) Supporting Document(s) white blood count 7.0 10 4.0-10.0 normal White Blood Count [facility] ([facility]) hemoglobin 14.1 g/dL 12.0-15.5 normal Hemoglobin [facility] ([facility]) hematocrit 42.6 % 36.0-47.0 normal Hematocrit [facility] ([facility]) red blood count 4.82 10 4.00-5.40 normal [facility] red cell distribution width 11.9 % 11.5-14.5 normal Red Cell Distribution Width [facility] ([facility]) mean corpuscular HGB conc 33.1 g/dL 32.0-36.5 normal Mean Corpu scular HGB Conc [facility] ([facility]) mean corpuscular volume 88.4 fL 80.0-96.0 normal Mean Corpusc ular Volume [facility] ([facility]) mean corpuscular hemoglobin 29.3 pg 27.0-33.0 normal Mean Corpuscular Hemoglobin [facility] ([facility]) platelet count, automated 319 10 150-450 normal Platelet C ount, Automated [place] ([facility]) neutrophils % 57.3 % 36.0-66.0 normal Neutrophils % [place] ( [facility]) lymph % 33.9 % 24.0-44.0 normal Lymph % [place] ([facility]) eos % 1.4 % 0.0-3.0 normal Eos % [place] ([facility]) baso % 0.4 % 0.0-1.0 normal Baso % [place] ([facility]) mono % 6.9 % 0.0-5.0 Above high normal [place]inger % [facility] ([facility]) nucleated red blood cell % 0.0 % 0-0 normal Nucleated Red Blood Cell % [facility] ([facility]) neutrophils # 4.0 10 1.5-8.5 normal Neutrophils # [place] ( [facility]) immature granulocyte % 0.1 % 0-3.0 normal Immature Gran ulocyte % [place] ([facility]) lymph # 2.4 10 1.5-5.0 normal Lymph # [place] ([facility]) mono # 0.5 10 0.0-0.8 normal Grainger # [place] ([facility]) baso # 0.0 10 0.0-0.2 normal Baso # [facility] ([facility]) eos # 0.1 10 0.0-0.5 normal Eos # [facility] ([facility]) ID Date Data Source [id number] 02/11/2020 10:15:00 AM EST [place] ([facility]) Name Value Range Interpretation Code Description Data Maritza rce(s) Supporting Document(s) antinuclear antibodies direct negative negative normal Antinuclear Antibodies Direct [place] ([facility]) ID Date Data Source [id number] 02/11/2020 10:15:00 AM EST [place] ([facility]) Name Value Range Interpretation Code Description Data Maritza rce(s) Supporting Document(s) lyme disease IgM Ab quantitati 1.72 index 0.00-0.79 Above high normal Lyme Disease IgM Ab Quantitati [place] ([facility]) lyme disease IgG/IgM antibodie <0.91 0.00-0.90 normal Lyme Disease IgG/IgM Antibodie [place] ([facility]) lyme disease IgG Ab 41 kDa ban absent . normal Lyme Disease IgG Ab 41 kDa Ban [place] ([facility]) lyme disease IgG Ab 58 kDa ban absent . normal Lyme Disease IgG Ab 58 kDa Ban [place] ([facility]) lyme disease IgG Ab 66 kDa ban absent . normal Lyme Disease IgG Ab 66 kDa Ban [place] ([facility]) lyme disease IgG Ab 45 kDa ban absent . normal Lyme Disease IgG Ab 45 kDa Ban [place] ([facility]) lyme disease IgG Ab 93 kDa ban absent . normal Lyme Disease IgG Ab 93 kDa Ban [place] ([facility]) lyme disease IgG Ab 23 kDa ban absent . normal Lyme Disease IgG Ab 23 kDa Ban [place] ([facility]) lyme disease IgG Ab 30 kDa ban absent . normal Lyme Disease IgG Ab 30 kDa Ban [place] ([facility]) lyme disease IgG Ab 28 kDa ban absent . normal Lyme Disease IgG Ab 28 kDa Ban [place] ([facility]) lyme disease IgG Ab 39 kDa ban absent . normal Lyme Disease IgG Ab 39 kDa Ban [place] ([facility]) lyme disease IgG Ab 18 kDa ban absent . normal Lyme Disease IgG Ab 18 kDa Ban [place] ([facility]) lyme disease IgM Ab 39 kDa ban absent . normal Lyme Disease IgM Ab 39 kDa Ban [place] ([facility]) lyme disease IgM Ab 41 kDa ban absent . normal Lyme Disease IgM Ab 41 kDa Ban [place] ([facility]) lyme disease IgG west blot int negative . normal Lyme Disease IgG West Blot Int [place] ([facility]) lyme disease IgM Ab 23 kDa ban absent . normal Lyme Disease IgM Ab 23 kDa Ban [place] ([facility]) lyme disease IgM west blot int negative . normal Lyme Disease IgM West Blot Int [place] ([facility]) ID Date Data Source [id number] 02/11/2020 10:15:00 AM EST [place] ([facility]) Name Value Range Interpretation Code Description Data Maritza rce(s) Supporting Document(s) cyclic citrullinated peptide 5 units 0-19 normal Cyclic Citrullinated Peptide [facility]) ID Date Data Source [id number] 02/11/2020 10:15:00 AM EST [place] ([facility]) Name Value Range Interpretation Code Description Data Maritza rce(s) Supporting Document(s) C reactive protein quantitativ 0.30 mg/dL 0.00-0.30 normal C Reactive Protein Quantitativ [place] ([facility]) ID Date Data Source [id number] 02/11/2020 10[facility]15:00 [facility] Name Value Range Interpretation Code Description Data Maritza rce(s) Supporting Document(s) rheumatoid factor quant < 10.0 <15.0 normal Rheumatoid F actor Quant [place] ([facility]) ID Date Data Source [id number] 02/11/2020 10:15:00 AM EST [place] ([facility]) Name Value Range Interpretation Code Description Data Maritza rce(s) Supporting Document(s) thyroid stimulating hormone 0.972 uIU/mL 0.358-3.740 normal Thyroid Stimulating Hormone [place] ([facility]) ID Date Data Source [id number] 02/11/2020 10:15:00 AM EST [facility]) Name Value Range Interpretation Code Description Data Maritza rce(s) Supporting Document(s) glomerular filtration rate > 60.0 >60 normal [place]omerula r Filtration Rate [place] ([facility]) creatinine for GFR 0.93 mg/dL 0.55-1.30 normal Creatinine for GF R [place] ([facility]) blood urea nitrogen 13 mg/dL 7-18 normal Blood Urea Nitro gen [place] ([facility]) glucose, fasting 92 mg/dL 70-100 normal Glucose, Fasting AT [facility] ([facility]) potassium serum 4.2 mEq/L 3.5-5.1 normal Potassium Serum [facility] NA ([facility]) chloride level 106 mEq/L 98-107 normal Chloride Level [place] ([facility]) sodium level 138 mEq/L 136-145 normal Sodium Level [facility] ([facility]) AST/SGOT 13 U/L 7-37 normal AST/SGOT [place] ([facility]) anion gap 6 mEq/L 8-16 Below low normal Anion Gap [facility] ( [facility]) calcium level 9.2 mg/dL 8.5-10.1 normal Calcium Level [place] ( [facility]) carbon dioxide level 26 mEq/L 21-32 normal Carbon Dioxide Level [place] ([facility] alkaline phosphatase 90 U/L 45-117 normal Alkaline Phosph atase [place] ([facility]) ALT/SGPT 30 U/L 12-78 normal ALT/SGPT [place] ([facility]) bilirubin,total 0.3 mg/dL 0.2-1.0 normal Bilirubin,total [facility] ([facility]) albumin 4.0 gm/dL 3.2-5.2 normal Albumin [place] ([facility]) total protein 7.5 gm/dL 6.4-8.2 normal Total Protein [place] ( [facility]) albumin/globulin ratio 1.2-2.2 Below low normal Albumin /globulin Ratio [facility] ([facility]) ID Date Data Source [id number] 02/11/2020 10:15:00 AM EST [place] ([facility]) Name Value Range Interpretation Code Description Data Maritza rce(s) Supporting Document(s) erythrocyte sedimentation rate 7 mm/HR 0-20 normal Erythrocyte Sedimentation Rate [facility] ([facility]) ID Date Data Source [id number] 02/11/2020 10:15:00 AM EST [place] ([facility]) Name Value Range Interpretation Code Description Data Maritza rce(s) Supporting Document(s) white blood count 7.0 10 4.0-10.0 normal White Blood Count [place] ([facility]) red blood count 4.82 10 4.00-5.40 normal Red Blood Count [facility] ([facility]) hemoglobin 14.1 g/dL 12.0-15.5 normal Hemoglobin [place] ([facility]) hematocrit 42.6 % 36.0-47.0 normal Hematocrit [facility] ([facility]) mean corpuscular volume 88.4 fL 80.0-96.0 normal Mean Corpusc ular Volume [place] ([facility]) mean corpuscular hemoglobin 29.3 pg 27.0-33.0 normal Mean Corpuscular Hemoglobin [facility] ([facility]) mean corpuscular HGB conc 33.1 g/dL 32.0-36.5 normal Mean Corpu scular HGB Conc [facility] ([facility]) platelet count, automated 319 10 150-450 normal Platelet C ount, Automated [place] ([facility]) neutrophils % 57.3 % 36.0-66.0 normal Neutrophils % [facility] ( [facility]) red cell distribution width 11.9 % 11.5-14.5 normal Red Cell Distribution Width [facility] ([facility]) lymph % 33.9 % 24.0-44.0 normal Lymph % [facility] ([facility]) eos % 1.4 % 0.0-3.0 normal Eos % [facility] ([facility]) mono % 6.9 % 0.0-5.0 Above high normal [place]inger % [facility] ([facility]) baso % 0.4 % 0.0-1.0 normal Baso % [facility] ([facility]) immature granulocyte % 0.1 % 0-3.0 normal Immature Gran ulocyte % [facility] ([facility]) lymph # 2.4 10 1.5-5.0 normal Lymph # [facility] ([facility]) nucleated red blood cell % 0.0 % 0-0 normal Nucleated Red Blood Cell % [facility] ([facility]) neutrophils # 4.0 10 1.5-8.5 normal Neutrophils # [facility] ( [facility]) mono # 0.5 10 0.0-0.8 normal Grainger # [facility] ([facility]) baso # 0.0 10 0.0-0.2 normal Baso # [facility] ([facility]) eos # 0.1 10 0.0-0.5 normal Eos # [facility] ([facility]) ID Date Data Source [id number] 02/11/2020 10:15:00 AM EST [place] ([facility]) Name Value Range Interpretation Code Description Data Maritza rce(s) Supporting Document(s) antinuclear antibodies direct negative negative normal Antinuclear Antibodies Direct [place] ([facility]) ID Date Data Source [id number] 02/11/2020 10:15:00 AM EST [place] ([facility]) Name Value Range Interpretation Code Description Data Maritza rce(s) Supporting Document(s) lyme disease IgM Ab quantitati 1.72 index 0.00-0.79 Above high normal Lyme Disease IgM Ab Quantitati [place] ([facility]) lyme disease IgG Ab 66 kDa ban absent . normal Lyme Disease IgG Ab 66 kDa Ban [place] ([facility]) lyme disease IgG/IgM antibodie <0.91 0.00-0.90 normal Lyme Disease IgG/IgM Antibodie [place] ([facility]) lyme disease IgG Ab 93 kDa ban absent . normal Lyme Disease IgG Ab 93 kDa Ban [facility]) lyme disease IgG Ab 30 kDa ban absent . normal Lyme Disease IgG Ab 30 kDa Ban [place] ([facility]) lyme disease IgG Ab 58 kDa ban absent . normal Lyme Disease IgG Ab 58 kDa Ban [place] ([facility]) lyme disease IgG Ab 41 kDa ban absent . normal Lyme Disease IgG Ab 41 kDa Ban [place] ([facility]) lyme disease IgG Ab 45 kDa ban absent . normal Lyme Disease IgG Ab 45 kDa Ban [place] ([facility]) lyme disease IgG Ab 39 kDa ban absent . normal Lyme Disease IgG Ab 39 kDa Ban [place] ([facility]) lyme disease IgG Ab 23 kDa ban absent . normal Lyme Disease IgG Ab 23 kDa Ban [place] ([facility]) lyme disease IgG Ab 28 kDa ban absent . normal Lyme Disease IgG Ab 28 kDa Ban [place] ([facility]) lyme disease IgG Ab 18 kDa ban absent . normal Lyme Disease IgG Ab 18 kDa Ban [place] ([facility]) lyme disease IgG west blot int negative . normal Lyme Disease IgG West Blot Int [place] ([facility]) lyme disease IgM Ab 41 kDa ban absent . normal Lyme Disease IgM Ab 41 kDa Ban [place] ([facility]) lyme disease IgM Ab 23 kDa ban absent . normal Lyme Disease IgM Ab 23 kDa Ban [place] ([facility]) lyme disease IgM west blot int negative . normal Lyme Disease IgM West Blot Int [place] ([facility]) lyme disease IgM Ab 39 kDa ban absent . normal Lyme Disease IgM Ab 39 kDa Ban [place] ([facility]) ID Date Data Source [id number] 02/11/2020 10:15:00 AM EST [facility]) Name Value Range Interpretation Code Description Data Maritza rce(s) Supporting Document(s) cyclic citrullinated peptide 5 units 0-19 normal Cyclic Citrullinated Peptide [facility]) ID Date Data Source [id number] 02/11/2020 10:15:00 AM EST [facility]) Name Value Range Interpretation Code Description Data Maritza rce(s) Supporting Document(s) C reactive protein quantitativ 0.30 mg/dL 0.00-0.30 normal C Reactive Protein Quantitativ [facility]) ID Date Data Source [id number] 08/28/2019 12:00:00 AM EDT [facility] Ghassan Amaro DO Patient Name: SOO [facility]IFF[facility] [facility] [place] [facility] 1995[facility] [place] [id number] Date of Exam: 08/28/2019#: Fax: [phone] EXAM: US OB, FOLLOW-UP (GROWTH, ORGAN SYSTEMS)/FETUSCLINICAL INFORMATION: Supervision of . Followup.I have no priors for comparison. There is only a report from a prior examwhich does not suffice compared to images available. 3, Para 0, Ab 2LMP: UnknownToday's sono findings = 37 weeks 0 days, DANIELA (today's sono) = 09/18/2019Fetal Heart Rate: 150 BPMType of Gestation: SingletonIntrauterine in vertex presentat ion.Placental location: Fundal, right lateral, Grade 3S/D Ratio: 2.00Amniotic Fluid Volume: Decreased (Oligohydramnios) ELIZABETH: 9.3 cm (7.5 -24.4) MEASUREMENTS:BPD: 9.4 cm = 38 weeks 2 daysHC: 31.0 cm = 34 weeks 5 daysAC: 34.0 cm = 37 weeks 6 daysFL: 7.3 cm = 37 weeks 1 dayHL: 6.4 cm = 37 weeks 2 daysEstimated Weight: 3091 grams, 6 pounds 13 ounces, 53rd percentileThe following structures are visualized and are unremarkable:Cranium, cavum, cerebellum, choroid plexus, midline falx, lateralventricles.Unable to visualized face as the fetus was brow nishant n. anatomy cannot be confirmed in total.Accredited by the [employer] in Obstetrical Ultrasound.BONNIE Keita/Francisco you for referring ANDREA CLIFFORD to our office. Electronically Signed - SHILO HERNANDEZ DO 08/29/19 17:11 Name Value Range Interpretation Code Description Data Maritza rce(s) Supporting Document(s) ID Date Data Source [id number] 07/18/2019 11:55:00 AM EDT [facility] Name Value Range Interpretation Code Description Data Maritza rce(s) Supporting Document(s) SARS CORONAVIRUS 2 RNA [facility] This lab was ordered by [facility] and reported by [facility]. Procedure Social History Code Duration Value Status Description Data Source(s ) Smoking 07/02/2019 12:00:00 AM EDT UNK completed eCW1 ([facility]) Vital Signs ID Date Data Source UNK Name Value Range Interpretation Code Description Data Source(s) Body weight 2784 [oz_av] 2784 [oz_av] [facility] ([facility]) Systolic blood pressure 125 mm[Hg] 125 mm[Hg] A [facility] Body mass index (BMI) [Ratio] 29 kg/m2 29 kg/ m2 [facility] ([facility]) Body height 65 [in_i] 65 [in_i] [facility] ([facility]) Diastolic blood pressure 86 mm[Hg] 86 mm[Hg] [facility] ([facility]) Body weight 2784 [oz_av] 2784 [oz_av] [facility] ([facility]) Systolic blood pressure 125 mm[Hg] 125 mm[Hg] A [facility] ([facility]) Body mass index (BMI) [Ratio] 29 kg/m2 29 kg/ m2 [facility] ([facility]) Body height 65 [in_i] 65 [in_i] [facility] ([facility]) Diastolic blood pressure 86 mm[Hg] 86 mm[Hg] [facility] ([facility]) Body weight 2864 [oz_av] 2864 [oz_av] [facility] ([facility]) Systolic blood pressure 110 mm[Hg] 110 mm[Hg] A [facility] ([facility]) Body mass index (BMI) [Ratio] 29.8 kg/m2 29.8 k g/m2 [facility] ([facility]) Body height 65 [in_i] 65 [in_i] [facility] ([facility]) Diastolic blood pressure 81 mm[Hg] 81 mm[Hg] [facility] ([facility]) Body weight 2864 [oz_av] 2864 [oz_av] [facility] ([facility]) Systolic blood pressure 110 mm[Hg] 110 mm[Hg] A [facility] ([facility]) Body mass index (BMI) [Ratio] 29.8 kg/m2 29.8 k g/m2 [facility] ([facility]) Body height 65 [in_i] 65 [in_i] [facility] ([facility]) Diastolic blood pressure 81 mm[Hg] 81 mm[Hg] [facility] ([facility]) Body weight 2864 [oz_av] 2864 [oz_av] [facility] ([facility]) Systolic blood pressure 110 mm[Hg] 110 mm[Hg] A THEN ([facility]) Body mass index (BMI) [Ratio] 29.8 kg/m2 29.8 k g/m2 [facility] ([facility]) Body height 65 [in_i] 65 [in_i] [facility] ([facility]) Diastolic blood pressure 81 mm[Hg] 81 mm[Hg] [facility] ([facility]) Body weight 2930 [oz_av] 2930 [oz_av] [facility] ([facility]) Systolic blood pressure 124 mm[Hg] 124 mm[Hg] A [facility] ([facility]) Body mass index (BMI) [Ratio] 30.5 kg/m2 30.5 k g/m2 [facility] ([facility]) Body height 65 [in_i] 65 [in_i] [facility] ([facility]) Diastolic blood pressure 78 mm[Hg] 78 mm[Hg] [facility] ([facility]) Body weight 2930 [oz_av] 2930 [oz_av] [facility] ([facility]) Systolic blood pressure 124 mm[Hg] 124 mm[Hg] A THENA ([facility]) Body mass index (BMI) [Ratio] 30.5 kg/m2 30.5 k g/m2 [facility] ([facility]) Body height 65 [in_i] 65 [in_i] [facility] ([facility]) Diastolic blood pressure 78 mm[Hg] 78 mm[Hg] [facility] ([facility]) Body weight 2930 [oz_av] 2930 [oz_av] [facility] ([facility]) Systolic blood pressure 124 mm[Hg] 124 mm[Hg] A [facility] ([facility]) Body mass index (BMI) [Ratio] 30.5 kg/m2 30.5 k g/m2 [facility] ([facility]) Body height 65 [in_i] 65 [in_i] [facility] ([facility]) Diastolic blood pressure 78 mm[Hg] 78 mm[Hg] [facility] ([facility]) Body weight 2930 [oz_av] 2930 [oz_av] [facility] ([facility]) Systolic blood pressure 124 mm[Hg] 124 mm[Hg] A THENA ([facility]) Body mass index (BMI) [Ratio] 30.5 kg/m2 30.5 k g/m2 [facility] ([facility]) Body height 65 [in_i] 65 [in_i] [facility] ([facility]) Diastolic blood pressure 78 mm[Hg] 78 mm[Hg] [facility] ([facility]) Body weight 2930 [oz_av] 2930 [oz_av] [facility] ([facility]) Systolic blood pressure 124 mm[Hg] 124 mm[Hg] A THENA ([facility]) Body mass index (BMI) [Ratio] 30.5 kg/m2 30.5 k g/m2 [facility] ([facility]) Body height 65 [in_i] 65 [in_i] [facility] ([facility]) Diastolic blood pressure 78 mm[Hg] 78 mm[Hg] [facility] ([facility]) Patient Treatment Plan of Care Planned Activity Planned Date Details Description Data Source (s) Acetaminophen 500 MG Oral Tablet [Tylenol] [facility] ([facility]) tramadol hydrochloride 50 MG Oral Tablet [facility] ([facility]) Sulfamethoxazole 800 MG / Trimethoprim 160 MG Oral Tablet [facility] ([facility]) Promethazine Hydrochloride 12.5 MG Oral Tablet [facility] ([facility]) Phenazopyridine hydrochloride 200 MG Oral Tablet [facility] ([facility]) Ondansetron 4 MG Oral Tablet [facility] ([facility]) Ondansetron 4 MG Disintegrating Oral Tablet [facility] ([facility]) NITROFURANTOIN, MACROCRYSTALS 25 MG / Ni trofurantoin, Monohydrate 75 MG Oral Capsule [facility] ([facility]) Meclizine Hydrochloride 12.5 MG Oral Tablet [facility] ([facility]) Esomeprazole 40 MG Delayed Release Oral Capsule [facility] ([facility]) Clindamycin 300 MG Oral Capsule [facility] ([facility]) Azithromycin 250 MG Oral Tablet [facility] ([facility]) Acetaminophen 500 MG Oral Tablet [Tylenol] [facility] ([facility]) tramadol hydrochloride 50 MG Oral Tablet [facility] ([facility]) Sulfamethoxazole 800 MG / Trimethoprim 160 MG Oral Tablet [facility] ([facility]) Promethazine Hydrochloride 12.5 MG Oral Tablet [facility] ([facility]) Phenazopyridine hydrochloride 200 MG Oral Tablet [facility] ([facility]) Ondansetron 4 MG Oral Tablet [facility] ([facility]) Ondansetron 4 MG Disintegrating Oral Tablet [facility] ([facility]) NITROFURANTOIN, MACROCRYSTALS 25 MG / Ni trofurantoin, Monohydrate 75 MG Oral Capsule [facility] ([facility]) Meclizine Hydrochloride 12.5 MG Oral Tablet [facility] ([facility]) Esomeprazole 40 MG Delayed Release Oral Capsule [facility] ([facility]) Clindamycin 300 MG Oral Capsule [facility] ([facility]) Azithromycin 250 MG Oral Tablet [facility] ([facility]) tramadol hydrochloride 50 MG Oral Tablet [facility] ([facility]) Sulfamethoxazole 800 MG / Trimethoprim 160 MG Oral Tablet [facility] ([facility]) Promethazine Hydrochloride 12.5 MG Oral Tablet [facility] ([facility]) Phenazopyridine hydrochloride 200 MG Oral Tablet [facility] ([facility]) Ondansetron 4 MG Oral Tablet [facility] ([facility]) Ondansetron 4 MG Disintegrating Oral Tablet [facility] ([facility]) NITROFURANTOIN, MACROCRYSTALS 25 MG / Ni trofurantoin, Monohydrate 75 MG Oral Capsule [facility] ([facility]) Meclizine Hydrochloride 12.5 MG Oral Tablet [facility] ([facility]) Clindamycin 300 MG Oral Capsule [facility] ([facility]) Azithromycin 250 MG Oral Tablet [facility] ([facility]) tramadol hydrochloride 50 MG Oral Tablet [facility] ([facility]) Sulfamethoxazole 800 MG / Trimethoprim 160 MG Oral Tablet [facility] ([facility]) Promethazine Hydrochloride 12.5 MG Oral Tablet [facility] ([facility]) Phenazopyridine hydrochloride 200 MG Oral Tablet [facility] ([facility]) Ondansetron 4 MG Oral Tablet [facility] ([facility]) Ondansetron 4 MG Disintegrating Oral Tablet [facility] ([facility]) NITROFURANTOIN, MACROCRYSTALS 25 MG / Ni trofurantoin, Monohydrate 75 MG Oral Capsule [facility] ([facility]) Meclizine Hydrochloride 12.5 MG Oral Tablet [facility] ([facility]) Clindamycin 300 MG Oral Capsule [facility] ([facility]) Azithromycin 250 MG Oral Tablet [facility] ([facility]) tramadol hydrochloride 50 MG Oral Tablet [facility] ([facility]) Sulfamethoxazole 800 MG / Trimethoprim 160 MG Oral Tablet [facility] ([facility]) Promethazine Hydrochloride 12.5 MG Oral Tablet [facility] ([facility]) Phenazopyridine hydrochloride 200 MG Oral Tablet [facility] ([facility]) Ondansetron 4 MG Oral Tablet [facility] ([facility]) Ondansetron 4 MG Disintegrating Oral Tablet [facility] ([facility]) NITROFURANTOIN, MACROCRYSTALS 25 MG / Ni trofurantoin, Monohydrate 75 MG Oral Capsule [facility] ([facility]) Meclizine Hydrochloride 12.5 MG Oral Tablet [facility] ([facility]) Clindamycin 300 MG Oral Capsule [facility] ([facility]) Azithromycin 250 MG Oral Tablet [facility] ([facility])
[2020-04-03] MEDS ORDERED: KETOROLAC 30 MG/ML 1ML VIAL IV ONE (16:00)
[2020-04-03] MEDS ORDERED: GI COCKTAIL 50ML BTL(HYOSCYAMINE/MAALOX/LIDOCAINE VISCOUS)(1:3:1) PO ONE (16:00)
[2020-04-03] MEDS ORDERED: PANTOPRAZOLE 40MG VIAL (C9113 PER 1) IV ONE (16:00)
[2020-04-03 16:17] LABS: BASO % 0.4 % (0.0-1.0); EOS % 0.5 % (0.0-3.0); HEMATOCRIT 44.1 % (36.0-47.0); HEMOGLOBIN 14.7 g/dl (12.0-15.5); LYMPH % 25.1 % (24.0-44.0); MEAN CORPUSCULAR HEMOGLOBIN 29.6 pg (27.0-33.0); MEAN CORPUSCULAR HGB CONC 33.3 g/dl (32.0-36.5); MEAN CORPUSCULAR VOLUME 88.7 fl (80.0-96.0); MONO # 0.4 10^3/uL (0.0-0.8); MONO % 5.4 % (0.0-5.0); NEUTROPHILS # 5.5 10^3/uL (1.5-8.5); NEUTROPHILS % 68.4 % (36.0-66.0); PLATELET COUNT, AUTOMATED 290 10^3/uL (150-450); RED BLOOD COUNT 4.97 10^6/uL (4.00-5.40); WHITE BLOOD COUNT 8.1 10^3/uL (4.0-10.0)
[2020-04-03 16:43] LABS: ALBUMIN 4.2 GM/DL (3.2-5.2); ALT/SGPT 38 U/L (12-78); BILIRUBIN,DIRECT < 0.1 MG/DL (0.0-0.2); BILIRUBIN,TOTAL 0.3 MG/DL (0.2-1.0); LIPASE 196 U/L (73-393); TOTAL PROTEIN 7.8 GM/DL (6.4-8.2)
--- NOTE | 2020-04-03 17:03 | REP ---
INDICATION: left flank pain, right back pain COMPARISON: None TECHNIQUE: Real time jasso scale ultrasound examination using curved array transducer. FINDINGS: The bilateral kidneys are normal in contour, size, echogenicity, and reniform shape without hydronephrosis. Right kidney measures 10.3 x 4.8 x 3.6 cm with a 6 mm nonobstructing right lower pole calculus suggested. Left kidney measures 9.5 x 4.5 x 5.6 cm without evidence for nephrolithiasis. Bladder is normal in appearance. IMPRESSION: 1. Possible 6 mm nonobstructing right renal calculus. Otherwise normal renal ultrasound. <Electronically signed by Jaydon Bolivar > 04/03/20 2308
[2020-04-03] MEDS ORDERED: ASPE4PAD TOP (18:10)
[2020-04-03] MEDS ORDERED: PANT20TA6 PO (18:10)
[2020-04-03 18:16] VITALS: BP 130/72
== END 2020-04-03 18:26 | disposition home or self-care (01) ==
LOC: M ED 14:19
DX: R10.13 Epigastric pain (principal); M54.9 Dorsalgia, unspecified; R56.9 Unspecified convulsions; J45.909 Unspecified asthma, uncomplicated; Z79.899 Other long term (current) drug therapy; Z91.041 Radiographic dye allergy status; Z88.0 Allergy status to penicillin; Z88.5 Allergy status to narcotic agent; Z91.89 Other specified personal risk factors, not elsewhere classified; Z91.013 Allergy to seafood
CPT/HCPCS: 76775; 80047; 80076; 81001; 83690; 84702; 85025; 96374; 99284; C9113

== ENCOUNTER → 2020-04-28 | Outpatient (REF) | payer OTHER ==
[~2020-04-28] MED LIST changes: +ASPE4PAD TOP; +PANT20TA6 PO
[2020-04-28 18:52] LABS: AMORPHOUS SEDIMENT SMALL (NEGATIVE); APPEARANCE, URINE TURBID (CLEAR); BACTERIA, URINE AUTO NEGATIVE (NEGATIVE); BILIRUBIN, URINE AUTO NEGATIVE (NEGATIVE); BLOOD, URINE BLOOD NEGATIVE (NEGATIVE); COLOR, URINE YELLOW (YELLOW); GLUCOSE, URINE (UA) AUTO NEGATIVE (NEGATIVE); KETONE, URINE AUTO NEGATIVE (NEGATIVE); LEUKOCYTE ESTERASE, URINE AUTO 1+ (NEGATIVE); MUCUS, URINE SMALL (NEGATIVE); NITRITE, URINE AUTO NEGATIVE (NEGATIVE); PROTEIN, URINE AUTO 2+ mg/dL (NEGATIVE); RBC, URINE AUTO 0 /HPF (0-3); SPECIFIC GRAVITY URINE AUTO 1.031 (1.002-1.035); SQUAMOUS EPITHELIAL CELL UR AU 0 /HPF (0-6); UROBILINOGEN, URINE AUTO 0.2 mg/dL (0.0-2.0); WBC, URINE AUTO 0 /HPF (0-3)
== END ==
LOC: M SMT 16:57
PROVIDERS: ATTEND Nurse Practitioner Family
DX: R30.0 Dysuria (principal)
CPT/HCPCS: 81001; 87086; G0463

== ENCOUNTER → 2020-04-29 | Outpatient (CLI) | payer OTHER ==
--- NOTE | 2020-04-29 10:35 | REP ---
INDICATION: KIDNEY STONE. COMPARISON: Comparison CT study March 07, 2020 showed intrarenal calculus on the right.. TECHNIQUE: Supine KUB. FINDINGS: Bowel gas pattern is unremarkable. There are multiple surgical clips in the right upper quadrant consistent with prior cholecystectomy. There are 2 surgical clips in the right pelvis as well. There is a 7 mm calcific density overlying the lower pole the right kidney corresponding to the CT finding of an intrarenal calculus on the right. No ureteral stone is seen. No left-sided stone is appreciated. IMPRESSION: Findings consistent with intrarenal nephrolithiasis right kidney. <Electronically signed by Anup Dupont > 04/29/20 1035
== END ==
LOC: M RAD 09:43
PROVIDERS: ATTEND Nurse Practitioner Family
DX: N20.0 Calculus of kidney (principal)

== ENCOUNTER → 2020-05-09 | Outpatient (CLI) | payer OTHER ==
[2020-05-09 15:02] LABS: BASO % 0.5 % (0.0-1.0); EOS % 0.6 % (0.0-3.0); HEMATOCRIT 43.7 % (36.0-47.0); HEMOGLOBIN 14.4 g/dl (12.0-15.5); LYMPH # 1.5 10^3/uL (1.5-5.0); LYMPH % 23.2 % (24.0-44.0); MEAN CORPUSCULAR HEMOGLOBIN 29.7 pg (27.0-33.0); MEAN CORPUSCULAR VOLUME 90.1 fl (80.0-96.0); MONO # 0.4 10^3/uL (0.0-0.8); MONO % 6.6 % (2.0-8.0); NEUTROPHILS # 4.6 10^3/uL (1.5-8.5); NEUTROPHILS % 68.8 % (36.0-66.0); PLATELET COUNT, AUTOMATED 303 10^3/uL (150-450); RED BLOOD COUNT 4.85 10^6/uL (4.00-5.40); WHITE BLOOD COUNT 6.6 10^3/uL (4.0-10.0)
[2020-05-09 15:04] LABS: ALBUMIN 3.8 GM/DL (3.2-5.2); ALT/SGPT 31 U/L (12-78); BILIRUBIN,TOTAL 0.4 MG/DL (0.2-1.0); BLOOD UREA NITROGEN 15 MG/DL (7-18); CALCIUM LEVEL 9.3 MG/DL (8.5-10.1); CARBON DIOXIDE LEVEL 27 MEQ/L (21-32); CHLORIDE LEVEL 108 MEQ/L (98-107); CREATININE FOR GFR 0.99 MG/DL (0.55-1.30); GLOMERULAR FILTRATION RATE > 60.0 (>60); GLUCOSE, FASTING 88 MG/DL (70-100); POTASSIUM SERUM 4.9 MEQ/L (3.5-5.1); SODIUM LEVEL 141 MEQ/L (136-145); TOTAL PROTEIN 7.3 GM/DL (6.4-8.2)
[2020-05-09 15:21] LABS: INR 0.97; PROTHROMBIN TIME 13.1 SECONDS (12.5-14.3)
[2020-05-09 15:22] LABS: PARTIAL THROMBOPLASTIN TIME 30.1 SECONDS (24.2-38.5)
== END ==
LOC: M WUC 10:25
PROVIDERS: ATTEND Physician Assistant
DX: Z01.818 Encounter for other preprocedural examination (principal); M12.9 Arthropathy, unspecified; R19.7 Diarrhea, unspecified

== ENCOUNTER → 2020-05-24 | Outpatient (CLI) | payer OTHER ==
[~2020-05-24] MED LIST changes: +AZUR1TAB PO
== END ==
LOC: M LABSMTC 10:33
PROVIDERS: ATTEND Anesthesiology
DX: Z01.812 Encounter for preprocedural laboratory examination (principal); Z20.822 Contact with and (suspected) exposure to COVID-19

== ENCOUNTER 2020-05-29 05:55 | Day surgery (SDC) | payer OTHER ==
[~2020-05-29] VITALS: Ht 165.1 cm; Wt 77.1 kg
[2020-05-29] MEDS ORDERED: CIPROFLOXACIN 400 MG in IV 1 EA IV ONE (06:00)
[2020-05-29] MEDS ORDERED: LIDOCAINE 1% MDV 20ML VIAL SQ PRN (06:00)
[2020-05-29] MEDS ORDERED: LR 1,000 ML IV ONE (06:00)
[2020-05-29] MEDS ORDERED: FAMO1TAB11 PO (06:58)
[2020-05-29] MEDS ORDERED: propofoL 200 MG/20 ML VIAL As Ordered ONE (07:13)
[2020-05-29] MEDS ORDERED: LIDOCAINE 2% 100MG/5ML SDV (FOR ANES.) As Ordered ONE (07:13)
[2020-05-29] MEDS ORDERED: fentaNYL 100 MCG/2 ML INJECTION (J3010) As Ordered ONE (07:14)
[2020-05-29] MEDS ORDERED: MIDAZOLAM INJ 2MG/2ML VIAL (J2250 PER 1MG) As Ordered ONE (07:14)
[2020-05-29] MEDS ORDERED: GENTAMICIN/SOD CHL 80 MG/100 ML BAG (J1580) As Ordered ONE (07:27)
[2020-05-29] MEDS ORDERED: ONDANSETRON 4MG/2ML VIAL As Ordered ONE (07:48)
[2020-05-29] MEDS ORDERED: diphenhydrAMINE 50MG/ML VIAL (J1200) As Ordered ONE (07:48)
[2020-05-29] MEDS ORDERED: dexameTHASONE 4 MG/ML 1ML VIAL (J1100 PER 1MG) As Ordered ONE (07:48)
[2020-05-29] MEDS ORDERED: GENTAMICIN 80 MG in IV 1 EA IV ONE (07:50)
[2020-05-29] MEDS ORDERED: FLOM0.4C39 PO (07:51)
[2020-05-29] MEDS ORDERED: KETOROLAC 60MG 2ML VIAL As Ordered ONE (07:51)
--- NOTE | 2020-05-29 08:10 | REP ---
INDICATION: KIDNEY STONE- KUB PRIOR TO SDC COMPARISON: 04/29/2020 TECHNIQUE: Supine view of the abdomen and pelvis. FINDINGS: The previously noted right lower pole calculus may be obscured by overlying bowel gas and fecal material on current examination. Evaluation for urinary tract calcifications is significantly limited on current exam. Mild/moderate fecal stasis. No obvious bowel obstruction. Surgical clips consistent with prior cholecystectomy. Skeletal structures intact. IMPRESSION: Limited evaluation for urinary tract calcifications. <Electronically signed by Jaydon Bolivar > 05/29/20 0806
[2020-05-29 08:55] VITALS: BP 122/74
--- NOTE | 2020-05-30 08:10 | RO ---
OPERATIVE NOTE DATE OF OPERATION: 05/29/2020 PREOPERATIVE DIAGNOSIS: Right kidney stone. POSTOPERATIVE DIAGNOSIS: Right kidney stone. PROCEDURE: Right extracorporeal shock wave lithotripsy. SURGEON: Kenan Castillo MD. CASING SOAKER: None. ANESTHESIA: MAC. OPERATIVE INDICATIONS: This is a 24-year-old female who was found to have an approximately 9 mm lower pole right kidney stone. She was brought to the operating room today for treatment. DESCRIPTION OF PROCEDURE: The patient was brought to the operating room and MAC anesthesia was administered. Prophylactic antibiotics were infused. She was placed in the supine position in preparation for a right-sided extracorporeal shock wave lithotripsy. Fluoroscopy and ultrasonography were utilized to monitor stone position and fragmentation throughout the procedure. Shock waves were then delivered to the right-sided kidney stone ungated. There were no arrhythmias. The stone did appear to fragment well. After 2500 shocks, the procedure was concluded. The patient was then awakened from anesthesia and transported to the recovery room in stable condition. ESTIMATED BLOOD LOSS: 0 mL. COMPLICATIONS: None. SPECIMENS: None. PLAN: The patient will follow-up in the urology clinic in a few weeks for a postoperative visit. We will get an x-ray ahead of time to assess the residual stone burden.
== END 2020-05-29 09:15 | disposition home or self-care (01) ==
LOC: M SDC 05:55
PROVIDERS: ATTEND Urology
DX: N20.0 Calculus of kidney (principal); J45.909 Unspecified asthma, uncomplicated; R21 Rash and other nonspecific skin eruption; F41.9 Anxiety disorder, unspecified; F32.9 Major depressive disorder, single episode, unspecified; Z79.899 Other long term (current) drug therapy; Z91.013 Allergy to seafood; Z91.041 Radiographic dye allergy status; Z88.5 Allergy status to narcotic agent; Z88.0 Allergy status to penicillin
CPT/HCPCS: 50590; 74018; 81025; J0744; J1100; J1200; J1885; J2250; J2405; J3010

== ENCOUNTER → 2020-05-30 | Outpatient (REF) | payer OTHER ==
[~2020-05-30] MED LIST changes: +FAMO1TAB11 PO; +FLOM0.4C39 PO
== END ==
LOC: M SMT 17:25
PROVIDERS: ATTEND Nurse Practitioner Family
DX: N20.0 Calculus of kidney (principal)

== ENCOUNTER → 2020-06-18 | Outpatient (CLI) | payer OTHER ==
[~2020-06-18] MED LIST changes: +PANT20TA6
[2020-06-18 10:23] LABS: CALCIUM LEVEL 9.5 MG/DL (8.5-10.1)
[2020-06-18 10:40] LABS: CORTISOL AM 22.7 UG/DL (4.3-22.4); TOTAL 25(OH) VITAMIN D 14.9 NG/ML (30.0-100.0)
[2020-06-18 10:42] LABS: THYROGLOBULIN ANTIBODY < 15.0 U/ML (<60.0); THYROID PEROXIDASE ANTIBODY < 28.0 U/ML (<60.0)
[2020-06-20 14:10] LABS: ADRENOCORTICOTROPHIC HORMONE 10.6 pg/mL (7.2-63.3); TSH RECEPTOR ASSAY <1.10 IU/L (0.00-1.75)
== END ==
LOC: M WUC 08:51
PROVIDERS: ATTEND Physician Assistant
DX: Z13.228 Encounter for screening for other metabolic disorders (principal); E24.9 Cushing's syndrome, unspecified; Z83.2 Family history of diseases of the blood and blood-forming organs and certain disorders involving the immune mechanism

== ENCOUNTER → 2020-06-20 | Outpatient (REF) | payer OTHER ==
[2020-06-20 13:55] LABS: CALCIUM, URINE 10.1 MG/DL
[2020-06-20 18:27] LABS: CALCIUM, 24 HOUR URINE 65.6 MG/24HR (42-353)
== END ==
LOC: M LAB REF 12:09
PROVIDERS: ATTEND Physician Assistant
DX: Z13.228 Encounter for screening for other metabolic disorders (principal)

== ENCOUNTER → 2020-07-01 | Outpatient (CLI) | payer OTHER ==
[~2020-07-01] MED LIST changes: +MAPA500T2 PO
--- NOTE | 2020-07-01 09:18 | REP ---
INDICATION: CALCULUS OF KIDNEY COMPARISON: 05/29/2020 TECHNIQUE: Supine view of the abdomen and pelvis. FINDINGS: Bowel gas pattern is nonspecific and without obstruction or perforation. No organomegaly. Evidence for prior cholecystectomy. No abnormal calcifications. Specifically, no obvious urinary tract calcifications are identified. Skeletal structures intact. IMPRESSION: No obvious urinary tract calcifications appreciated <Electronically signed by Jaydon Bolivar > 07/01/20 0914
== END ==
LOC: M RAD 08:47
PROVIDERS: ATTEND Nurse Practitioner Family
DX: N20.0 Calculus of kidney (principal)

== ENCOUNTER → 2020-07-03 | Outpatient (CLI) | payer OTHER ==
--- NOTE | 2020-07-03 10:02 | REP ---
INDICATION: R10.2 PELVIC PAIN. COMPARISON: None. TECHNIQUE: Transabdominal and transvaginal scanning performed. FINDINGS: Uterine dimensions are 7.4 x 3.0 x 4.8 cm. Endometrial echo is 3 mm in AP dimension and centrally placed. The bladder measures 6.6 x 6.6cm. The right ovary has dimensions of 2.2 x 1.9 x 1.7 cm. The left ovary dimensions are 2.3 x 2.0 x 1.4 cm. Blood flow is seen in each ovary with duplex Doppler evaluation, with no torsion There is no adnexal mass identified. No free fluid is seen in the cul-de-sac. IMPRESSION: Negative pelvic ultrasound. <Electronically signed by Nikos Chung > 07/03/20 0943
== END ==
LOC: M WHC 07:50
PROVIDERS: ATTEND Obstetrics & Gynecology
DX: R10.2 Pelvic and perineal pain (principal)

== ENCOUNTER → 2020-07-10 | Outpatient (REF) | payer OTHER ==
[~2020-07-10] MED LIST changes: +ESTR62CR; +FLUT05CR; +VITA50005
[2020-07-10 11:54] LABS: APPEARANCE, URINE CLEAR (CLEAR); BACTERIA, URINE AUTO NEGATIVE (NEGATIVE); BILIRUBIN, URINE AUTO NEGATIVE (NEGATIVE); BLOOD, URINE BLOOD NEGATIVE (NEGATIVE); COLOR, URINE YELLOW (YELLOW); GLUCOSE, URINE (UA) AUTO NEGATIVE (NEGATIVE); KETONE, URINE AUTO NEGATIVE (NEGATIVE); LEUKOCYTE ESTERASE, URINE AUTO TRACE (NEGATIVE); MUCUS, URINE SMALL (NEGATIVE); NITRITE, URINE AUTO NEGATIVE (NEGATIVE); PROTEIN, URINE AUTO NEGATIVE (NEGATIVE); RBC, URINE AUTO 1 /HPF (0-3); SPECIFIC GRAVITY URINE AUTO 1.031 (1.002-1.035); SQUAMOUS EPITHELIAL CELL UR AU 1 /HPF (0-6); UROBILINOGEN, URINE AUTO 0.2 mg/dL (0.0-2.0); WBC, URINE AUTO 4 /HPF (0-3)
[2020-07-10 12:26] LABS: BASO # 0.1 10^3/uL (0.0-0.2); BASO % 0.7 % (0.0-1.0); EOS % 0.5 % (0.0-3.0); HEMATOCRIT 45.3 % (36.0-47.0); HEMOGLOBIN 15.4 g/dl (12.0-15.5); LYMPH % 26.3 % (24.0-44.0); MEAN CORPUSCULAR HEMOGLOBIN 30.4 pg (27.0-33.0); MEAN CORPUSCULAR VOLUME 89.3 fl (80.0-96.0); MONO # 0.5 10^3/uL (0.0-0.8); MONO % 6.5 % (2.0-8.0); NEUTROPHILS # 5.1 10^3/uL (1.5-8.5); NEUTROPHILS % 65.7 % (36.0-66.0); PLATELET COUNT, AUTOMATED 325 10^3/uL (150-450); RED BLOOD COUNT 5.07 10^6/uL (4.00-5.40); WHITE BLOOD COUNT 7.7 10^3/uL (4.0-10.0)
[2020-07-10 12:48] LABS: COMPLEMENT C3 140 MG/DL (90-180); COMPLEMENT C4 28 MG/DL (10-40)
[2020-07-10 12:51] LABS: TOTAL PROTEIN,RANDOM URINE 17.3 MG/DL (0.0-12.0)
[2020-07-16 10:39] LABS: DRVV SCREEN 36.1 SEC
[2020-07-16 10:43] LABS: PTT LUPUS TYPE ANTICOAG SCREEN 0.9 (0-1.2)
[2020-07-17 14:09] LABS: ANA (HEP2) Negative (.); ANTI CENTROMERE ANTIBODY <0.2 AI (0.0-0.9); ANTI DS-DNA AB Negative (Negative); ANTI SCLERODERMA ANTIBODIES <0.2 AI (0.0-0.9); ANTI SMITH(Sm) AB <20 Units (<20); ANTI-HISTONE ANTIBODIES 0.4 Units (0.0-0.9); ANTI-U1 RNP AB <20 Units (<20); BETA-2 GLYCOPROTEIN I ABY IGA 13 (0-25); BETA-2 GLYCOPROTEIN I ABY IGG <9 (0-20); BETA-2 GLYCOPROTEIN I ABY IGM <9 (0-32); CARDIOLIPIN IGA ANTIBODY <9 APL U/mL (0-11); CARDIOLIPIN IGG ANTIBODY <9 GPL U/mL (0-14); CARDIOLIPIN IGM ANTIBODY <9 MPL U/mL (0-12); COMPLEMENT TOTAL (CH50) > 60 U/mL (>41); SSA SJOGRENS A <0.2 AI (0.0-0.9); SSB SJOGRENS B <0.2 AI (0.0-0.9)
== END ==
LOC: M SFHCRHEU 10:10
PROVIDERS: ATTEND Internal Medicine
DX: R76.8 Other specified abnormal immunological findings in serum (principal)
CPT/HCPCS: 81001; 82570; 83520; 84156; 85025; 85730; 86038; 86146; 86147; 86160; 86162; 86225; 86235; 86255; G0463

== ENCOUNTER → 2020-07-11 | Outpatient (CLI) | payer OTHER | LOC: M WUC 08:16 | PROVIDERS: ATTEND Internal Medicine Endocrinology, Diabetes & Metabolism | DX: E27.8 Other specified disorders of adrenal gland (principal); M25.569 Pain in unspecified knee ==

== ENCOUNTER → 2020-07-11 | Outpatient (CLI) | payer OTHER ==
--- NOTE | 2020-07-11 08:58 | REP ---
INDICATION: PAIN COMPARISON: None. TECHNIQUE: AP, lateral, bilateral oblique and sunrise views right and left knee. FINDINGS: The osseous structures, joint spaces and surrounding soft tissues are intact, symmetric and normal. There is no evidence for acute fracture or dislocation. No joint effusion is appreciated. No degenerative changes. IMPRESSION: Normal bilateral knee examination. <Electronically signed by Jaydon Bolivar > 07/11/20 0851
== END ==
LOC: M WUC 08:19
PROVIDERS: ATTEND Internal Medicine
DX: M25.569 Pain in unspecified knee (principal)

== ENCOUNTER 2020-08-05 18:15 | Emergency (ER) | payer OTHER ==
[~2020-08-05] VITALS: Ht 165.1 cm; Wt 74.6 kg
[2020-08-05] MEDS ORDERED: PROM12.56 PO (18:25)
[2020-08-05] MEDS ORDERED: ACET500P3 PO (18:25)
[2020-08-05] MEDS ORDERED: ACETAMINOPHEN 500 MG TAB PO ONE (21:30)
[2020-08-05] MEDS ORDERED: NITROFURANTOIN (MACROBID) 100 MG CAP PO ONE (21:30)
[2020-08-05 21:43] LABS: BASO % 0.4 % (0.0-1.0); EOS % 0.6 % (0.0-3.0); HEMATOCRIT 45.7 % (36.0-47.0); HEMOGLOBIN 15.2 g/dl (12.0-15.5); LYMPH # 2.7 10^3/uL (1.5-5.0); LYMPH % 39.8 % (24.0-44.0); MEAN CORPUSCULAR HEMOGLOBIN 29.9 pg (27.0-33.0); MEAN CORPUSCULAR HGB CONC 33.3 g/dl (32.0-36.5); MONO # 0.5 10^3/uL (0.0-0.8); MONO % 7.7 % (2.0-8.0); NEUTROPHILS # 3.5 10^3/uL (1.5-8.5); NEUTROPHILS % 51.4 % (36.0-66.0); PLATELET COUNT, AUTOMATED 314 10^3/uL (150-450); RED BLOOD COUNT 5.08 10^6/uL (4.00-5.40); WHITE BLOOD COUNT 6.8 10^3/uL (4.0-10.0)
[2020-08-05 21:45] LABS: CHLAMYDIA DNA AMPLIFICATION NEGATIVE (NEGATIVE); GC DNA AMPLIFICATION NEGATIVE (NEGATIVE)
[2020-08-05 22:55] VITALS: BP 136/75
[2020-08-05] MEDS ORDERED: METR1GEL7 PV (23:00)
== END 2020-08-05 23:03 | disposition home or self-care (01) ==
LOC: M ED 18:15
DX: N39.0 Urinary tract infection, site not specified (principal); J45.909 Unspecified asthma, uncomplicated; Z79.3 Long term (current) use of hormonal contraceptives; Z79.899 Other long term (current) drug therapy; Z91.041 Radiographic dye allergy status; Z88.0 Allergy status to penicillin; Z88.1 Allergy status to other antibiotic agents; Z88.5 Allergy status to narcotic agent; Z88.8 Allergy status to other drugs, medicaments and biological substances; Z91.013 Allergy to seafood; Z87.440 Personal history of urinary (tract) infections; Z86.69 Personal history of other diseases of the nervous system and sense organs

== ENCOUNTER → 2020-09-15 | Outpatient (CLI) | payer OTHER ==
[~2020-09-15] MED LIST changes: +ACET500P3 PO; +ERGO500029; +METR1GEL7 PV; -VITA50005
--- NOTE | 2020-09-15 11:47 | REP ---
INDICATION: CALCULUS OF KIDNEY COMPARISON: None. TECHNIQUE: Supine view of the abdomen and pelvis. FINDINGS: Bowel gas pattern is nonspecific and without obstruction or perforation. No organomegaly. No abnormal calcifications. No obvious urinary tract calcifications are identified. Surgical clips in the right upper quadrant suggest prior cholecystectomy. Skeletal structures intact. IMPRESSION: No obvious urinary tract calcifications appreciated. <Electronically signed by Jaydon Bolivar > 09/15/20 1140
== END ==
LOC: M RAD 11:27 → M LAB 11:27
PROVIDERS: ATTEND Nurse Practitioner Family
DX: N20.0 Calculus of kidney (principal)

== ENCOUNTER 2020-10-16 11:20 | Emergency (ER) | payer OTHER ==
[~2020-10-16] VITALS: Ht 165.1 cm; Wt 73.4 kg
[2020-10-16 12:19] LABS: BASO % 0.3 % (0.0-1.0); EOS % 0.3 % (0.0-3.0); HEMATOCRIT 44.1 % (36.0-47.0); HEMOGLOBIN 14.9 g/dl (12.0-15.5); LYMPH # 2.1 10^3/uL (1.5-5.0); LYMPH % 21.3 % (24.0-44.0); MEAN CORPUSCULAR HEMOGLOBIN 30.2 pg (27.0-33.0); MEAN CORPUSCULAR HGB CONC 33.8 g/dl (32.0-36.5); MEAN CORPUSCULAR VOLUME 89.5 fl (80.0-96.0); MONO # 0.7 10^3/uL (0.0-0.8); MONO % 6.7 % (2.0-8.0); NEUTROPHILS % 71.1 % (36.0-66.0); PLATELET COUNT, AUTOMATED 307 10^3/uL (150-450); RED BLOOD COUNT 4.93 10^6/uL (4.00-5.40); WHITE BLOOD COUNT 9.8 10^3/uL (4.0-10.0)
--- NOTE | 2020-10-16 13:48 | REP ---
INDICATION: spotting/cramping. COMPARISON: 07/03/2020 a normal pelvic ultrasound TECHNIQUE: Transvesical and transvaginal imaging FINDINGS: The uterus measures 8.2 x 4.5 x 5.4 cm. The parenchymal echo pattern is unchanged. Within the endometrial cavity there is an anechoic structure with increased echoes surrounding it consistent with a gestational sac. The mean diameter is consistent with a 6 week 0 day gestational age. A tiny anechoic structure seen within the gestational sac consistent with a yolk sac, however, no echogenic material is present that would be considered consistent with a pole. Doppler interrogation of the gestational sac shows no evidence of cardiac activity. The right ovary was not visualized transvesical air transvaginally. Left ovary measures 3.1 x 2 x 2.5 cm and is within normal limits with an RI 0.51. IMPRESSION: Suspected early OB ultrasound as described above without evidence of a pole or cardiac activity. Follow-up is recommended. <Electronically signed by Kane Jasso > 10/16/20 [id number]
[2020-10-16 14:17] VITALS: BP 130/73
== END 2020-10-16 14:30 | disposition home or self-care (01) ==
LOC: M ED 11:20
DX: O46.91 Antepartum hemorrhage, unspecified, first trimester (principal); Z3A.00 Weeks of gestation of pregnancy not specified; Z88.0 Allergy status to penicillin; Z88.6 Allergy status to analgesic agent; Z91.041 Radiographic dye allergy status; Z79.899 Other long term (current) drug therapy

== ENCOUNTER 2020-10-23 09:43 | Emergency (ER) | payer OTHER ==
[~2020-10-23] VITALS: Ht 165.1 cm; Wt 72.7 kg
[2020-10-23 11:20] LABS: HEMOGLOBIN 14.4 g/dl (12.0-15.5); MEAN CORPUSCULAR HEMOGLOBIN 30.4 pg (27.0-33.0); MEAN CORPUSCULAR HGB CONC 34.3 g/dl (32.0-36.5); MEAN CORPUSCULAR VOLUME 88.6 fl (80.0-96.0); PLATELET COUNT, AUTOMATED 278 10^3/uL (150-450); RED BLOOD COUNT 4.74 10^6/uL (4.00-5.40); WHITE BLOOD COUNT 10.4 10^3/uL (4.0-10.0)
[2020-10-23 12:01] LABS: BLOOD UREA NITROGEN 6 MG/DL (7-18); CALCIUM LEVEL 9.7 MG/DL (8.5-10.1); CARBON DIOXIDE LEVEL 26 MEQ/L (21-32); CHLORIDE LEVEL 107 MEQ/L (98-107); CREATININE FOR GFR 0.72 MG/DL (0.55-1.30); GLOMERULAR FILTRATION RATE > 60.0 (>60); GLUCOSE, FASTING 95 MG/DL (70-100); HCG, SERUM QUANTITATIVE 85825 MIU/ML; POTASSIUM SERUM 4.2 MEQ/L (3.5-5.1); SODIUM LEVEL 139 MEQ/L (136-145)
[2020-10-23] MEDS ORDERED: ENDO100S PV (15:22)
[2020-10-23 15:27] VITALS: BP 114/77
== END 2020-10-23 15:51 | disposition home or self-care (01) ==
LOC: M ED 09:43
DX: O20.8 Other hemorrhage in early pregnancy (principal); Z3A.01 Less than 8 weeks gestation of pregnancy; Z88.0 Allergy status to penicillin; Z88.1 Allergy status to other antibiotic agents; Z88.5 Allergy status to narcotic agent; Z88.8 Allergy status to other drugs, medicaments and biological substances; Z91.018 Allergy to other foods; Z91.041 Radiographic dye allergy status

== ENCOUNTER → 2020-11-26 | Outpatient (CLI) | payer OTHER ==
[~2020-11-26] MED LIST changes: +ENDO100S PV
[2020-11-26 15:23] LABS: HEMATOCRIT 39.4 % (36.0-47.0); HEMOGLOBIN 13.8 g/dl (12.0-15.5); MEAN CORPUSCULAR HEMOGLOBIN 31.3 pg (27.0-33.0); MEAN CORPUSCULAR VOLUME 89.3 fl (80.0-96.0); PLATELET COUNT, AUTOMATED 284 10^3/uL (150-450); RED BLOOD COUNT 4.41 10^6/uL (4.00-5.40); WHITE BLOOD COUNT 13.2 10^3/uL (4.0-10.0)
[2020-11-26 15:52] LABS: TOTAL PROTEIN,RANDOM URINE 16.1 MG/DL (0.0-12.0)
[2020-11-26 15:57] LABS: ALT/SGPT 21 U/L (12-78); BILIRUBIN,TOTAL 0.3 MG/DL (0.2-1.0); CREATININE FOR GFR 0.68 MG/DL (0.55-1.30); GLOMERULAR FILTRATION RATE > 60.0 (>60); LDH LACTATE DEHYDROGENASE 169 U/L (84-246); URIC ACID 3.4 MG/DL (2.6-6.0)
[2020-11-26 16:42] LABS: HEPATITIS C VIRUS ABY INDEX < 0.0 INDEX (<0.8)
[2020-11-26 16:43] LABS: HIV 1&2 SCREEN CENTAUR NEGATIVE (NEGATIVE)
[2020-11-26 16:58] LABS: GC DNA AMPLIFICATION NEGATIVE (NEGATIVE)
== END ==
LOC: M PLALAB 14:04
PROVIDERS: ATTEND Advanced Practice Midwife
DX: Z36.9 Encounter for antenatal screening, unspecified (principal)

== ENCOUNTER → 2020-12-31 | Outpatient (CLI) | payer OTHER | LOC: M PLALAB 09:39 | PROVIDERS: ATTEND Advanced Practice Midwife | DX: Z34.91 Encounter for supervision of normal pregnancy, unspecified, first trimester (principal); Z3A.00 Weeks of gestation of pregnancy not specified ==

== ENCOUNTER → 2021-01-26 | Outpatient (CLI) | payer OTHER ==
--- NOTE | 2021-01-26 15:12 | REP ---
INDICATION: PREG, ANATOMY. COMPARISON: None. TECHNIQUE: Transabdominal scanning FINDINGS: Multiple ultrasonographic images of the gravid uterus shows a single living intrauterine gestation in the transverse head maternal left position. Doppler interrogation of the heart shows a heart rate of 162 beats per minute. The placenta is anterior and not low-lying. The cervix measures 2.9 cm in length and is closed. The subjective amniotic fluid volume is within normal limits. BPD: 4.9 cm 20 weeks 5 days HC: 18.1 cm 20 weeks 4 days AC: 16 cm 21 weeks 1 day FL: 3.4 cm 20 weeks 3 days The estimated weight is 379 g which is greater than the 97th percentile. anatomical structures to be unremarkable are as follows: Thalami, cavum septum pellucidum, cerebellum, cisterna magna, cerebral ventricles, spine, kidneys, urinary bladder, three-vessel umbilical cord, cord insertion, and upper lip. Anatomical structures suboptimally visualized are as follows: Four-chamber heart, ventricular outflow tracts, and upper lower extremities. IMPRESSION: Single living intrauterine gestation as described above with an estimated gestational age of 20 weeks 5 days via composite criteria and an estimated date of delivery of 06/10/2021 by today's exam. No anomalies were detected, however, I recommend a follow-up examination to optimally visualize four-chamber heart, ventricular outflow tracts, and both upper lower extremities. <Electronically signed by Kane Jasso > 01/26/21 [id number]
== END ==
LOC: M RAD 14:04
PROVIDERS: ATTEND Advanced Practice Midwife
DX: Z36.9 Encounter for antenatal screening, unspecified (principal); Z3A.20 20 weeks gestation of pregnancy